=== PATIENT | female | born 1975 | race Two or more races ===

== ENCOUNTER 2023-09-21 06:35 | Day surgery (SDC) | payer MEDICARE, MEDICAID, SELFPAY ==
[2023-09-20 13:27] LABS: Alanine Aminotransferase 21 U/L (10-49); Albumin, Serum 4.1 gm/dL (3.5-5.0); Albumin/Globulin Ratio 1.1 (1.2-2.2); Alkaline Phosphatase 130 U/L (46-116); Anion Gap 5 (7-16); Aspartate Amino Transferase 14 U/L (0-34); BUN/Creatinine Ratio 19 Ratio (12-20); Bilirubin,Total 0.2 mg/dL (0.3-1.2); Blood Urea Nitrogen 15 mg/dL (9-23); Calcium 9.9 mg/dL (8.3-10.6); Calcium (Corrected) 9.9 mg/dL (8.5-10.1); Carbon Dioxide 28.6 mMol/L (20.0-31.0); Chloride 104 mMol/L (98-107); Creatinine (Component) 0.8 mg/dL (0.6-1.3); Globulin 3.9 gm/dL (2.3-3.5); Glucose 92 mg/dL (74-106); Osmolality,Calculated 276 (275-295); Potassium 4.2 mMol/L (3.4-5.1); Sodium 138 mMol/L (136-145); eGFR > 60 See Note
[2023-09-20 13:37] LABS: COVID-19 Antigen (In-House) Negative (Negative)
--- NOTE | 2023-09-20 14:42 | SUR.PREOP ---
Caregiver Elena notified to bring pt at 0630 tomorrow for preop.
[2023-09-21] VITALS (9 sets, daily range): BP systolic 137–170; BP diastolic 82–98; PULSE 75–95; RESP 12–20; TEMP 36.2–37; O2SAT 92–99; BMI 55.3
[2023-09-21] MEDS: ALBUTEROL RT 2.5 MG/3 ML NEBU INH (07:31)
[2023-09-21] MEDS: RINGERS LACTATED 1000 ML 1,000 ML 20 ML IV (07:32)
--- NOTE | 2023-09-21 08:30 | XR_ITS ---
Examination: Bilateral retrograde pyelograms with without KUB Fluoroscopy 11 spot fluoroscopic abdomen films Exam date and time: September 21, 2023 0933 hours INDICATIONS: History bilateral staghorn calculi ureteral stent placement, retrograde study July 21, 2023 replacement ureteral stents TECHNIQUE AND FINDINGS: 11 spot fluoroscopic films of the abdomen obtained Partial opacification of mildly dilated left renal collecting system and minimal opacification right renal collecting system Ureteral stents satisfactory position Fluoroscopy 119 seconds radiation dose 58.48 milligray IMPRESSION: Bilateral retrograde pyelograms as above
--- NOTE | 2023-09-21 12:10 | SUR.PHASEI ---
1210: Pt. AAOx4, vitals stable, breathing unlabored, no complaint of pain or nausea, urostoma in place draining hematuria, no dressing in place, report received from David DICKSON and MD Almodovar.
--- NOTE | 2023-09-21 13:10 | SUR.PHASEII ---
1310: Pt. AAOx4, vitals stable, breathing unlabored, no complaint of pain or nausea, urotomy bag drained, pt. tolerated sips of water well, pt. transferred into wheelchair, no complications. Gave discharge instructions to the pt. and her ride, both verbalized understanding and had no further questions. Pt. left with all personal belongings.
--- NOTE | 2023-09-21 14:24 | ESOP_ITS ---
RE: KANWAL HAGAN : 1975 DATE OF OPERATION: 09/21/2023 PREPROCEDURE DIAGNOSIS: Residual from bilateral renal staghorn stones, ileal conduit urinary diversion. POSTPROCEDURE DIAGNOSIS: Status post retrograde intrarenal surgery, stage II bilateral. PROCEDURE PERFORMED: Fluoroscopic imaging of upper urinary tract; cystoscopy; placement of safety wires bilateral; retrograde intrarenal surgery, left with laser stone fragmentation; placement of indwelling ureteral stent, left; retrograde endoscopic evaluation of right upper urinary tract with placement of indwelling ureteral stent, right. SURGEON: Kameron Crum MD FIRE PILOT SURGEON: Lesly Miner MD ANESTHESIA: General. INDICATIONS: This patient is a 48-year-old lady who comes for continuation of treatment of complex bilateral renal staghorn stone disease. The patient has an ileal conduit and recurrent urinary tract infections. At this point, she comes for second stage procedure with retrograde intrarenal surgery to treat residual from bilateral complete staghorn stones. Treatment indication as long as risks, benefits, and alternatives were discussed with the patient in detail and appropriate consent was again obtained. DESCRIPTION OF FINDINGS: Fluoroscopically faint stone shadows overlying the caliceal system of both kidneys is noted. The indwelling stents bilaterally have dropped down into the ileal conduit. After establishment of bilateral safety wires, endoscopic evaluation of the left upper urinary tract was performed. This showed some stone gravel in the ureter, which is fragmented and then removed with basketing in the kidney upper, mid, and lower calices are still harboring stone material and the upper and mid renal area can be treated with laser fragmentation and coagulation. The lower azam cannot be fully reached and safely treated with laser; therefore treatment on this azam is abundant in the interest of safety. Contrast was again injected, confirming the integrity of the left upper urinary tract. An indwelling stent is placed over the safety wire and under fluoroscopic and endoscopic control positioned correctly in the kidney and ileal conduit. Next endoscopic evaluation of the right upper tract was performed. Much smaller stone burden, which is obviously now located in the renal pelvis. This is encountered. Attempts to treat this with laser is technically not feasible as the laser fiber cannot be advanced through the scope's work channel. Therefore, treatment is terminated. New indwelling stent is placed on the right side with the proximal coil correctly in kidney and distal coil in the ileal conduit. The patient was awakened and returned to recovery where she arrived in satisfactory condition. ESTIMATED BLOOD LOSS: Minimal. COMPLICATIONS: None. SPECIMENS: Stone for culture and sensitivity testing. DISPOSITION: The patient will be discharged home from the outpatient surgical area. Plans will be made to bring the patient back for an additional treatment session with shockwave lithotripsy will be employed for fragmentation of those stone parts that cannot be safely reached with endoscopy and at the same time, stone material will be actively removed to clear out the residual stone material. DT: 11:50:43 TT: 13:55:00 Ref: [id number] - TID: [id number] MTDD
== END 2023-09-21 13:10 | disposition home or self-care (01) ==
PROVIDERS: Anesthesiology; PCP Family Medicine; Referring Provider Urology; Visit Provider Specialist
PROC: 0TJB8ZZ Inspection of Bladder, Via Natural or Artificial Opening Endoscopic (ICD-10-PCS; CPT 52000; principal; 2023-09-21 08:30)
DX: N20.0 Calculus of kidney (principal); Z87.440 Personal history of urinary (tract) infections; Z11.52 Encounter for screening for COVID-19; Z01.812 Encounter for preprocedural laboratory examination; E66.01 Morbid (severe) obesity due to excess calories; J44.9 Chronic obstructive pulmonary disease, unspecified; Z68.43 Body mass index [BMI] 50.0-59.9, adult
CPT/HCPCS: 52332; 36415; 74420; 80053; 87070; 87075; 87205; 87811; A4217; A4649; C1769; C1889; C1894; C2617; J1580; J1940; J2250; J2371; J2405; J2704; J2765; J3010; J3490; J7120; A9270; C1893

== ENCOUNTER → 2024-05-21 | Outpatient (CLI) | payer MEDICARE, MEDICAID, SELFPAY | END | disposition home or self-care (01) | LOC: SWHD 10:36 | PROVIDERS: PCP Nurse Practitioner Family; Referring Provider Nurse Practitioner Family; Visit Provider Student in an Organized Health Care Education/Training Program | DX: L89.312 Pressure ulcer of right buttock, stage 2 (principal); L89.892 Pressure ulcer of other site, stage 2; E66.01 Morbid (severe) obesity due to excess calories; Q05.9 Spina bifida, unspecified; M86.8X7 Other osteomyelitis, ankle and foot; Z89.421 Acquired absence of other right toe(s); G82.20 Paraplegia, unspecified | CPT/HCPCS: 97597; A9270 ==

== ENCOUNTER → 2024-05-28 | Outpatient (CLI) | payer MEDICARE, MEDICAID, SELFPAY | END | disposition home or self-care (01) | LOC: SWHD 12:53 | PROVIDERS: PCP Nurse Practitioner Family; Referring Provider Nurse Practitioner Family; Visit Provider Student in an Organized Health Care Education/Training Program | DX: L89.312 Pressure ulcer of right buttock, stage 2 (principal); L89.892 Pressure ulcer of other site, stage 2; E66.01 Morbid (severe) obesity due to excess calories; Q05.9 Spina bifida, unspecified; M86.8X7 Other osteomyelitis, ankle and foot; G82.20 Paraplegia, unspecified; Z89.421 Acquired absence of other right toe(s) | CPT/HCPCS: 99213; G0463 ==

== ENCOUNTER → 2024-06-11 | Outpatient (CLI) | payer MEDICARE, MEDICAID, SELFPAY | END | disposition home or self-care (01) | LOC: SWHD 12:40 | PROVIDERS: PCP Nurse Practitioner Family; Referring Provider Nurse Practitioner Family; Visit Provider Student in an Organized Health Care Education/Training Program | DX: L89.312 Pressure ulcer of right buttock, stage 2 (principal); L89.892 Pressure ulcer of other site, stage 2; E66.01 Morbid (severe) obesity due to excess calories; Q05.9 Spina bifida, unspecified; M86.8X7 Other osteomyelitis, ankle and foot; G82.20 Paraplegia, unspecified; Z89.421 Acquired absence of other right toe(s) | CPT/HCPCS: 97597 ==

== ENCOUNTER → 2024-06-25 | Outpatient (CLI) | payer MEDICARE, MEDICAID, SELFPAY | END | disposition home or self-care (01) | LOC: SWHD 12:32 | PROVIDERS: PCP Nurse Practitioner Family; Referring Provider Nurse Practitioner Family; Visit Provider Student in an Organized Health Care Education/Training Program | DX: L89.312 Pressure ulcer of right buttock, stage 2 (principal); L89.892 Pressure ulcer of other site, stage 2; E66.01 Morbid (severe) obesity due to excess calories; Q05.9 Spina bifida, unspecified; M86.8X7 Other osteomyelitis, ankle and foot; Z89.421 Acquired absence of other right toe(s); G82.20 Paraplegia, unspecified | CPT/HCPCS: 99213; A9270; G0463 ==

== ENCOUNTER → 2024-07-09 | Outpatient (CLI) | payer MEDICARE, MEDICAID, SELFPAY | END | disposition home or self-care (01) | LOC: SWHD 12:31 | PROVIDERS: PCP Nurse Practitioner Family; Referring Provider Nurse Practitioner Family; Visit Provider Surgery | DX: L89.312 Pressure ulcer of right buttock, stage 2 (principal); L98.491 Non-pressure chronic ulcer of skin of other sites limited to breakdown of skin; S71.101A Unspecified open wound, right thigh, initial encounter; X58.XXXA Exposure to other specified factors, initial encounter; E66.01 Morbid (severe) obesity due to excess calories; Q05.9 Spina bifida, unspecified; M86.8X7 Other osteomyelitis, ankle and foot; Z89.421 Acquired absence of other right toe(s); G82.20 Paraplegia, unspecified | CPT/HCPCS: 99213; G0463 ==

== ENCOUNTER → 2024-07-19 | Outpatient (BNVA) | payer MEDICARE, MEDICAID, SELFPAY | END | disposition home or self-care (01) | PROVIDERS: PCP Nurse Practitioner Family; Referring Provider Nurse Practitioner Family; Visit Provider Urology | DX: N31.9 Neuromuscular dysfunction of bladder, unspecified (principal); N39.0 Urinary tract infection, site not specified; Q05.9 Spina bifida, unspecified; Z99.3 Dependence on wheelchair; E66.9 Obesity, unspecified; Z68.43 Body mass index [BMI] 50.0-59.9, adult; K21.9 Gastro-esophageal reflux disease without esophagitis | CPT/HCPCS: 99212; G0463 ==

== ENCOUNTER → 2024-08-06 | Outpatient (CLI) | payer MEDICARE, MEDICAID, SELFPAY | END | disposition home or self-care (01) | LOC: SWHD 10:32 | PROVIDERS: PCP Nurse Practitioner Family; Referring Provider Nurse Practitioner Family; Visit Provider Student in an Organized Health Care Education/Training Program | DX: L89.312 Pressure ulcer of right buttock, stage 2 (principal); L98.491 Non-pressure chronic ulcer of skin of other sites limited to breakdown of skin; S71.101A Unspecified open wound, right thigh, initial encounter; X58.XXXA Exposure to other specified factors, initial encounter; E66.01 Morbid (severe) obesity due to excess calories; Q05.9 Spina bifida, unspecified; M86.8X7 Other osteomyelitis, ankle and foot; Z89.421 Acquired absence of other right toe(s); G82.20 Paraplegia, unspecified | CPT/HCPCS: 99214; A9270; G0463 ==

== ENCOUNTER → 2024-09-03 | Outpatient (CLI) | payer MEDICARE, MEDICAID, SELFPAY | END | disposition home or self-care (01) | LOC: SWHD 10:30 | PROVIDERS: PCP Nurse Practitioner Family; Referring Provider Nurse Practitioner Family; Visit Provider Surgery | DX: L89.312 Pressure ulcer of right buttock, stage 2 (principal); L98.491 Non-pressure chronic ulcer of skin of other sites limited to breakdown of skin; S71.101A Unspecified open wound, right thigh, initial encounter; X58.XXXA Exposure to other specified factors, initial encounter; E66.01 Morbid (severe) obesity due to excess calories; Q05.9 Spina bifida, unspecified; M86.8X7 Other osteomyelitis, ankle and foot; Z89.421 Acquired absence of other right toe(s); G82.20 Paraplegia, unspecified; R60.0 Localized edema | CPT/HCPCS: 99213; A9270; G0463 ==

== ENCOUNTER → 2024-09-10 | Outpatient (CLI) | payer MEDICARE, MEDICAID, SELFPAY | END | disposition home or self-care (01) | LOC: SWHD 14:21 | PROVIDERS: PCP Nurse Practitioner Family; Referring Provider Nurse Practitioner Family; Visit Provider Student in an Organized Health Care Education/Training Program | DX: L98.491 Non-pressure chronic ulcer of skin of other sites limited to breakdown of skin (principal); S71.101A Unspecified open wound, right thigh, initial encounter; X58.XXXA Exposure to other specified factors, initial encounter; E66.01 Morbid (severe) obesity due to excess calories; Q05.9 Spina bifida, unspecified; M86.8X7 Other osteomyelitis, ankle and foot; Z89.421 Acquired absence of other right toe(s); G82.20 Paraplegia, unspecified; R60.0 Localized edema | CPT/HCPCS: 99213; A9270; G0463 ==

== ENCOUNTER → 2024-09-24 | Outpatient (CLI) | payer MEDICARE, MEDICAID, SELFPAY | END | disposition home or self-care (01) | LOC: SWHD 12:45 | PROVIDERS: PCP Nurse Practitioner Family; Referring Provider Nurse Practitioner Family; Visit Provider Student in an Organized Health Care Education/Training Program | DX: L89.312 Pressure ulcer of right buttock, stage 2 (principal); E66.01 Morbid (severe) obesity due to excess calories; Q05.9 Spina bifida, unspecified; M86.8X7 Other osteomyelitis, ankle and foot; Z89.421 Acquired absence of other right toe(s); G82.20 Paraplegia, unspecified; R60.0 Localized edema | CPT/HCPCS: 99213; G0463 ==

== ENCOUNTER → 2024-10-14 | Outpatient (CLI) | payer MEDICARE, MEDICAID, SELFPAY ==
[2024-10-14 13:09] LABS: Basophils % (Auto) 1 % (0-2.5); Eosinophils # (Auto) 0.2 Thou/mm3 (0.0-0.5); Eosinophils % (Auto) 3 % (0-10); Hematocrit 37.1 % (36.0-46.0); Hemoglobin 11.4 g/dL (12.0-16.0); Immature Granulocytes % (Auto) 0 % (0-0); Immature Granulocytes Auto 0.01 Thou/mm3 (0.00-0.00); Immature Reticulocyte Fraction 14.8 % (3.0-15.9); Lymphocytes # (Auto) 1.1 Thou/mm3 (1.0-4.8); Lymphocytes % (Auto) 19 % (10-50); Mean Corpuscular HGB Conc 30.7 g/dl (31.0-37.0); Mean Corpuscular Hemoglobin 30.2 pg (25.0-35.0); Mean Corpuscular Volume 98 fL (80-100); Monocytes # (Auto) 0.4 Thou/mm3 (0.0-0.8); Monocytes % (Auto) 8 % (0-12); Neutrophils # (Auto) 3.9 Thou/mm3 (1.8-7.7); Neutrophils % (Auto) 70 % (37-80); Nucleated Red Blood Cell % 0 /100 WBC (0); Platelet Count 296 Thou/mm3 (140-440); RDW Standard Deviation 50.4 fL (36.4-46.3); Red Blood Count 3.78 Miln/mm3 (4.00-5.20); Reticulocyte % (Auto) 2.3 % (0.5-1.5); Reticulocyte Hgb Content 32.2 pg (28.0-35.0); White Blood Count 5.6 Thou/mm3 (3.6-11.0)
[2024-10-14 13:32] LABS: Ferritin 264 ng/mL (7.3-270.7); Iron 57 mcg/dL (50-170); Percent Iron Saturation 22 % (20-55); Total Iron Binding Capacity 258 mcg/dL (250-425); Unsaturated Iron Binding 201 (225-295)
[2024-10-14 13:37] LABS: Folate > 24.00 ng/mL (>5.38); Vitamin B12 543 pg/mL (211-911)
[2024-10-14 13:44] LABS: Alanine Aminotransferase < 7 U/L (10-49); Albumin, Serum 4.2 gm/dL (3.5-5.0); Alkaline Phosphatase 127 U/L (46-116); Anion Gap 7 (7-16); Aspartate Amino Transferase < 8 U/L (0-34); BUN/Creatinine Ratio 25 Ratio (12-20); Bilirubin,Total 0.2 mg/dL (0.3-1.2); Blood Urea Nitrogen 38 mg/dL (9-23); Calcium 9.5 mg/dL (8.3-10.6); Calcium (Corrected) 9.5 mg/dL (8.5-10.1); Carbon Dioxide 21.7 mMol/L (20.0-31.0); Chloride 109 mMol/L (98-107); Creatinine (Component) 1.5 mg/dL (0.6-1.3); Globulin 4.3 gm/dL (2.3-3.5); Glucose 98 mg/dL (74-106); Osmolality,Calculated 284 (275-295); Potassium 4.3 mMol/L (3.4-5.1); Sodium 138 mMol/L (136-145); Total Protein 8.5 gm/dL (5.7-8.2); eGFR 42 See Note
== END | disposition home or self-care (01) ==
PROVIDERS: PCP Nurse Practitioner Family; Referring Provider Nurse Practitioner Family; Visit Provider Nurse Practitioner Family
DX: D50.0 Iron deficiency anemia secondary to blood loss (chronic) (principal)
CPT/HCPCS: 36415; 80053; 82607; 82728; 82746; 83540; 83550; 85025; 85046

== ENCOUNTER → 2024-10-29 | Outpatient (CLI) | payer MEDICARE, MEDICAID, SELFPAY | END | disposition home or self-care (01) | LOC: SWHD 12:35 | PROVIDERS: PCP Nurse Practitioner Family; Referring Provider Nurse Practitioner Family; Visit Provider Student in an Organized Health Care Education/Training Program | DX: L89.312 Pressure ulcer of right buttock, stage 2 (principal); E66.01 Morbid (severe) obesity due to excess calories; Q05.9 Spina bifida, unspecified; M86.8X7 Other osteomyelitis, ankle and foot; Z89.421 Acquired absence of other right toe(s); G82.20 Paraplegia, unspecified; R60.0 Localized edema | CPT/HCPCS: 99212; G0463 ==

== ENCOUNTER → 2024-11-21 | Outpatient (CLI) | payer MEDICARE, MEDICAID, SELFPAY ==
[2024-11-21 13:10] LABS: Basophils % (Auto) 0 % (0-2.5); Eosinophils # (Auto) 0.1 Thou/mm3 (0.0-0.5); Eosinophils % (Auto) 2 % (0-10); Hematocrit 34.3 % (36.0-46.0); Immature Granulocytes % (Auto) 0 % (0-0); Immature Granulocytes Auto 0.03 Thou/mm3 (0.00-0.00); Immature Reticulocyte Fraction 15.8 % (3.0-15.9); Lymphocytes # (Auto) 1.2 Thou/mm3 (1.0-4.8); Lymphocytes % (Auto) 17 % (10-50); Mean Corpuscular HGB Conc 32.1 g/dl (31.0-37.0); Mean Corpuscular Hemoglobin 30.2 pg (25.0-35.0); Mean Corpuscular Volume 94 fL (80-100); Monocytes # (Auto) 0.5 Thou/mm3 (0.0-0.8); Monocytes % (Auto) 8 % (0-12); Neutrophils # (Auto) 4.9 Thou/mm3 (1.8-7.7); Neutrophils % (Auto) 72 % (37-80); Nucleated Red Blood Cell % 0 /100 WBC (0); Platelet Count 429 Thou/mm3 (140-440); RDW Standard Deviation 47.4 fL (36.4-46.3); Red Blood Count 3.64 Miln/mm3 (4.00-5.20); Reticulocyte % (Auto) 2.1 % (0.5-1.5); Reticulocyte Absolute Auto 75.3 Biln/L (25.0-75.0); Reticulocyte Hgb Content 33.5 pg (28.0-35.0); White Blood Count 6.8 Thou/mm3 (3.6-11.0)
[2024-11-21 13:33] LABS: Ferritin 405 ng/mL (7.3-270.7); Iron 30 mcg/dL (50-170); Percent Iron Saturation 12 % (20-55); Total Iron Binding Capacity 234 mcg/dL (250-425); Unsaturated Iron Binding 204 (225-295)
[2024-11-21 13:37] LABS: Folate > 24.00 ng/mL (>5.38); Vitamin B12 1029 pg/mL (211-911)
[2024-11-21 13:46] LABS: Alanine Aminotransferase 7 U/L (10-49); Albumin, Serum 4.1 gm/dL (3.5-5.0); Alkaline Phosphatase 121 U/L (46-116); Anion Gap 11 (7-16); Aspartate Amino Transferase < 8 U/L (0-34); BUN/Creatinine Ratio 24 Ratio (12-20); Bilirubin,Total < 0.2 mg/dL (0.3-1.2); Blood Urea Nitrogen 53 mg/dL (9-23); Calcium 9.2 mg/dL (8.3-10.6); Calcium (Corrected) 9.2 mg/dL (8.5-10.1); Chloride 107 mMol/L (98-107); Creatinine (Component) 2.2 mg/dL (0.6-1.3); Globulin 4.1 gm/dL (2.3-3.5); Glucose 86 mg/dL (74-106); Osmolality,Calculated 281 (275-295); Potassium 5.6 mMol/L (3.4-5.1); Sodium 134 mMol/L (136-145); Total Protein 8.2 gm/dL (5.7-8.2); eGFR 27 See Note
== END | disposition home or self-care (01) ==
LOC: SLAB 12:09
PROVIDERS: PCP Nurse Practitioner Family; Referring Provider Nurse Practitioner Family; Visit Provider Nurse Practitioner Family
DX: D50.0 Iron deficiency anemia secondary to blood loss (chronic) (principal); E55.9 Vitamin D deficiency, unspecified; E78.5 Hyperlipidemia, unspecified
CPT/HCPCS: 36415; 80053; 82607; 82728; 82746; 83540; 83550; 85025; 85046

== ENCOUNTER → 2024-11-25 | Outpatient (CLI) | payer MEDICARE, MEDICAID, SELFPAY ==
[2024-11-25 11:27] LABS: Cardiac Risk Estimate 3.3 RATIO (3.7-5.6); Cholesterol 156 mg/dL (132-200); HDL Cholesterol 48 mg/dL (40-60); LDL Cholesterol,Calculated 78 mg/dL (0-130); Triglycerides 151 mg/dL (30-150)
[2024-11-25 11:30] LABS: Vitamin D 25 Hydroxy Total 117.3 ng/mL (7.3-40.2)
== END | disposition home or self-care (01) ==
PROVIDERS: PCP Nurse Practitioner Family; Referring Provider Nurse Practitioner Family; Visit Provider Nurse Practitioner Family
DX: E55.9 Vitamin D deficiency, unspecified (principal); E78.5 Hyperlipidemia, unspecified
CPT/HCPCS: 36415; 80061; 82306

== ENCOUNTER 2024-12-10 10:54 | Outpatient (RCR) | payer MEDICARE, MEDICAID, SELFPAY | END 2024-12-23 23:59 | disposition home or self-care (01) | LOC: SCTC 10:54 | PROVIDERS: PCP Nurse Practitioner Family; Referring Provider Nurse Practitioner Family; Visit Provider Nurse Practitioner Family | DX: D50.9 Iron deficiency anemia, unspecified (principal); K59.00 Constipation, unspecified; N39.0 Urinary tract infection, site not specified; Z87.442 Personal history of urinary calculi | CPT/HCPCS: 87077; 87086; 87186; 99212; G0463 ==

== ENCOUNTER → 2024-12-10 | Outpatient (CLI) | payer MEDICARE, MEDICAID, SELFPAY | END | disposition home or self-care (01) | PROVIDERS: PCP Nurse Practitioner Family; Referring Provider Nurse Practitioner; Visit Provider Nurse Practitioner | DX: N39.0 Urinary tract infection, site not specified (principal) | CPT/HCPCS: 87077; 87086; 87186 ==

== ENCOUNTER → 2024-12-12 | Outpatient (CLI) | payer MEDICARE, MEDICAID, SELFPAY | END | disposition home or self-care (01) | PROVIDERS: PCP Nurse Practitioner Family; Referring Provider Nurse Practitioner Family; Visit Provider Student in an Organized Health Care Education/Training Program | DX: L89.312 Pressure ulcer of right buttock, stage 2 (principal); E66.01 Morbid (severe) obesity due to excess calories; Q05.9 Spina bifida, unspecified; M86.8X7 Other osteomyelitis, ankle and foot; Z89.421 Acquired absence of other right toe(s); G82.20 Paraplegia, unspecified; R60.0 Localized edema | CPT/HCPCS: 17250; 99213; A9270; G0463 ==

== ENCOUNTER 2024-12-17 15:07 | Inpatient (IN) | payer MEDICARE, MEDICAID, SELFPAY ==
[2024-12-17 15:08] VITALS: BMI 52.7
[2024-12-17 15:23] VITALS: BP 109/74; PULSE 104; RESP 18; TEMP 37.1; O2SAT 96
--- NOTE | 2024-12-17 15:30 | PD.EDRME ---
Rapid Medical Screening Exam RME Arrival date/time: 12/17/24 15:07 49-year-old female with history of spina bifida and neurogenic bladder with urostomy presents with concerns for abnormal lab work patient is here with caregiver who reports that the patient had an abnormal urine culture and was sent here for IV antibiotics and further treatment Chief Complaint: General Adult/Misc Complain Time Seen by Provider: 12/17/24 15:14 Vital signs: Vital Signs Temperature 98.8 F 12/17/24 15:23 Pulse Rate 104 H 12/17/24 15:23 Respiratory Rate 18 12/17/24 15:23 Blood Pressure 109/74 12/17/24 15:23 Pulse Oximetry (%) 96 12/17/24 15:23 Oxygen Delivery Method Room Air 12/17/24 15:23
[2024-12-17 16:13] LABS: Lactate (Lactic Acid) 0.9 mMol/L (0.4-2.0)
[2024-12-17 16:18] LABS: Basophils % (Auto) 0 % (0-2.5); Eosinophils # (Auto) 0.1 Thou/mm3 (0.0-0.5); Eosinophils % (Auto) 2 % (0-10); Hematocrit 34.3 % (36.0-46.0); Immature Granulocytes % (Auto) 1 % (0-0); Immature Granulocytes Auto 0.03 Thou/mm3 (0.00-0.00); Lymphocytes # (Auto) 1.3 Thou/mm3 (1.0-4.8); Lymphocytes % (Auto) 20 % (10-50); Mean Corpuscular HGB Conc 32.1 g/dl (31.0-37.0); Mean Corpuscular Hemoglobin 30.5 pg (25.0-35.0); Mean Corpuscular Volume 95 fL (80-100); Monocytes # (Auto) 0.8 Thou/mm3 (0.0-0.8); Monocytes % (Auto) 12 % (0-12); Neutrophils # (Auto) 4.1 Thou/mm3 (1.8-7.7); Neutrophils % (Auto) 65 % (37-80); Nucleated Red Blood Cell % 0 /100 WBC (0); Platelet Count 428 Thou/mm3 (140-440); RDW Standard Deviation 54.3 fL (36.4-46.3); Red Blood Count 3.61 Miln/mm3 (4.00-5.20); White Blood Count 6.2 Thou/mm3 (3.6-11.0)
[2024-12-17 16:55] LABS: Alanine Aminotransferase 7 U/L (10-49); Albumin, Serum 3.8 gm/dL (3.5-5.0); Alkaline Phosphatase 117 U/L (46-116); Anion Gap 13 (7-16); Aspartate Amino Transferase < 8 U/L (0-34); BUN/Creatinine Ratio 28 Ratio (12-20); Bilirubin,Total < 0.2 mg/dL (0.3-1.2); Calcium 9.3 mg/dL (8.3-10.6); Calcium (Corrected) 9.5 mg/dL (8.5-10.1); Chloride 112 mMol/L (98-107); Creatinine (Component) 3.9 mg/dL (0.6-1.3); Globulin 3.8 gm/dL (2.3-3.5); Glucose 93 mg/dL (74-106); Osmolality,Calculated 304 (275-295); Potassium 5.5 mMol/L (3.4-5.1); Procalcitonin 0.27 ng/ml (0.0-0.49); Sodium 135 mMol/L (136-145); Total Protein 7.6 gm/dL (5.7-8.2); eGFR 13 See Note
[2024-12-17 16:57] LABS: Blood Urea Nitrogen 108 mg/dL (9-23); Carbon Dioxide < 10.0 mMol/L (20.0-31.0)
[2024-12-17 19:18] LABS: Collection Type, Urine Clean Catch; Squamous Epithelial Cell,Urine 0 /hpf (0-5)
[2024-12-17 19:30] LABS: HCG Qualitative,Urine Negative
[2024-12-17 19:46] LABS: Amorphous Crystals,Urine Present (Absent); Bacteria,Urine 2+; Bilirubin,Urine Negative (Negative); Blood,Urine 2+ (Negative); Color,Urine Orange (Lt Yel-Yel); Glucose, Urine Negative (Negative); Ketones,Urine Negative (Negative); Leukocyte Esterase,Urine Positive (Negative); Nitrite,Urine Negative (Negative); Protein,Urine 3+ (Neg - Trace); RBC,Urine 14 /hpf (0-3); Specific Gravity,Urine 1.016 (1.001-1.035); Urobilinogen,Urine Negative mg/dL (0.0-1.0); WBC,Urine 951 /hpf (0-5)
--- NOTE | 2024-12-17 19:47 | PD.EDADULT ---
ED General RME/HPI General Chief complaint: General Adult[facility] Complain Stated complaint: sent by PCP for abnormal labs Time Seen by Provider: 12/17/24 15:14 Arrival date/time: Patient is a 49-year-old female with a history of spina bifida and chronic decubitus ulcers. She is here for 2 separate reasons. 1. She states her PCP sent her here for concerns for abnormal labs and kidney function. She has no abdominal pain, nausea, vomiting. She has no fevers or chills. She denies any changes in urination, she does have a urostomy. 2. She has chronic decubitus ulcers and is followed by wound care. She states she has her wounds cared for at least once weekly and would like these evaluated. Patient uses electronic wheelchair, she lives at home with her mother. Past surgical history is vague. Patient states she had surgical reconstruction due to decubitus wounds that includes her rectum in 2004 at [facility] in [facility]. She states her urostomy was last worked on 20+ years ago, however she does not recall where that was done. Mode of arrival: wheelchair Limitations: no limitations RME / HPI RME / HPI narrative: 12/17/24 15:07 49-year-old female with history of spina bifida and neurogenic bladder with urostomy presents with concerns for abnormal lab work patient is here with caregiver who reports that the patient had an abnormal urine culture and was sent here for IV antibiotics and further treatment Related Data Home Medications ?Medication ?Instructions ?Recorded ?Confirmed albuterol sulfate 90 mcg/actuation 2 puff inhalation Q4HR PRN 05/25/23 07/19/24 aerosol inhaler Shortness Of Breath cholecalciferol (vitamin D3) 125 125 mcg PO QDAY 05/25/23 07/19/24 mcg (5,000 unit) tablet (Vitamin D3) escitalopram oxalate 20 mg tablet 20 mg PO QDAY 05/25/23 07/19/24 (Lexapro) fluticasone propionate 50 1 spray intranasal BID 05/25/23 07/19/24 mcg/actuation nasal spray,suspension loratadine 10 mg capsule 10 mg PO QDAY 05/25/23 07/19/24 potassium chloride 15 mEq 15 meq PO BID 05/25/23 07/19/24 tablet,extended release(part/cryst) zolpidem 5 mg tablet (Ambien) 5 mg PO HS 05/25/23 07/19/24 docusate sodium 100 mg capsule 100 mg PO 1XD PRN Constipation 09/25/23 07/19/24 lactulose 10 gram/15 mL oral 15 - 30 ml PO PRN PRN Constipation 09/25/23 07/19/24 solution linaclotide 145 mcg capsule 145 mcg PO QAM 02/23/24 07/19/24 (Linzess) levofloxacin 500 mg tablet 500 mg PO QDAY 04/18/24 07/19/24 mupirocin 2 % topical ointment 1 applic topical DAILY 04/18/24 07/19/24 nystatin 100,000 unit/gram topical 1 applic topical DAILY 04/18/24 07/19/24 ointment polyethylene glycol 3350 17 4 g PO QDAY 07/19/24 07/19/24 gram/dose oral powder (Miralax) Previous Rx's ?Medication ?Instructions ?Recorded ferrous sulfate 325 mg (65 mg 325 mg PO Q OTHER DAY 1 month #15 02/24/24 iron) tablet tabs Allergies Allergy/AdvReac Type Severity Reaction Status Date / Time vancomycin Allergy Severe RASH/ITCHIN Verified 07/19/24 12:19 G Review of Systems Review of Systems Systems Reviewed: All systems reviewed, normal except as documented ED Exam General Limitations: Present no limitations General appearance: Present alert and in no apparent distress Head Head exam: Present atraumatic Eye Eye exam: Present normal appearance, PERRL and EOMI ENT ENT exam: Present normal exam, normal oropharynx and mucous membranes moist Neck Neck exam: Present normal inspection, full ROM and trachea midline Chest Chest inspection: Present normal inspection and symmetric chest wall rise Respiratory Respiratory exam: Present normal lung sounds bilaterally Cardiovascular Cardiovascular exam: Present regular rate, normal rhythm and normal heart sounds Abdominal Exam Abdominal exam: Present soft and normal bowel sounds Neurological Exam Neurological exam: Present alert and oriented X3 Psychiatric Psychiatric exam: Present normal affect and normal mood Skin Skin exam: Present other (There is extensive scarring and mild erythema at the posterior back superficial to the sacrum. There are few areas of erythema and purulent drainage that is cultured.) Course Quality Measures none Orders Category Date Time Status Blood Culture (Lab) Stat Lab 12/17/24 15:53 Received CBC Stat Lab 12/17/24 15:53 Completed Comprehensive Metabolic Panel Stat Lab 12/17/24 15:53 Completed HCG Qualitative,Urine Stat Lab 12/17/24 19:15 Completed Lactic Acid [Lactate (Lactic Acid)] Stat Lab 12/17/24 15:53 Completed Procalcitonin Stat Lab 12/17/24 15:53 Completed UA, C/S IF [Urinalysis, C/S if Indicated] Stat Lab 12/17/24 19:15 Completed Urine Culture Stat Lab 12/17/24 19:15 Received Vital Signs Vital signs: Vital Signs Temperature 98.8 F 12/17/24 15:23 Pulse Rate 104 H 12/17/24 15:23 Respiratory Rate 18 12/17/24 15:23 Blood Pressure 109/74 12/17/24 15:23 Pulse Oximetry (%) 96 12/17/24 15:23 Oxygen Delivery Method Room Air 12/17/24 15:23 Discharge Plan Plan Patient Disposition: Admit Acute Care w/in Hospital Patient condition on transfer: Stable Prescriptions/Referrals Prescriptions/Med Rec: No Action polyethylene glycol 3350 [Miralax] 17 gram/dose powder 4 g PO QDAY zolpidem [Ambien] 5 mg Tablet 5 mg PO HS albuterol sulfate 90 mcg/actuation Hfa Aerosol Inhaler 2 puff INHALATION Q4HR PRN (Reason: Shortness Of Breath) fluticasone propionate 50 mcg/actuation [place],Suspension 1 spray INTRANASAL BID Rx Instructions: administer into each nostril escitalopram oxalate [Lexapro] 20 mg Tablet 20 mg PO QDAY potassium chloride 15 mEq Tablet,Er Particles/Crystals 15 meq PO BID cholecalciferol (vitamin D3) [Vitamin D3] 125 mcg (5,000 unit) Tablet 125 mcg PO QDAY loratadine 10 mg Capsule 10 mg PO QDAY lactulose 10 gram/15 mL solution 15 - 30 ml PO PRN PRN (Reason: Constipation) Patient Comments: TAKE 15 ML TO 30 ML BY MOUTH DAILY NEEDED FOR CONSTIPATION docusate sodium 100 mg capsule 100 mg PO 1XD PRN (Reason: Constipation) Patient Comments: TAKE ONE CAPSULE BY MOUTH EVERY DAY NEEDED Linzess 145 mcg capsule 145 mcg PO QAM ferrous sulfate 325 mg (65 mg iron) Tablet 325 mg PO Q OTHER DAY 30 Days Qty: 15 0RF nystatin 100,000 unit/gram ointment 1 applic TOPICAL DAILY Patient Comments: APPLY TO THE AFFECTED AREA(S) NEEDED Rx Instructions: groin area, perineum mupirocin 2 % ointment 1 applic TOPICAL DAILY Patient Comments: APPLY TO THE AFFECTED AREA(S) EVERY DAY FOR INFECTION Rx Instructions: calcium alginate, adaptic and ABD pad levofloxacin [Levaquin] 500 mg Tablet 500 mg PO QDAY Referrals: Yaima Toro FNP [Primary Care Provider] - In 1 week Problem List Clinical Impression: JOSEPH (acute kidney injury) Patient/Caregiver Discharge Instructions Education Materials: Acute Kidney Failure Dc Print Language: Honduran Stand Alone Forms: Teresa Award Info., Patient Portal Info Letter MDM Narrative MDM hospital course: Case was discussed with our corporate law specialist, Dr. Rivera. No immediate recommendations at this time. She would like the patient to be admitted and she will follow-up. Will admit to the hospitalist. Case discussed with her hospitalist who agrees to accept the patient.
[2024-12-17 19:52] LABS: Clarity,Urine Turbid (Clear/Hazy); Culture Indicated,Urine Yes
[2024-12-17 20:15] VITALS: BP 144/85; PULSE 97; RESP 20; TEMP 36.6; O2SAT 98
--- NOTE | 2024-12-17 22:31 | XR_ITS ---
Examination: CT abdomen and pelvis without contrast. Coronal 3-D reconstructions. Sagittal 2-D reconstructions. Date and time of exam:December 17, 2024, 11:23 PM 2023 INDICATIONS: Flank pain today CTDI: vol (mGy): 26.6 DLP: (mGycm): 1414 Technique: Axial images of the abdomen have been obtained, 3 mm slice thickness Intravenous contrast material has not been administered. Low dose protocols were performed. One or more of the following dose reduction techniques were used; automated exposure control, adjustment of the mA and/or KV according to patient size, use of iterative reconstruction technique. Findings: No liver or splenic lesion Absent gallbladder No pancreatic mass 25 mm fat-containing left adrenal nodule Severe bilateral renal parenchymal scar formation with bilateral renal calculi, the largest in the right kidney posteriorly 20 mm 15 mm left renal pelvic stone 10 mm left ureteral calculus image 174 7 mm right ureteral calculus image 141 Ureteral ileal diversion No bowel obstruction No pericecal inflammatory change Abundant stool in the rectum Absent urinary bladder Extensive soft tissue infection posterior pelvis extending to the anus with marked thickening of the rectal and anal wall Severe osteopenia Fluid collection posterior to L5 Bilateral congenital hip dysplasias IMPRESSION: Bilateral renal calculi. Moderate bilateral hydronephrosis secondary to ureteral calculi as above Abundant stool in the rectum
--- NOTE | 2024-12-17 22:31 | XR_ITS ---
Examination: AP chest single view TECHNIQUE: AP portable semiupright chest single view Date and time: December 17, 2024 at 11:08 PM Comparison September 22, 2023 INDICATIONS: Abnormal renal function and have examination today FINDINGS: Mild prominence of ventricle No pneumonia or pulmonary edema Possible small bilateral pleural effusions IMPRESSION: Possible small bilateral pleural effusions
--- NOTE | 2024-12-17 22:31 | EKG_ITS ---
[facility] Test Date: 2024-12-17 Pat Name: KANWAL HAGAN Department: Room: - Gender: Female Line Operator: : 1975 Requested By: Erasmo Lamas Order Number: [id number] Reading MD: Erasmo Lamas Measurements Intervals [place] Rate: 90 P: 68 MO: 166 QRS: -23 QRSD: 92 T: 39 QT: 350 QTc: 429 Interpretive Statements SINUS RHYTHM LOW QRS VOLTAGE IN PRECORDIAL LEADS [QRS DEFLECTION < 1.0 mV IN CHEST LEADS] INCOMPLETE RIGHT BUNDLE BRANCH BLOCK [90+ ms QRS DURATION, TERMINAL R IN V1/V2, 40+ ms S IN I/aVL/V4/V5/V6] POSSIBLE ANTERIOR MYOCARDIAL INFARCTION , OF INDETERMINATE AGE [30 ms Q WAVE IN V3/V4, OR R < 0.2 mV IN V4] Compared to ECG 09/22/2023 19:13:56 Incomplete right bundle-branch block now present Sinus tachycardia no longer present Myocardial infarct finding still present /store/S0/[id number].pdf
--- NOTE | 2024-12-17 22:43 | ESHP_ITS ---
<Statement entered by Cesar Mcmullen MD - 12/18/24 07:00> I Cesar Mcmullen MD reviewed the note and agree with the resident's assessment & plan with exceptions as below. I have personally reviewed labs, imaging, home meds/prior records, examined the patient, formulated and discussed management plan with the IM team. A 49-year-old female with history of spina bifid with surgical repair, urostomy in place for years presented to ED with abdominal pain and nausea vomiting. Initial workup did reveal hyperkalemia and elevated creatinine 3.[address] abdomen/pelvis revealing bilateral hydronephrosis and evidence of pyelonephritis l leading to acute renal failure. Obtain EKG, CXR, empirically treat with imipenem and vancomycin, started on bicarbonate infusion, consult nephrology, consult IR/urology for evaluation of hydronephrosis. Will continue IV fluid resuscitation and close hyperkalemia monitoring with telemetry and repeat renal panel in 6 hours Documentation for date of: 12/17/24 HPI History of Present Illness Chief complaint: Abdominal pain History of present illness: 49-year-old female with past medical history of spina bifida (wheelchair-bound), neurogenic bladder status post urostomy, chronic decubitus ulcers, recurrent UTIs who was sent to the ED from her PCPs office due to abnormal labs and kidney function. Patient states that she is having abdominal pain in the bilateral lower quadrants for approximately 3 to 4 days, she also states some diarrhea approximately 2 episodes of nonbloody diarrhea. She also endorses some nausea but no vomiting at this time. ED spoke to nephrology who recommended admission for bicarb treatment and possible emergent dialysis. 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 Exam Vital Signs Temp Pulse Resp BP Pulse Ox O2 Del Method 97.8 F 97 20 144/85 H 98 Room Air 12/17/24 20:15 12/17/24 20:15 12/17/24 20:15 12/17/24 20:15 12/17/24 20:15 12/17/24 15:23 Narrative Exam Physical Exam GENERAL: NAD, AAOx3 HEENT: Moist mucosa. Eyes open, symmetrical, & clear CARDIO: Heart RRR, no obvious murmurs PULM: No noted coughing/dyspnea CTA B/L, no R/W/R GI: Abdomen soft, nondistended, no pain on palpation. BSx4, surgical scars noted, urostomy bag noted SKIN/MSK/EXT: Bilateral lower extremity edema, no pain on palpation. Pedal pulses present B/L Results: Labs 12/17/24 15:53 12/17/24 15:53 Labs: Short CBC 12/17/24 Range/Units 15:53 WBC 6.2 (3.6-11.0) Thou/mm3 Hgb 11.0 L (12.0-16.0) g/dL Hct 34.3 L (36.0-46.0) % Plt Count 428 (140-440) Thou/mm3 BMP 12/17/24 15:53 Sodium 135 L Potassium 5.5 H Chloride 112 H Carbon Dioxide < 10.0 L* BUN 108 H* Creatinine 3.9 H Glucose 93 Calcium 9.3 Liver Function 12/17/24 Range/Units 15:53 Total Bilirubin < 0.2 L (0.3-1.2) mg/dL AST < 8 (0-34) U/L ALT 7 L (10-49) U/L Alkaline Phosphatase 117 H (46-116) U/L Albumin 3.8 (3.5-5.0) gm/dL Urine 12/17/24 Range/Units 19:15 Urine Color [place] A (Lt Yel-Yel) Urine Clarity Turbid A (Clear/Hazy) Urine pH 7.0 (5.0-7.0) Ur Specific [place] 1.016 (1.001-1.035) Urine Protein 3+ A (Neg - Trace) Urine Glucose (UA) Negative (Negative) Quality Measures Quality Measures none Medications Home Medications and Allergies Home Medications ?Medication ?Instructions ?Recorded ?Confirmed ?Type albuterol sulfate 90 mcg/actuation 2 puff inhalation Q 4HR PRN 05/25/23 07/19/24 History aerosol inhaler Shortness Of Breath cholecalciferol (vitamin D3) 125 125 mcg PO QDAY 05/2507/19/24 History mcg (5,000 unit) tablet (Vitamin D3) escitalopram oxalate 20 mg tablet 20 mg PO QDAY 07/19/24 History (Lexapro) fluticasone propionate 50 1 spray intranasal BID 05/2507/19/24 History mcg/actuation nasal spray,suspension loratadine 10 mg capsule 10 mg PO QDAY 05/25/2307/19 History potassium chloride 15 mEq 15 meq PO BID 05/25/2307/19 History tablet,extended release(part/cryst) zolpidem 5 mg tablet (Ambien) 5 mg PO HS 05/25/2306/27 History docusate sodium 100 mg capsule 100 mg PO 1XD PRN Const ipation 09/25/23 07/19/24 History lactulose 10 gram/15 mL oral 15 - 30 ml PO PRN PRN Con stipation 09/25/23 07/19/24 History solution linaclotide 145 mcg capsule 145 mcg PO QAM 02/23/24 History (Linzess) levofloxacin 500 mg tablet 500 mg PO QDAY 04/18/24 History mupirocin 2 % topical ointment 1 applic topical DAILY 04/18/24 07/19/24 History nystatin 100,000 unit/gram topical 1 applic topical DA PRATIMA 04/18/24 07/19/24 History ointment polyethylene glycol 3350 17 4 g PO QDAY 07/19/2407/19 History gram/dose oral powder (Miralax) Allergies Allergy/AdvReac Type Severity Reaction Status Date / Time vancomycin Allergy Severe RASH/ITCHIN Verified 07/19/24 12:19 G Visit Medications Acetaminophen (Acetaminophen 325 Mg Tablet) 1,000 mg PO Q6H PRN PRN Reason: PAIN SCALE 1-3 (mild Stop: 01/16/25 22:35 Acetaminophen (Acetaminophen 325 Mg Tablet) 650 mg PO Q6H PRN PRN Reason: Fever >99.5 Stop: 01/16/25 22:35 Heparin Sodium (Porcine) (Heparin Sod Inj 5000 Unit/Ml Vial) 5,000 unit SC Q8HR CARLOS Stop: 01/01/25 05:59 Sodium Bicarbonate 88.23 meq/ (Dextrose) 588.23 mls @ 100 mls/hr IV .Q5H53M CARLOS Stop: 01/17/25 10:30 Meropenem 1,000 mg/ Sodium (Chloride) 50 mls @ 100 mls/hr IV Q12HR CARLOS Stop: 12/25/24 08:59 Sodium Bicarbonate 88.23 meq/ (Dextrose) 588.23 mls @ 100 mls/hr IV .Q5H53M CARLOS Stop: 12/18/24 10:30 Meropenem 1,000 mg/ Sodium (Chloride) 50 mls @ 100 mls/hr IV X1 ONE Stop: 12/17/24 23:14 Sodium Chloride (Ns) 1,000 mls @ 75 mls/hr IV .[id number] CARLOS Stop: 01/16/25 22:44 Ondansetron HCl (Ondansetron Inj 2 Mg/Ml Inj 2 Ml) 4 mg IVP Q6H PRN; Protocol PRN Reason: NAUSEA OR VOMITING Stop: 01/16/25 22:35 Pharmacy Consult (Vancomycin Pharmacy To Dose 1 Each Each) 1 each IV QDAY CARLOS Stop: 01/17/25 08:59 Sennosides (Senna Tablet) 1 tab PO QDAY CARLOS; Protocol Stop: 01/17/25 08:59 Assessment & Plan Plan 49-year-old female with past medical history as stated above who presented to the ED from her PCPs office due to abnormal labs. #JOSEPH on CKD #Metabolic acidosis likely in the setting of #Uremia #UTI #Hx of urostomy Patient went to PCP office found with abnormal labs including elevated creatinine and uremia UA shows UTI and previous cultures from chart review shows hx of ESBL Patient not encephalopathic is AAOx3 ED spoke to Nephrology for possible evaluation to initiate HD baseline Creatinine ~0.9-1.2 ? On vancomycin and meropenem ? Follow-up ABGs ? Possible initiation of hemodialysis ? Nephrology consulted, appreciate recs ? Bicarb drip ? IV fluids ? CT abdomen pelvis without contrast ? PTH ordered ? Phos ordered #spina bifida #History of pressure ulcers ? Wound care Health Maintenance: Disposition: Med telemetry Fluids: NS Feeding: Renal Thrombo prophylaxis: scds, in view of possible initiation of HD, will need catheter placement Gastric Ulcer prophylaxis: None CODE STATUS: Full code Case discussed with my attending Dr. Benedict Lamas MD PGY-1 Disclaimer: Despite multiple revisions, due to the dictation software being used, the document bellow may not be free of grammatical errors including phonetic/typographic errors. However, this does not deter from our commitment to providing health care in the patient's best interest in mind.
[2024-12-17 22:47] VITALS: BP 139/74; PULSE 91; RESP 18; TEMP 36.5; O2SAT 100
[2024-12-17 22:49] VITALS: PULSE 86; RESP 100; RESP 22
[2024-12-17] MEDS: Sodium Bicarb 8.4% 50ml Vial* 88.23 MEQ in DEXTROSE 5%-WATER 500 ML 100 MEQ IV (23:03)
[2024-12-17 23:09] LABS: Base Excess -20 (-3-3); HCO3 7 mEq/L (20-26); Inspired Oxygen, FIO2 21 %; O2 Saturation 99 % (91-98); PCO2 22 mmHg (32.0-48.0); PO2 109 mmHg (83-108)
[2024-12-17 23:12] LABS: pH, Arterial 7.13 (7.35-7.45)
[2024-12-17 23:13] LABS: Allen Test Performed/OK; Puncture Site Right Radial
[2024-12-17 23:17] LABS: Parathyroid Hormone Intact 95.3 pg/ml (18.5-88.0)
[2024-12-17 23:23] LABS: Phosphorous 6.7 mg/dL (2.4-5.1)
[2024-12-18] VITALS (10 sets, daily range): BP systolic 98–109; BP diastolic 59–79; PULSE 58–105; RESP 17–96; TEMP 36.3–36.7; O2SAT 95–99; BMI 50.1
[2024-12-18] MEDS: MEROPENEM INJ 1,000 MG in SODIUM CHLORIDE 0.9% (Popper) 50 ML 100 MG IV ×3 (00:14→21:08)
--- NOTE | 2024-12-18 00:31 | PC.NURSE ---
REPORT GIVEN TO ESPINOZA DICKSON AT [facility].
[2024-12-18] MEDS: SODIUM CHLORIDE 0.9% 1000 ML 1,000 ML 75 ML IV (00:54)
--- NOTE | 2024-12-18 01:02 | PRELIM_ITS ---
CT scan of the abdomen and pelvis without intravenous contrast (axial sections with sagittal and coronal reformats) December 17, 2024 at 2320 hours Clinical History: Rule out stones. Comparison: None available at the time of this report. Findings: The lung bases are clear. The pancreas, spleen, and adrenals are unremarkable on this noncontrast study. Mild irregular liver margins. Status postcholecystectomy. Nonobstructing bilateral kidney stones. Bilateral renal cystic lesions, limited evaluation of this noncontrast study. Right renal pelvis stone measuring 0.5 cm. Left renal pelvis stone measuring 1.5 cm. Moderate bilateral hydroureteronephrosis. Right ureteral stone measuring 0.8 cm. Left ureteral stone measuring 1.1 cm. Bilateral ureter wall thickening associated with peripheral fat stranding. No evidence of bowel obstruction. No evidence of appendicitis. There is no mesenteric or retroperitoneal adenopathy. S/p cystectomy with ileal conduit reconstruction. Impacted fecaloma in the rectum. There is no free fluid or free air. 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 Chronic subluxation of the right femoral head. Collection posterior to the vertebral body of L5 communicating with the spinal canal measuring 4.2 x 4.5 cm. Impression: 1. Bilateral ureter stones associated with hydroureteronephrosis. 2. Nonobstructing bilateral nephrolithiasis. 3. Bilateral renal pelvises stones. 4. 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 5. Possible bilateral ureteritis. 6. 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 7. Possible cirrhosis. 8. Impacted fecaloma in the rectum, consider disimpaction. Report Electronically Signed By: Evan Del Castillo 12/18/2024 1:02:07 AM [EST]
[2024-12-18] MEDS: Sodium Bicarb 8.4% 50ml Vial* 88.23 MEQ in DEXTROSE 5%-WATER 500 ML 100 MEQ IV ×2 (04:55→13:28)
[2024-12-18] MEDS: INSULIN HUM REGULAR 1 UNIT/0.01 ML (PER UNIT) 5 UNIT IV (05:25)
[2024-12-18] MEDS: SOD POLYSTYRENE SULFON SUSP 15 GM/60 ML BTL 60 GM PO (05:25)
[2024-12-18] MEDS: DEXTROSE 50%-WATER INJ 50 ML SYRINGE IVP (05:26)
[2024-12-18 05:55] LABS: Base Excess -17 (-3-3); HCO3 10 mEq/L (20-26); Inspired Oxygen, FIO2 21 %; O2 Saturation 98 % (91-98); PCO2 26 mmHg (32.0-48.0); PO2 99 mmHg (83-108)
[2024-12-18 05:59] LABS: Allen Test Performed/OK; Puncture Site Right Radial
[2024-12-18 06:01] LABS: pH, Arterial 7.18 (7.35-7.45)
[2024-12-18 06:05] LABS: Basophils % (Auto) 0 % (0-2.5); Eosinophils # (Auto) 0.1 Thou/mm3 (0.0-0.5); Eosinophils % (Auto) 3 % (0-10); Hemoglobin 10.2 g/dL (12.0-16.0); Immature Granulocytes % (Auto) 0 % (0-0); Immature Granulocytes Auto 0.02 Thou/mm3 (0.00-0.00); Lymphocytes # (Auto) 0.8 Thou/mm3 (1.0-4.8); Lymphocytes % (Auto) 17 % (10-50); Mean Corpuscular HGB Conc 31.9 g/dl (31.0-37.0); Mean Corpuscular Hemoglobin 31.5 pg (25.0-35.0); Mean Corpuscular Volume 99 fL (80-100); Monocytes # (Auto) 0.1 Thou/mm3 (0.0-0.8); Monocytes % (Auto) 3 % (0-12); Neutrophils # (Auto) 3.6 Thou/mm3 (1.8-7.7); Neutrophils % (Auto) 77 % (37-80); Nucleated Red Blood Cell % 0 /100 WBC (0); Platelet Count 359 Thou/mm3 (140-440); RDW Standard Deviation 56.1 fL (36.4-46.3); Red Blood Count 3.24 Miln/mm3 (4.00-5.20); White Blood Count 4.7 Thou/mm3 (3.6-11.0)
[2024-12-18 07:32] LABS: Alanine Aminotransferase < 7 U/L (10-49); Albumin, Serum 3.6 gm/dL (3.5-5.0); Alkaline Phosphatase 110 U/L (46-116); Anion Gap 14 (7-16); Aspartate Amino Transferase < 8 U/L (0-34); BUN/Creatinine Ratio 27 Ratio (12-20); Bilirubin,Total 0.2 mg/dL (0.3-1.2); Calcium (Corrected) 9.3 mg/dL (8.5-10.1); Chloride 112 mMol/L (98-107); Estimated Creatinine Clearance 19.8 mL/min (>60); Globulin 3.5 gm/dL (2.3-3.5); Glucose 169 mg/dL (74-106); Osmolality,Calculated 313 (275-295); Phosphorous 6.5 mg/dL (2.4-5.1); Potassium 3.7 mMol/L (3.4-5.1); Sodium 138 mMol/L (136-145); Thyroid Stimulating Hormone 3.21 uIU/mL (0.55-4.78); Total Protein 7.1 gm/dL (5.7-8.2); eGFR 13 See Note
[2024-12-18 07:35] LABS: Blood Urea Nitrogen 108 mg/dL (9-23)
[2024-12-18 07:56] LABS: INR 1.1 (0.9-1.3); Partial Thromboplastin Time 30.6 Seconds (22.0-36.0); Prothrombin Time 12.2 Seconds (9.0-12.2)
[2024-12-18 08:38] LABS: Hepatitis A Antibody IgM Non Reactive (Non React); Hepatitis B Core Antibody IgM Non Reactive (Non React); Hepatitis B Surface Antigen Non Reactive (Non React); Hepatitis C Antibody Non Reactive (Non React)
[2024-12-18 08:48] LABS: Base Excess -14 (-3-3); HCO3 12 mEq/L (20-26); Inspired Oxygen, FIO2 21 %; O2 Saturation 98 % (91-98); PCO2 27 mmHg (32.0-48.0); PO2 89 mmHg (83-108); pH, Arterial 7.24 (7.35-7.45)
[2024-12-18 08:55] LABS: Allen Test Performed/OK; Puncture Site Left Radial
--- NOTE | 2024-12-18 09:24 | ESCONSULT_ITS ---
HPI Data of Consult Consult date: 12/18/24 Requesting Physician: Shelbie Sellers DO Admitting Provider: Cesar Mcmullen MD Attending Provider: Shelbie Sellers DO Primary Care Provider: STACIA Merrill Consult Narrative Reason for consult: Acute renal failure, metabolic acidosis History of present illness: Mr. 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 Patient has a urostomy in place(under Dr. Sam), the patient was sent to the emergency room from her primary care physician office due to abnormal labs and kidney function. Patient reported having abdominal pain with bilateral lower abdominal quadrants for 3 to 4 days, also reported 2 episodes of nonbloody diarrhea. Initially considered hemodialysis due to acute renal failure, but patient's urine output started to improve, recommended bicarb and repeating blood gas and renal ultrasound to evaluate for hydronephrosis. Nephrology was consulted for management of severe metabolic acidosis and acute kidney injury. In the ER initial vitals showed blood pressure 109/74, pulse 104/min, respiratory rate 18/min, Tmax 90 8.8F, saturating 96% on room air. Initial labs in the ER showed CBC shows mild anemia, CMP shows severe high anion gap metabolic acidosis and acute kidney injury, sodium 135, potassium 5.5 chloride 112, carbon oxide less than 10, anion gap 13, BUN 108, creatinine 3.9, EGFR 13, glucose 93, osmolarity 304, lactic acid 0.9, phosphorus 6.7, PTH 35.3. Urinalysis shows 3+ protein, 2+ blood, urine WBC 951 2+ bacteria initial ABG showed pH 7.13, pCO2 22 [id number], bicarb 7, SaO2 99% on room air. Initial CT abdomen pelvis showed bilateral renal calculi with moderate bilateral hydronephrosis secondary to ureteral calculi, noted 10 mm left ureteral calculus 7 mm right ureteral calculus, 15 mm left renal pelvic stone and 20 mm right kidney stone. Absent urinary bladder. Extensive soft tissue infection posterior pelvis extending to the anus with marked thickening rectal involvement. cc:: cc: Shelbie Sellers DO Review of Systems Review of Systems Systems Reviewed: All systems reviewed, normal except as documented Past Medical History Past Medical History NEUROLOGIC: Positive Neurological Disorders and Spina Bifida; Negative Seizures CARDIAC: Positive Cardiac Disorders (irregular heart rate), Cardiac Arrhythmia (yrs ago), Angina, Peripheral Vascular Disease and Cellulitis (past); Negative Congestive Heart Failure RESPIRATORY: Negative Chronic Obstructive Pulmonary Disease (COPD) or Asthma GASTROINTESTINAL: Positive Gastrointestinal Disorders, Obstructive Bowel, Gastroesophageal Reflux Disease and Obesity; Negative Hepatitis or Gall Bladder Disease GENITOURINARY: Positive Genitourinary Disorders and Kidney Stones; Negative Renal Disease REPRODUCTIVE: Negative Previous Pregnancies MUSCULOSKELETAL: Positive Musculoskeletal Disorders (open wound on buttocks) and Osteomyelitis (Right toes in the past) ENDOCRINE: Negative Endocrine Disorders, Diabetes Mellitus Type 1 or Diabetes Mellitus Type 2 HEMATOLOGIC: Positive Blood Disorders and Anemia; Negative Sickle Cell Disease PSYCHO/SOCIAL: Positive Anxiety OTHER HISTORY: Positive Hospitalization (surgery), Autoimmune Disease, MRSA (RIGHT HEEL 2008), Chicken Pox and Measles; Negative Shingles, Falls, Blood Transfusions, Blood Transfusion Reaction, Anesthesia Reactions, Chemotherapy, Radiation Therapy, Human Immunodeficiency Virus (HIV), Mumps, Rubella ([place]ian Measles), Pertussis, Clostridium Difficile or Cancer Family History FAMILY HISTORY: Positive Family Surgery; Negative Family Psychiatric Problems, Family Respiratory Disorders, Family Cardiac Disorders, Family Gastrointestinal Problems, Family Cancer or Family Anesthesia Reaction Surgical History SURGICAL: Positive Abdominal Surgery, Nephrectomy (urostomy at 15 yrs old, relocated), Amputation (right toes), Brain Shunt, Lumpectomy (right breast) and Hysterectomy; Negative Oral Surgery Social History SMOKING STATUS: Never smoker SUBSTANCE USE: does not use Exam Vital Signs Temp Pulse Resp BP Pulse Ox O2 Del Method 97.6 F 97 20 98/69 96 Room Air 12/18/24 08:00 12/18/24 08:24 12/18/24 08:00 12/18/24 08:00 12/18/24 08:00 12/18/24 08:00 Narrative Exam Physical Exam GENERAL: NAD, AAOx3 HEENT: Moist mucosa. Eyes open, symmetrical, & clear CARDIO: Heart RRR, no obvious murmurs PULM: No noted coughing/dyspnea CTA B/L, no R/W/R GI: Abdomen soft, nondistended, no pain on palpation. BSx4, surgical scars noted, urostomy bag noted SKIN/MSK/EXT: Bilateral lower extremity edema, no pain on palpation. Pedal pulses present B/L Results Labs 12/18/24 05:43 12/18/24 15:51 Labs: Short CBC 12/17/24 12/18/24 Range/Units 15:53 05:43 WBC 6.2 4.7 (3.6-11.0) Thou/mm3 Hgb 11.0 L 10.2 L (12.0-16.0) g/dL Hct 34.3 L 32.0 L (36.0-46.0) % Plt Count 428 359 D (140-440) Thou/mm3 BMP 12/17/24 12/18/24 15:53 06:55 Sodium 135 L 138 Potassium 5.5 H 3.7 D Chloride 112 H 112 H Carbon Dioxide < 10.0 L* 12.0 L* BUN 108 H* 108 H* Creatinine 3.9 H 4.0 H Glucose 93 169 H D Calcium 9.3 9.0 Liver Function 12/17/24 12/18/24 Range/Units 15:53 06:55 Total Bilirubin < 0.2 L 0.2 L (0.3-1.2) mg/dL AST < 8 < 8 (0-34) U/L ALT 7 L < 7 L (10-49) U/L Alkaline Phosphatase 117 H 110 (46-116) U/L Albumin 3.8 3.6 (3.5-5.0) gm/dL Urine 12/17/24 Range/Units 19:15 Urine Color [place] A (Lt Yel-Yel) Urine Clarity Turbid A (Clear/Hazy) Urine pH 7.0 (5.0-7.0) Ur Specific [place] 1.016 (1.001-1.035) Urine Protein 3+ A (Neg - Trace) Urine Glucose (UA) Negative (Negative) ABG Interpretation ABG results: 12/17/24 12/18/24 12/18/24 23:04 05:49 08:35 ABG pH 7.13 L* 7.18 L* 7.24 L ABG pCO2 22 L 26 L 27 L ABG pO2 109 H 99 89 ABG HCO3 7 L* 10 L 12 L ABG O2 Saturation 99 H 98 98 ABG Base Excess -20 L -17 L -14 L Quality Measures Quality Measures none Medications Home Medications and Allergies Home Medications ?Medication ?Instructions ?Recorded ?Confirmed ?Type albuterol sulfate 90 mcg/actuation 2 puff inhalation Q 4HR PRN 05/25/23 12/18/24 History aerosol inhaler Shortness Of Breath cholecalciferol (vitamin D3) 125 125 mcg PO QDAY 05/2512/18/24 History mcg (5,000 unit) tablet (Vitamin D3) escitalopram oxalate 20 mg tablet 20 mg PO QDAY 12/18/24 History (Lexapro) fluticasone propionate 50 1 spray intranasal BID 05/2512/18/24 History mcg/actuation nasal spray,suspension loratadine 10 mg capsule 10 mg PO QDAY 05/25/2312/18 History potassium chloride 15 mEq 15 meq PO BID 05/25/2312/18 History tablet,extended release(part/cryst) docusate sodium 100 mg capsule 100 mg PO 1XD PRN Const ipation 09/25/23 12/18/24 History lactulose 10 gram/15 mL oral 15 - 30 ml PO PRN PRN Con stipation 09/25/23 12/18/24 History solution linaclotide 145 mcg capsule 145 mcg PO QAM 02/23/24 History (Linzess) mupirocin 2 % topical ointment 1 applic topical DAILY 04/18/24 12/18/24 History polyethylene glycol 3350 17 4 g PO QDAY 07/19/2412/18 History gram/dose oral powder (Miralax) zolpidem 10 mg tablet 10 mg PO QDAY 12/18/2412/18 History Allergies Allergy/AdvReac Type Severity Reaction Status Date / Time vancomycin Allergy Severe RASH/ITCHIN Verified 07/19/24 12:19 G Visit Medications Acetaminophen (Acetaminophen 500 Mg Tablet) 1,000 mg PO Q6H PRN PRN Reason: PAIN SCALE 1-3 (mild Stop: 01/16/25 22:43 Acetaminophen (Acetaminophen 325 Mg Tablet) 650 mg PO Q6H PRN PRN Reason: Fever >99.5 Stop: 01/16/25 22:35 Citric Acid/Sodium Citrate (Citric Acid/Sodium Citr 15 Ml Udc (Bicitra)) 30 ml PO BID CARLOS Stop: 01/17/25 08:59 Glucagon (Glucagon Inj 1 Mg Vial) 1 mg IM Q15MIN PRN PRN Reason: BG <70, and no IV access Sodium Bicarbonate 88.23 meq/ (Dextrose) 588.23 mls @ 100 mls/hr IV .Q5H53M [facility] Stop: 01/17/25 10:30 Meropenem 1,000 mg/ Sodium (Chloride) 50 mls @ 100 mls/hr IV Q12HR [facility] Stop: 12/25/24 08:59 Sodium Bicarbonate 88.23 meq/ (Dextrose) 588.23 mls @ 100 mls/hr IV .Q5H53M [facility] Last Admin: 12/18/24 04:55 Dose: 100 mls/hr Sodium Chloride (Ns) 1,000 mls @ 125 mls/hr IV .Q8H [facility] Stop: 01/16/25 22:44 Ondansetron HCl (Ondansetron Inj 2 Mg/Ml Inj 2 Ml) 4 mg IVP Q6H PRN; Protocol PRN Reason: NAUSEA OR VOMITING Stop: 01/16/25 22:35 Pharmacy Consult (Vancomycin Pharmacy To Dose 1 Each Each) 1 each IV QDAY PRN PRN Reason: PROTOCOL Stop: 01/17/25 06:52 Sennosides (Senna Tablet) 1 tab PO QDAY [facility]; Protocol Stop: 01/17/25 08:59 Last Admin: 12/18/24 09:18 Dose: Not Given Discontinued Medications Dextrose (Dextrose 50%-Water Inj 50 Ml Syringe) 25 ml IV Q15MIN PRN PRN Reason: BG 50-70 responsive npo pt Stop: 01/17/25 04:42 Dextrose (Dextrose 50%-Water Inj 50 Ml Syringe) 50 ml IV Q15MIN PRN PRN Reason: BG <50 OR BG <70 & pt unresponsive Stop: 01/17/25 04:42 Dextrose (Dextrose 50%-Water Inj 50 Ml Syringe) 50 ml IVP X1 ONE Stop: 12/18/24 05:09 Last Admin: 12/18/24 05:26 Dose: 50 ml Heparin Sodium (Porcine) (Heparin Sod Inj 5000 Unit/Ml Vial) 5,000 unit SC Q8HR [facility] Stop: 01/01/25 05:59 Meropenem 1,000 mg/ Sodium (Chloride) 50 mls @ 100 mls/hr IV X1 ONE Stop: 12/17/24 23:14 Last Admin: 12/18/24 00:14 Dose: 100 mls/hr Sodium Chloride (Ns) 1,000 mls @ 75 mls/hr IV .[id number] CARLOS Stop: 01/16/25 22:44 Last Infusion: 12/18/24 05:09 Dose: 125 mls/hr Dextrose (D10w 1000 Ml) 1,000 mls @ 100 mls/hr IV .Q10H [facility] Stop: 12/18/24 14:44 Last Admin: 12/18/24 09:08 Dose: Not Given Insulin Human Regular (Insulin Hum Regular 1 Unit/0.01 Ml (Per Unit)) 5 unit IV X1 ONE Stop: 12/18/24 04:44 Last Admin: 12/18/24 05:25 Dose: 5 unit Pharmacy Consult (Vancomycin Pharmacy To Dose 1 Each Each) 1 each IV QDAY PRN PRN Reason: PROTOCOL Stop: 01/17/25 08:59 Sodium Bicarbonate (Sodium Bicarb Inj 8.4% Syr 50 Ml Syringe) 50 ml IV X1 ONE Stop: 12/18/24 08:19 Sodium Bicarbonate (Sodium Bicarb Inj 8.4% Syr 50 Ml Syringe) 50 ml IV X1 ONE Stop: 12/18/24 08:20 Sodium Polystyrene Sulfonate (Sod Polystyrene Sulfon Susp 15 Gm/60 Ml Btl) 60 gm PO X1 ONE Stop: 12/18/24 04:44 Last Admin: 12/18/24 05:25 Dose: 60 gm Tuberculin PPD (Tuberculin Ppd Inj 5 Unit/0.1 Ml Dose) 5 unit ID X1 ONE Stop: 12/18/24 07:18 Assessment & Plan Problem List (1) JOSEPH (acute kidney injury): Status: Acute Assessment and plan: Noted to have acute kidney injury, possible etiology prerenal versus postrenal. Patient does have imaging findings consistent with obstructive nephropathy given bilateral ureteric stones and bilateral moderate hydronephrosis. Also has fairly large stone burden in bilateral renal pelvises. Patient has an ileal pouch with urostomy in place. Absent urinary bladder. Plan due to severe metabolic acidosis and acute kidney injury, pH less than 7.2, considered hemodialysis, but urine output gradually improved. Currently urine output 800 mL over last 24 hours. ? Will monitor closely for worsening renal function, will consider hemodialysis if no improvement with bicarb. ? IV bicarb pushes x 2, now on bicarb drip. ? Repeat ABG in the afternoon ? Repeat ultrasound renal, to evaluate for any improvement in hydronephrosis given ureteric stones. ? Consider urology consult to Dr. Miner due to bilateral ureteric stones, if any intervention is needed. (2) Obstructive nephropathy: Status: Acute Assessment and plan: Initial CT abdomen pelvis showed bilateral renal calculi with moderate bilateral hydronephrosis secondary to ureteral calculi, noted 10 mm left ureteral calculus 7 mm right ureteral calculus, 15 mm left renal pelvic stone and 20 mm right kidney stone. Absent urinary bladder. ? Consider urology consult to Dr. Miner due to bilateral ureteric stones, if any intervention is needed. (3) High anion gap metabolic acidosis: Status: Acute Assessment and plan: High anion gap metabolic acidosis with normal anion gap metabolic acidosis and appropriate respiratory compensation, lactic acid normal, likely uremia due to high anion gap metabolic acidosis, though patient could also have a component of renal tubular acidosis given extensive history of kidney stones//bicarbonate losses through urostomy.. ? Will order urine sodium, urine potassium, urine creatinine, Urine chloride. ? Repeat ABG in the afternoon. ? Continue bicarb drip. (4) Urinary tract infection: Status: Acute Assessment and plan: Urinalysis positive for UTI. Initially started on meropenem, ? 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 Doubt functioning tumor with normal blood pressure Plan Plan of care discussed with Dr. Miguel Weiner PGY2 Attending Provider Attestation/Addendum Patient seen and examined with resident physician Dr. Weiner. Note reviewed, agree with findings and recommendations. Renal consultation requested for acute renal failure, metabolic acidosis. Initial thought was to initiate dialysis-this morning after giving fluids patient started to improve clinically and with good urine output that I had to hold dialysis. Spoke to Dr. Sellers at bedside- continue with bicarbonate drip and bicarb pushes to improve metabolic acidosis. Added Bicitra. Will repeat a renal ultrasound this afternoon to look for recurrent hydronephrosis and the need for urology consultation due to his acute renal calculi. Thank you Dr. Sellers for allowing me to participate in the care of Ms. Dietz
[2024-12-18] MEDS: Sodium Bicarb Inj 8.4% SYR 50 ML SYRINGE IV ×2 (09:28)
[2024-12-18] MEDS: CITRIC ACID/SODIUM CITR 15 ML UDC (BICITRA) 30 ML PO ×2 (09:28→21:08)
[2024-12-18] MEDS: TUBERCULIN PPD INJ 5 UNIT/0.1 ML DOSE ID (10:02)
--- NOTE | 2024-12-18 12:22 | PC.NURSE ---
Dr. Son aware that sodium bicarb drip order was discontinued, states i will resume this order.
--- NOTE | 2024-12-18 15:24 | ESPR_ITS ---
<Statement entered by Freedom Donovan MD - 12/19/24 07:12> I discussed with and supervised the senior internet sales consultant physician involved in the care of this patient. Patient assessment and plan was discussed with entire medicine team, including my attending. I agree with the assessment and plan as documented by senior internet sales consultant doctor. Patient care was discussed with my attending physician Dr. Verito Donovan, PGY-2 Documentation for date of: 12/18/24 Subjective Subjective Interval history: Patient is seen and examined at bedside Admitted overnight because of acute on chronic kidney disease with severe metabolic acidosis Repeat ABG done this morning showed significant improvement in pH, 7.24 with bicarb 12 Patient was given 2 pushes of IV bicarb and continued bicarb drip Mailing Manager, Dr. Rivera is consulted and she recommended to continue bicarb drip Repeat renal panel and ABG ordered at 4 PM. Renal ultrasound is ordered, will follow-up with the results Exam Vital Signs Temp Pulse Resp BP Pulse Ox O2 Del Method 97.8 F 100 19 109/64 97 Room Air 12/18/24 12:00 12/18/24 12:00 12/18/24 12:00 12/18/24 12:00 12/18/24 12:12/18/24 12:00 Narrative Exam General: Awake. HEENT: Normocephalic, atraumatic, mucous membranes moist. Heart: Regular rate and rhythm, no murmurs. Lungs: Clear to auscultation with no wheezing or crackles. Abdomen: Soft, nondistended, nontender, positive bowel sounds. ?No guarding or rebound tenderness. Neurologic: Alert and oriented x3, no gross neurological deficit, and patient able to move all 4 extremities. Extremities: No edema. Noted deformities in lower extremities. Skin: No rash or ecchymoses. Decubitus ulcer noted Objective Labs 12/19/24 05:19 12/19/24 05:19 Labs: Laboratory Results - last 24 hr 12/17/24 12/17/24 12/17/24 15:53 19:15 23:04 WBC 6.2 RBC 3.61 L Hgb 11.0 L Hct 34.3 L MCV 95 MCH 30.5 MCHC 32.1 RDW Std Deviation 54.3 H Plt Count 428 Neut % (Auto) 65 Lymph % (Auto) 20 [place] % (Auto) 12 Eos % (Auto) 2 Baso % (Auto) 0 Neut # (Auto) 4.1 Lymph # (Auto) 1.3 [place] # (Auto) 0.8 Eos # (Auto) 0.1 Baso # (Auto) 0.0 Immature Gran # (Auto) 0.03 H Absolute Nucleated RBC 0.00 Immature Gran % 1 H Nucleated RBC % 0 PT INR APTT Puncture Site Right Radial ABG pH 7.13 L* ABG pCO2 22 L ABG pO2 109 H ABG HCO3 7 L* ABG O2 Saturation 99 H ABG Base Excess -20 L FiO2 21 Sodium 135 L Potassium 5.5 H Chloride 112 H Carbon Dioxide < 10.0 L* Anion Gap 13 BUN 108 H* Creatinine 3.9 H Estim Creat Clear Calc 21.0 L eGFR 13 L* BUN/Creatinine Ratio 28 H Glucose 93 Calculated Osmolality 304 H Lactic Acid 0.9 Calcium 9.3 Corrected Calcium 9.5 Phosphorus 6.7 H Magnesium Total Bilirubin < 0.2 L AST < 8 ALT 7 L Alkaline Phosphatase 117 H Total Protein 7.6 Albumin 3.8 Globulin 3.8 H Albumin/Globulin Ratio 1.0 L Procalcitonin 0.27 TSH PTH Intact 95.3 H Ur Collection Type Clean Catch Urine Color Bradley A Urine Clarity Turbid A Urine pH 7.0 Ur Specific [place] 1.016 Urine Protein 3+ A Urine Glucose (UA) Negative Urine Ketones Negative Urine Blood 2+ A Urine Nitrite Negative Urine Bilirubin Negative Urine Urobilinogen (Auto) Negative Ur Leukocyte Esterase Positive Urine RBC 14 H Urine WBC 951 H Ur Squamous Epith Cells 0 Amorphous Crystals Present A Urine Bacteria 2+ A Ur Culture Indicated? Yes Urine HCG, Qual Negative Hepatitis A IgM Ab Hep Bs Antigen Hep B Core IgM Ab Hepatitis C Antibody 12/18/24 12/18/24 12/18/24 05:43 05:49 06:55 WBC 4.7 RBC 3.24 L Hgb 10.2 L Hct 32.0 L MCV 99 MCH 31.5 MCHC 31.9 RDW Std Deviation 56.1 H Plt Count 359 D Neut % (Auto) 77 Lymph % (Auto) 17 [place] % (Auto) 3 Eos % (Auto) 3 Baso % (Auto) 0 Neut # (Auto) 3.6 Lymph # (Auto) 0.8 L [place] # (Auto) 0.1 Eos # (Auto) 0.1 Baso # (Auto) 0.0 Immature Gran # (Auto) 0.02 H Absolute Nucleated RBC 0.00 Immature Gran % 0 Nucleated RBC % 0 PT 12.2 INR 1.1 APTT 30.6 Puncture Site Right Radial ABG pH 7.18 L* ABG pCO2 26 L ABG pO2 99 ABG HCO3 10 L ABG O2 Saturation 98 ABG Base Excess -17 L FiO2 21 Sodium 138 Potassium 3.7 D Chloride 112 H Carbon Dioxide 12.0 L* Anion Gap 14 BUN 108 H* Creatinine 4.0 H Estim Creat Clear Calc 19.8 L eGFR 13 L* BUN/Creatinine Ratio 27 H Glucose 169 H D Calculated Osmolality 313 H Lactic Acid Calcium 9.0 Corrected Calcium 9.3 Phosphorus 6.5 H Magnesium 2.0 Total Bilirubin 0.2 L AST < 8 ALT < 7 L Alkaline Phosphatase 110 Total Protein 7.1 Albumin 3.6 Globulin 3.5 Albumin/Globulin Ratio 1.0 L Procalcitonin TSH 3.21 PTH Intact Ur Collection Type Urine Color Urine Clarity Urine pH Ur Specific [place] Urine Protein Urine Glucose (UA) Urine Ketones Urine Blood Urine Nitrite Urine Bilirubin Urine Urobilinogen (Auto) Ur Leukocyte Esterase Urine RBC Urine WBC Ur Squamous Epith Cells Amorphous Crystals Urine Bacteria Ur Culture Indicated? Urine HCG, Qual Hepatitis A IgM Ab Non Reactive Hep Bs Antigen Non Reactive Hep B Core IgM Ab Non Reactive Hepatitis C Antibody Non Reactive 12/18/24 08:35 WBC RBC Hgb Hct MCV MCH MCHC RDW Std Deviation Plt Count Neut % (Auto) Lymph % (Auto) [place] % (Auto) Eos % (Auto) Baso % (Auto) Neut # (Auto) Lymph # (Auto) [place] # (Auto) Eos # (Auto) Baso # (Auto) Immature Gran # (Auto) Absolute Nucleated RBC Immature Gran % Nucleated RBC % PT INR APTT Puncture Site Left Radial ABG pH 7.24 L ABG pCO2 27 L ABG pO2 89 ABG HCO3 12 L ABG O2 Saturation 98 ABG Base Excess -14 L FiO2 21 Sodium Potassium Chloride Carbon Dioxide Anion Gap BUN Creatinine Estim Creat Clear Calc eGFR BUN/Creatinine Ratio Glucose Calculated Osmolality Lactic Acid Calcium Corrected Calcium Phosphorus Magnesium Total Bilirubin AST ALT Alkaline Phosphatase Total Protein Albumin Globulin Albumin/Globulin Ratio Procalcitonin TSH PTH Intact Ur Collection Type Urine Color Urine Clarity Urine pH Ur Specific [place] Urine Protein Urine Glucose (UA) Urine Ketones Urine Blood Urine Nitrite Urine Bilirubin Urine Urobilinogen (Auto) Ur Leukocyte Esterase Urine RBC Urine WBC Ur Squamous Epith Cells Amorphous Crystals Urine Bacteria Ur Culture Indicated? Urine HCG, Qual Hepatitis A IgM Ab Hep Bs Antigen Hep B Core IgM Ab Hepatitis C Antibody ABG Interpretation ABG results: 12/17/24 12/18/24 12/18/24 23:04 05:49 08:35 ABG pH 7.13 L* 7.18 L* 7.24 L ABG pCO2 22 L 26 L 27 L ABG pO2 109 H 99 89 ABG HCO3 7 L* 10 L 12 L ABG O2 Saturation 99 H 98 98 ABG Base Excess -20 L -17 L -14 L Quality Measures Quality Measures none Assessment & Plan Assessment Current Active Medications: Generic Name Dose Route Start Last Admin Trade Name Freq PRN Reason Stop Dose Admin Acetaminophen 1,000 mg 12/17/24 22:44 Acetaminophen 500 Mg Tablet PO 01/16/25 22:43 Q6H PRN PAIN SCALE 1-3 (mild Acetaminophen 650 mg 12/17/24 22:36 Acetaminophen 325 Mg Tablet PO 01/16/25 22:35 Q6H PRN Fever >99.5 Balsam Philippe/Dewitt Oil 0 gm 12/18/24 21:00 Balsam [place] Oil (Venelex) 60 Gm Tube TOP 01/17/25 20:59 BID CARLOS Citric Acid/Sodium Citrate 30 ml 12/18/24 09:00 12/18/24 09:28 Citric Acid/Sodium Citr 15 Ml Udc (Bicitra) PO 01/17/25 08:59 30 ml BID CARLOS Administration Glucagon 1 mg 12/18/24 04:43 Glucagon Inj 1 Mg Vial IM Q15MIN PRN BG <70, and no IV access Meropenem 1,000 mg/ Sodium 50 mls @ 100 mls/hr 12/18/24 09:00 12/18/24 09:27 Chloride IV 12/25/24 08:59 100 mls/hr Q12HR CARLOS Administration Sodium Bicarbonate 88.23 meq/ 588.23 mls @ 100 mls/hr 12/18/24 12:49 12/18/24 13:28 Dextrose IV 01/17/25 12:48 100 mls/hr .Q5H53M CARLOS Administration Ondansetron HCl 4 mg 12/17/24 22:36 Ondansetron Inj 2 Mg/Ml Inj 2 Ml IVP 01/16/25 22:35 Q6H PRN NAUSEA OR VOMITING Protocol Sennosides 1 tab 12/18/24 09:00 12/18/24 09:18 Senna Tablet PO 01/17/25 08:59 Not Given QDAY CARLOS Protocol Plan 49-year-old female with past medical history as stated above who presented to the ED from her PCPs office due to abnormal labs and admitted for JOSEPH, likely prerenal in the setting of vomitings and diarrhea. # Uremia and metabolic acidosis likely in the setting of # Acute renal failure #CKD # UTI # Hx of urostomy Patient went to PCP office found with abnormal labs including elevated creatinine and uremia UA shows UTI and previous cultures from chart review shows hx of ESBL Patient not encephalopathic is AAOx3 Baseline Creatinine ~0.9-1.2 PTH is mildly elevated, 95.3 Plan ? On Meropenem (12/18 - ? Will follow-up with ABG at 4 pm ? Nephrology consulted, recommended to give 2 bicarb pushes and continue bicarb drip - Ordered renal usd, will follow up - Repeat renal panel at 4 pm - Will avoid nephrotoxic medications and renally dose medications - Consulted urologist, Dr. Sam and will appreciate his recommendations #spina bifida # Paraparesis and chronically bed ridden #History of pressure ulcers ? Wound care Health Maintenance: Disposition: Telemetry Fluids: NS Feeding: Renal Thrombo prophylaxis: scd Gastric Ulcer prophylaxis: None CODE STATUS: Full code Patient plan of care was discussed with the attending physician, Dr. Sellers and senior resident Dr. Venus Son, PGY1 Attending Provider Attestation/Addendum Karen, Shelbie Sellers, DO, attest that I was physically present for the nicole portions of the service and evaluated the patient with the resident and I reviewed and discussed the case with the resident and agree with the resident's findings and plans of care as documented above Patient seen and evaluated this a.m. Caregiver at bedside. Per caregiver, patient was producing less urine and appeared much more lethargic than past few days. Patient was found to be in acute renal failure on presentation with bicarb less than 10 and a pH of 7.13 on presentation. Patient was placed on bicarb drip with some improvement of her metabolic acidosis. Case was discussed with nephrology at bedside and recommend starting patient on Bicitra with an additional 2 A of bicarb IV push with bicarb drip. Will continue to follow-up with ABG and renal panel in the afternoon. No need for dialysis at this time as patient is noted to have a significant amount of urine production from her ileostomy. Patient does have some nephrolithiasis and is well-known to urology. Case discussed with urology who will see patient tomorrow. Urine appears dark in color. Will start on meropenem due to history of ESBL and recurrent UTI. Patient does have a wound on her posterior pelvis is noted on abdomen and pelvis CT. Will cover patient with doxycycline and addition to the meropenem. Will consult wound care. Picture was reviewed in chart does not appear to have any breaks in skin, but appears to be erythematous. Patient was referred to the wound care center for her wound. Patient is otherwise alert and oriented x 3. She is much less lethargic at this time. She denies any shortness of breath, fevers, chills, chest pain, abdominal pain, nausea or vomiting. Caregiver at bedside states that the patient is closer to her baseline at this time.
--- NOTE | 2024-12-18 15:25 | XR_ITS ---
Examination: Retroperitoneal ultrasound, complete Technique: Multiple high resolution grayscale images of the retroperitoneum obtained, including kidneys and bladder. Exam date and time:December 18, 2024 1539 hours INDICATIONS: Acute renal insufficiency on laboratory examination this week FINDINGS: Right kidney 11.5 cm cortex 1.7 cm 21 mm upper pole calculus, 10 mm upper pole calculus Mild to moderate right hydronephrosis Left kidney obscured by bowel gas Bladder obscured by bowel gas IMPRESSION: Limited study Right renal calculi Mild to moderate right hydronephrosis
--- NOTE | 2024-12-18 15:47 | PC.SS ---
Patient is alert/oriented. Patient was able to verify demographics. Patient states she resides with her mother. She has carerproviders that come in to work with her through [employer] [facility] providing agencies. Patient's careproviders work from 8-4pm. [facility]. Patient makes all her own healthcare decisions and handles her own finances. Patient has a hospital bed, electric wheelchair, angel lift. Patient takes [facility]. Patient follows with wound care center o/p once a week for sacral wound. Patient states her mother is her alt medical decision maker. D/c plan: return home. PCP: [facility] with Dr. Toro. Last appt. was a week ago. d/c plan: home alt medical decision maker: mother, jose r Dietz,
[2024-12-18 16:22] LABS: Base Excess -5 (-3-3); HCO3 19 mEq/L (20-26); Inspired Oxygen, FIO2 21 %; O2 Saturation 98 % (91-98); PCO2 31 mmHg (32.0-48.0); PO2 93 mmHg (83-108); pH, Arterial 7.39 (7.35-7.45)
[2024-12-18 16:24] LABS: Allen Test Performed/OK; Puncture Site Left Radial
[2024-12-18 16:59] LABS: Albumin, Serum 2.9 gm/dL (3.5-5.0); Anion Gap 15 (7-16); BUN/Creatinine Ratio 30 Ratio (12-20); Calcium 7.7 mg/dL (8.3-10.6); Calcium (Corrected) 8.6 mg/dL (8.5-10.1); Carbon Dioxide 20.2 mMol/L (20.0-31.0); Chloride 110 mMol/L (98-107); Creatinine (Component) 3.6 mg/dL (0.6-1.3); Glucose 172 mg/dL (74-106); Osmolality,Calculated 326 (275-295); Sodium 145 mMol/L (136-145); eGFR 15 See Note
[2024-12-18 17:02] LABS: Blood Urea Nitrogen 108 mg/dL (9-23); Potassium 2.5 mMol/L (3.4-5.1)
--- NOTE | 2024-12-18 17:52 | PC.NURSE ---
Talked to Dr. Benson about orders for pt. regarding potassium 2.5. Denies additional potassium draw to confirm amount. orders to continue with orders from Dr. Son
[2024-12-18] MEDS: POTASSIUM CHLORIDE 20 mEq TABCR 40 MEQ PO (17:53)
[2024-12-18] MEDS: POT CHL ADDITIVE 40 MEQ in RINGERS LACTATED 1000 ML 1,000 ML 125 MEQ IV (18:12)
[2024-12-18 18:51] LABS: Calcium, Random Urine 6 mg/dL (2-18); Chloride,Urine Random 50.7 mMol/L (55.0-125.0); Potassium,Urine Random 25 mMol/L (12-62); Sodium,Urine Random 84.8 mMol/L (20.0-110.0)
[2024-12-18] MEDS: BALSAM PERU/CASTOR OIL (Venelex) 60 GM TUBE TOP (21:08)
[2024-12-18] MEDS: DOXYCYCLINE 100 MG TABLET PO (21:08)
[2024-12-19] VITALS (12 sets, daily range): BP systolic 93–114; BP diastolic 52–66; PULSE 68–102; RESP 17–96; TEMP 36.1–36.3; O2SAT 94–97
[2024-12-19] MEDS: POT CHL ADDITIVE 40 MEQ in RINGERS LACTATED 1000 ML 1,000 ML 125 MEQ IV (02:15)
[2024-12-19 06:00] LABS: Basophils % (Auto) 0 % (0-2.5); Eosinophils # (Auto) 0.2 Thou/mm3 (0.0-0.5); Eosinophils % (Auto) 4 % (0-10); Hematocrit 23.3 % (36.0-46.0); Immature Granulocytes % (Auto) 1 % (0-0); Immature Granulocytes Auto 0.03 Thou/mm3 (0.00-0.00); Lymphocytes # (Auto) 1.3 Thou/mm3 (1.0-4.8); Lymphocytes % (Auto) 29 % (10-50); Mean Corpuscular HGB Conc 32.6 g/dl (31.0-37.0); Mean Corpuscular Hemoglobin 31.4 pg (25.0-35.0); Mean Corpuscular Volume 96 fL (80-100); Monocytes # (Auto) 0.6 Thou/mm3 (0.0-0.8); Monocytes % (Auto) 14 % (0-12); Neutrophils # (Auto) 2.3 Thou/mm3 (1.8-7.7); Neutrophils % (Auto) 52 % (37-80); Nucleated Red Blood Cell % 0 /100 WBC (0); Platelet Count 349 Thou/mm3 (140-440); RDW Standard Deviation 54.9 fL (36.4-46.3); Red Blood Count 2.42 Miln/mm3 (4.00-5.20); White Blood Count 4.4 Thou/mm3 (3.6-11.0)
[2024-12-19 06:01] LABS: Hemoglobin 7.6 g/dL (12.0-16.0)
[2024-12-19 07:04] LABS: Alanine Aminotransferase < 7 U/L (10-49); Albumin, Serum 2.8 gm/dL (3.5-5.0); Alkaline Phosphatase 85 U/L (46-116); Anion Gap 12 (7-16); Aspartate Amino Transferase < 8 U/L (0-34); BUN/Creatinine Ratio 27 Ratio (12-20); Bilirubin,Total < 0.2 mg/dL (0.3-1.2); Blood Urea Nitrogen 96 mg/dL (9-23); Calcium 7.5 mg/dL (8.3-10.6); Calcium (Corrected) 8.5 mg/dL (8.5-10.1); Carbon Dioxide 20.9 mMol/L (20.0-31.0); Chloride 111 mMol/L (98-107); Creatinine (Component) 3.5 mg/dL (0.6-1.3); Estimated Creatinine Clearance 22.7 mL/min (>60); Globulin 2.9 gm/dL (2.3-3.5); Glucose 82 mg/dL (74-106); Magnesium 1.5 mg/dL (1.6-2.6); Osmolality,Calculated 315 (275-295); Phosphorous 5.7 mg/dL (2.4-5.1); Potassium 3.6 mMol/L (3.4-5.1); Sodium 144 mMol/L (136-145); Total Protein 5.7 gm/dL (5.7-8.2); eGFR 15 See Note
[2024-12-19] MEDS: CITRIC ACID/SODIUM CITR 15 ML UDC (BICITRA) 30 ML PO (08:49)
[2024-12-19] MEDS: MEROPENEM INJ 1,000 MG in SODIUM CHLORIDE 0.9% (Popper) 50 ML 100 MG IV (08:50)
[2024-12-19] MEDS: ESCITALOPRAM OXALATE 10 MG TABLET 20 MG PO (08:50)
[2024-12-19] MEDS: SENNA TABLET 1 TAB PO (08:51)
[2024-12-19] MEDS: DOXYCYCLINE 100 MG TABLET PO ×2 (08:51→20:33)
[2024-12-19] MEDS: BALSAM PERU/CASTOR OIL (Venelex) 60 GM TUBE TOP ×2 (08:51→20:34)
--- NOTE | 2024-12-19 08:56 | PD.RESPRO ---
Documentation for date of: 12/19/24 Subjective Subjective Interval history: Mr. 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 Patient has a urostomy in place(under Dr. Sam), the patient was sent to the emergency room from her primary care physician office due to abnormal labs and kidney function. Patient reported having abdominal pain with bilateral lower abdominal quadrants for 3 to 4 days, also reported 2 episodes of nonbloody diarrhea. Initially considered hemodialysis due to acute renal failure, but patient's urine output started to improve, recommended bicarb and repeating blood gas and renal ultrasound to evaluate for hydronephrosis. Nephrology was consulted for management of severe metabolic acidosis and acute kidney injury. In the ER initial vitals showed blood pressure 109/74, pulse 104/min, respiratory rate 18/min, Tmax 90 8.8F, saturating 96% on room air. Initial labs in the ER showed CBC shows mild anemia, CMP shows severe high anion gap metabolic acidosis and acute kidney injury, sodium 135, potassium 5.5 chloride 112, carbon oxide less than 10, anion gap 13, BUN 108, creatinine 3.9, EGFR 13, glucose 93, osmolarity 304, lactic acid 0.9, phosphorus 6.7, PTH 35.3. Urinalysis shows 3+ protein, 2+ blood, urine WBC 951 2+ bacteria initial ABG showed pH 7.13, pCO2 22 [id number], bicarb 7, SaO2 99% on room air. Initial CT abdomen pelvis showed bilateral renal calculi with moderate bilateral hydronephrosis secondary to ureteral calculi, noted 10 mm left ureteral calculus 7 mm right ureteral calculus, 15 mm left renal pelvic stone and 20 mm right kidney stone. Absent urinary bladder. Extensive soft tissue infection posterior pelvis extending to the anus with marked thickening rectal involvement. 12/19/2024, patient evaluated bedside, reports feeling better, urine output documented at 1700 mL overnight. Urostomy bag filled with urine, can consider attaching drainage bag. Dr. Rivera spoke to Dr. Miner urologist, agreed to have a look. Patient has right ureteral calculus and right mild to moderate hydronephrosis. Noted improvement in BUN, urine output improving, will hold off on hemodialysis at this point. Pending urology recommendations. Concern for lower extremity edema, will decrease IV fluid rate to 75 cc/h. Continue with Bicitra. NA 144 K3.6 CL 111 CO2 20.9 BUN 96 creatinine 3.5 Exam Vital Signs Temp Pulse Resp BP Pulse Ox O2 Del Method 97.2 F 82 18 97/59 L 96 Room Air 12/19/24 08:00 12/19/24 08:00 12/19/24 08:00 12/19/24 08:00 12/19/24 08:00 12/19/24 08:00 Narrative Exam Physical Exam GENERAL: NAD, AAOx3 HEENT: Moist mucosa. Eyes open, symmetrical, & clear CARDIO: Heart RRR, no obvious murmurs PULM: No noted coughing/dyspnea CTA B/L, no R/W/R GI: Abdomen soft, nondistended, no pain on palpation. BSx4, surgical scars noted, urostomy bag noted SKIN/MSK/EXT: Bilateral lower extremity edema, noted joint deformity, and 3 toes on the right foot Objective Labs 12/19/24 09:17 12/19/24 05:19 Labs: Laboratory Results - last 24 hr 12/18/24 12/18/24 12/18/24 13:40 15:51 16:15 WBC RBC Hgb Hct MCV MCH MCHC RDW Std Deviation Plt Count Neut % (Auto) Lymph % (Auto) [place] % (Auto) Eos % (Auto) Baso % (Auto) Neut # (Auto) Lymph # (Auto) [place] # (Auto) Eos # (Auto) Baso # (Auto) Immature Gran # (Auto) Absolute Nucleated RBC Immature Gran % Nucleated RBC % Puncture Site Left Radial ABG pH 7.39 D ABG pCO2 31 L ABG pO2 93 ABG HCO3 19 L ABG O2 Saturation 98 ABG Base Excess -5 L FiO2 21 Sodium 145 Potassium 2.5 L* D Chloride 110 H Carbon Dioxide 20.2 Anion Gap 15 BUN 108 H* Creatinine 3.6 H Estim Creat Clear Calc 22.0 L eGFR 15 L BUN/Creatinine Ratio 30 H Glucose 172 H Calculated Osmolality 326 H Calcium 7.7 L Corrected Calcium 8.6 Phosphorus 6.0 H Magnesium Total Bilirubin AST ALT Alkaline Phosphatase Total Protein Albumin 2.9 L D Globulin Albumin/Globulin Ratio Ur Random Sodium 84.8 Ur Random Potassium 25 Ur Random Chloride 50.7 L Ur Random Urea Nitrogn 289.0 L Ur Random Calcium 6 12/19/24 05:19 WBC 4.4 RBC 2.42 L Hgb 7.6 L D Hct 23.3 L MCV 96 MCH 31.4 MCHC 32.6 RDW Std Deviation 54.9 H Plt Count 349 Neut % (Auto) 52 Lymph % (Auto) 29 [place] % (Auto) 14 H Eos % (Auto) 4 Baso % (Auto) 0 Neut # (Auto) 2.3 Lymph # (Auto) 1.3 [place] # (Auto) 0.6 Eos # (Auto) 0.2 Baso # (Auto) 0.0 Immature Gran # (Auto) 0.03 H Absolute Nucleated RBC 0.00 Immature Gran % 1 H Nucleated RBC % 0 Puncture Site ABG pH ABG pCO2 ABG pO2 ABG HCO3 ABG O2 Saturation ABG Base Excess FiO2 Sodium 144 Potassium 3.6 D Chloride 111 H Carbon Dioxide 20.9 Anion Gap 12 BUN 96 H Creatinine 3.5 H Estim Creat Clear Calc 22.7 L eGFR 15 L BUN/Creatinine Ratio 27 H Glucose 82 D Calculated Osmolality 315 H Calcium 7.5 L Corrected Calcium 8.5 Phosphorus 5.7 H Magnesium 1.5 L Total Bilirubin < 0.2 L AST < 8 ALT < 7 L Alkaline Phosphatase 85 D Total Protein 5.7 Albumin 2.8 L Globulin 2.9 Albumin/Globulin Ratio 1.0 L Ur Random Sodium Ur Random Potassium Ur Random Chloride Ur Random Urea Nitrogn Ur Random Calcium ABG Interpretation ABG results: 12/17/24 12/18/24 12/18/24 23:04 05:49 08:35 ABG pH 7.13 L* 7.18 L* 7.24 L ABG pCO2 22 L 26 L 27 L ABG pO2 109 H 99 89 ABG HCO3 7 L* 10 L 12 L ABG O2 Saturation 99 H 98 98 ABG Base Excess -20 L -17 L -14 L 12/18/24 16:15 ABG pH 7.39 D ABG pCO2 31 L ABG pO2 93 ABG HCO3 19 L ABG O2 Saturation 98 ABG Base Excess -5 L Quality Measures Quality Measures none Assessment & Plan Assessment Current Active Medications: Generic Name Dose Route Start Last Admin Trade Name Freq PRN Reason Stop Dose Admin Acetaminophen 1,000 mg 12/17/24 22:44 Acetaminophen 500 Mg Tablet PO 01/16/25 22:43 Q6H PRN PAIN SCALE 1-3 (mild Acetaminophen 650 mg 12/17/24 22:36 Acetaminophen 325 Mg Tablet PO 01/16/25 22:35 Q6H PRN Fever >99.5 Balsam Philippe/Joppa Oil 0 gm 12/18/24 21:00 12/19/24 08:51 Balsam Philippe/[place] Oil (Venelex) 60 Gm Tube TOP 01/17/25 20:59 1 applicatio BID CARLOS Administration Citric Acid/Sodium Citrate 30 ml 12/18/24 09:00 12/19/24 08:49 Citric Acid/Sodium Citr 15 Ml Udc (Bicitra) PO 01/17/25 08:59 30 ml BID CARLOS Administration Doxycycline Hyclate 100 mg 12/18/24 21:00 12/19/24 08:51 Doxycycline 100 Mg Tablet PO 12/25/24 20:59 100 mg BID CARLOS Administration Escitalopram Oxalate 20 mg 12/19/24 09:00 12/19/24 08:50 Escitalopram Oxalate 10 Mg Tablet PO 01/18/25 08:59 20 mg QDAY CARLOS Administration Glucagon 1 mg 12/18/24 04:43 Glucagon Inj 1 Mg Vial IM Q15MIN PRN BG <70, and no IV access Meropenem 1,000 mg/ Sodium 50 mls @ 100 mls/hr 12/18/24 09:00 12/19/24 08:50 Chloride IV 12/25/24 08:59 100 mls/hr Q12HR CARLOS Administration Potassium Chloride 40 meq/ 1,020 mls @ 125 mls/hr 12/18/24 17:13 12/19/24 02:15 Lactated Ringer's IV 01/17/25 17:12 125 mls/hr .Q8H10M CARLOS Administration Ondansetron HCl 4 mg 12/17/24 22:36 Ondansetron Inj 2 Mg/Ml Inj 2 Ml IVP 01/16/25 22:35 Q6H PRN NAUSEA OR VOMITING Protocol Sennosides 1 tab 12/18/24 09:00 12/19/24 08:51 Senna Tablet PO 01/17/25 08:59 1 tab QDAY CARLOS Administration Protocol Plan (1) JOSEPH (acute kidney injury): Status: Acute Assessment and plan: Noted to have acute kidney injury, possible etiology prerenal versus postrenal. Patient does have imaging findings consistent with obstructive nephropathy given bilateral ureteric stones and bilateral moderate hydronephrosis. Also has fairly large stone burden in bilateral renal pelvises. Patient has an ileal pouch with urostomy in place. Absent urinary bladder. Plan due to severe metabolic acidosis and acute kidney injury, pH less than 7.2, considered hemodialysis, but urine output gradually improved. Currently urine output 800 mL over last 24 hours. ? Will monitor closely for worsening renal function, will consider hemodialysis if no improvement with bicarb. ? IV bicarb pushes x 2, now on bicarb drip. ? Repeat ABG in the afternoon ? Repeat ultrasound renal, to evaluate for any improvement in hydronephrosis given ureteric stones. ? Consider urology consult to Dr. Miner due to bilateral ureteric stones, if any intervention is needed. (2) Obstructive nephropathy: Status: Acute Assessment and plan: Initial CT abdomen pelvis showed bilateral renal calculi with moderate bilateral hydronephrosis secondary to ureteral calculi, noted 10 mm left ureteral calculus 7 mm right ureteral calculus, 15 mm left renal pelvic stone and 20 mm right kidney stone. Absent urinary bladder. ? Consider urology consult to Dr. Miner due to bilateral ureteric stones right ureteric stone and hydronephrosis, if any intervention is needed. (3) High anion gap metabolic acidosis: Status: resolving Assessment and plan: High anion gap metabolic acidosis with normal anion gap metabolic acidosis and appropriate respiratory compensation, lactic acid normal, likely uremia due to high anion gap metabolic acidosis, though patient could also have a component of renal tubular acidosis given extensive history of kidney stones//bicarbonate losses through urostomy.. ? Will order urine sodium, urine potassium, urine creatinine, Urine chloride. ? Repeat ABG in the afternoon. ? Continue Bicitra (4) Urinary tract infection: Status: Acute Assessment and plan: Urinalysis positive for UTI. Initially started on meropenem, ? Management per primary team (5) Adrenal nodule: Status: Acute Assessment and plan: Patient has a 25 mm adrenal nodule, patient was unaware of adrenal nodule, recommended following up outpatient with primary care physician, for supervisor laboratory animal facility referral and evaluation. Doubt functioning tumor with normal blood pressure Plan Plan of care discussed with Dr. Miguel Weiner PGY2 Attending Provider Attestation/Addendum Patient seen and examined with resident physician Dr. Quresh. Note reviewed, agree with findings and recommendations. Renal consultation requested for acute renal failure, metabolic acidosis. Patient clinically seems to be much better. Spoke to Dr. Sellers - continue with Evaristo. Repeat renal ultrasound showed right hydronephrosis. Spoke to Dr. Sam-will come and see the patient today. If lithotripsy cannot be done might need percutaneous nephrostomy tube placement. Urine output more than 1 L. Hold off on dialysis. Metabolic acidosis, BUN improved.
[2024-12-19 09:27] LABS: Hematocrit 26.9 % (36.0-46.0); Hemoglobin 8.9 g/dL (12.0-16.0)
[2024-12-19] MEDS: Magnesium Sulfate 4 GM Ivpb 4 GM/50 ML BAG IV (10:30)
[2024-12-19] MEDS: cefTRIAXone/D5w 1gm IV premix 1 GM/50 ML BAG IV (10:30)
--- NOTE | 2024-12-19 14:40 | PC.SS ---
Rounding note: patient continues receiving fluids and is pending urology recommendations. D/c plan is to return home.
--- NOTE | 2024-12-19 17:13 | ESPR_ITS ---
<Statement entered by Freedom Donovan MD - 12/20/24 07:16> I discussed with and supervised the supply chain intern physician involved in the care of this patient. Patient assessment and plan was discussed with entire medicine team, including my attending. I agree with the assessment and plan as documented by supply chain intern doctor. Patient care was discussed with my attending physician Dr. Verito Donovan, PGY-2 Documentation for date of: 12/19/24 Subjective Subjective Interval history: Patient is seen and examined at the bedside No acute overnight events. Denies any other complaints Labs showed hemoglobin 7.6, later repeat H&H showed hemoglobin 8.9 Renal functions are improving and bicarb level is within normal limits Patient urinary culture came back positive for E. coli which is pansensitive and patient was started on ceftriaxone, meropenem is stopped Will continue to monitor renal functions. Exam Vital Signs Temp Pulse Resp BP Pulse Ox O2 Del Method 97.2 F 68 19 95/53 L 94 L Room Air 12/19/24 16:00 12/19/24 16:00 12/19/24 16:00 12/19/24 16:00 12/19/24 16:12/19/24 16:00 Narrative Exam General: Awake. HEENT: Normocephalic, atraumatic, mucous membranes moist. Heart: Regular rate and rhythm, no murmurs. Lungs: Clear to auscultation with no wheezing or crackles. Abdomen: Soft, nondistended, nontender, positive bowel sounds. ?No guarding or rebound tenderness. Neurologic: Alert and oriented x3, not able to move lower extremities. Extremities: No edema. Skin: No rash or ecchymoses. noted Decubitus ulcer Objective Labs 12/20/24 05:04 12/20/24 05:04 Labs: Laboratory Results - last 24 hr 12/18/24 12/19/24 12/19/24 13:40 05:19 09:17 WBC 4.4 RBC 2.42 L Hgb 7.6 L D 8.9 L Hct 23.3 L 26.9 L MCV 96 MCH 31.4 MCHC 32.6 RDW Std Deviation 54.9 H Plt Count 349 Neut % (Auto) 52 Lymph % (Auto) 29 [place] % (Auto) 14 H Eos % (Auto) 4 Baso % (Auto) 0 Neut # (Auto) 2.3 Lymph # (Auto) 1.3 [place] # (Auto) 0.6 Eos # (Auto) 0.2 Baso # (Auto) 0.0 Immature Gran # (Auto) 0.03 H Absolute Nucleated RBC 0.00 Immature Gran % 1 H Nucleated RBC % 0 Sodium 144 Potassium 3.6 D Chloride 111 H Carbon Dioxide 20.9 Anion Gap 12 BUN 96 H Creatinine 3.5 H Estim Creat Clear Calc 22.7 L eGFR 15 L BUN/Creatinine Ratio 27 H Glucose 82 D Calculated Osmolality 315 H Calcium 7.5 L Corrected Calcium 8.5 Phosphorus 5.7 H Magnesium 1.5 L Total Bilirubin < 0.2 L AST < 8 ALT < 7 L Alkaline Phosphatase 85 D Total Protein 5.7 Albumin 2.8 L Globulin 2.9 Albumin/Globulin Ratio 1.0 L Ur Random Sodium 84.8 Ur Random Potassium 25 Ur Random Chloride 50.7 L Ur Random Urea Nitrogn 289.0 L Ur Random Calcium 6 ABG Interpretation ABG results: 12/17/24 12/18/24 12/18/24 23:04 05:49 08:35 ABG pH 7.13 L* 7.18 L* 7.24 L ABG pCO2 22 L 26 L 27 L ABG pO2 109 H 99 89 ABG HCO3 7 L* 10 L 12 L ABG O2 Saturation 99 H 98 98 ABG Base Excess -20 L -17 L -14 L 12/18/24 16:15 ABG pH 7.39 D ABG pCO2 31 L ABG pO2 93 ABG HCO3 19 L ABG O2 Saturation 98 ABG Base Excess -5 L Quality Measures Quality Measures none Assessment & Plan Assessment Current Active Medications: Generic Name Dose Route Start Last Admin Trade Name Freq PRN Reason Stop Dose Admin Acetaminophen 1,000 mg 12/17/24 22:44 Acetaminophen 500 Mg Tablet PO 01/16/25 22:43 Q6H PRN PAIN SCALE 1-3 (mild Acetaminophen 650 mg 12/17/24 22:36 Acetaminophen 325 Mg Tablet PO 01/16/25 22:35 Q6H PRN Fever >99.5 Balsam [employer] Oil 0 gm 12/18/24 21:00 12/19/24 08:51 Balsam [employer] Oil (Venelex) 60 Gm Tube TOP 01/17/25 20:59 1 applicatio BID CARLOS Administration Citric Acid/Sodium Citrate 30 ml 12/20/24 09:00 Citric Acid/Sodium Citr 15 Ml Udc (Bicitra) PO 01/19/25 08:59 QDAY CARLOS Doxycycline Hyclate 100 mg 12/18/24 21:00 12/19/24 08:51 Doxycycline 100 Mg Tablet PO 12/25/24 20:59 100 mg BID CARLOS Administration Escitalopram Oxalate 20 mg 12/19/24 09:00 12/19/24 08:50 Escitalopram Oxalate 10 Mg Tablet PO 01/18/25 08:59 20 mg QDAY CARLOS Administration Glucagon 1 mg 12/18/24 04:43 Glucagon Inj 1 Mg Vial IM Q15MIN PRN BG <70, and no IV access Ceftriaxone Sodium/Dextrose 1 gm in 50 mls @ 100 mls/hr 12/19/24 10:18 12/19/24 15:24 Rocephin/D5w 1gm Iv Premix IV 12/26/24 10:17 Infused QDAY CARLOS Infusion Ondansetron HCl 4 mg 12/17/24 22:36 Ondansetron Inj 2 Mg/Ml Inj 2 Ml IVP 01/16/25 22:35 Q6H PRN NAUSEA OR VOMITING Protocol Sennosides 1 tab 12/18/24 09:00 12/19/24 08:51 Senna Tablet PO 01/17/25 08:59 1 tab QDAY CARLOS Administration Protocol Plan 49-year-old female with past medical history as stated above who presented to the ED from her PCPs office due to abnormal labs and admitted for JOSEPH, likely prerenal in the setting of vomitings and diarrhea. # Uremia and metabolic acidosis, resolved likely in the setting of # Acute renal failure, likely prerenal on CKD, resolving # Likely 2/2 E. coli UTI # Hx of urostomy Patient went to PCP office found with abnormal labs including elevated creatinine and uremia UA shows UTI and previous cultures from chart review shows hx of ESBL Patient not encephalopathic is AAOx3 Baseline Creatinine ~0.9-1.2 PTH is mildly elevated, 95.3 - Ordered renal usd, will follow up - showed renal calculi and ureteral calculi - Urine Cx showed E. coli - pansensitive Plan ? On Meropenem (12/18 -12/19), changed to ceftriaxone based on urine culture results (12/19 - - Will avoid nephrotoxic medications and renally dose medications - Consulted urologist, Dr. Sam and recommended no interventions as of now - Will monitor renal functions - Will continue Bicitra # Hypomagnesemia, likely due to GI losses - Magnesium on 12/19/2024 is 1.5 Plan - Repleted with 4 g of IV magnesium # Hyperphosphatemia, resolving - Likely due to underlying JOSEPH on CKD - Phosphorus levels tends to be downtrending since admission Plan - Will monitor phosphorus and will treat accordingly #spina bifida #Paraparesis and chronically bed ridden #History of pressure ulcers ? Wound care - Will continue Meropenem and Doxycycline Health Maintenance: Disposition: Telemetry Feeding: Renal Thrombo prophylaxis: scd Gastric Ulcer prophylaxis: None CODE STATUS: Full code Patient plan of care was discussed with the attending physician, Dr. Sellers and senior resident Dr. Vensu Son, PGY1 Attending Provider Attestation/Addendum Karen, Shelbie Sellers, DO, attest that I was physically present for the nicole portions of the service and evaluated the patient with the resident and I reviewed and discussed the case with the resident and agree with the resident's findings and plans of care as documented above Patient seen and evaluated this a.m. Patient much more alert and oriented x 3 today. She denies any shortness of breath or chest pain. Continue to monitor urinary output. Will discontinue bicarb at this time due to improvement of metabolic acidosis. Renal function also much improved. Urine cultures positive for E. coli that appears to be pansensitive. Will de-escalate antibiotics. Will give gentle IV fluids. Patient was eval by urology today. Case was discussed with urology and recommends outpatient follow-up. Patient appears stable at this time and does not appear to be having any flank pain due to nephrolithiasis. Will continue with current management and anticipate discharge within the next 24 hours if renal function improves.
--- NOTE | 2024-12-19 17:17 | ESCONSULT_ITS ---
RE: KANWAL HAGAN : 1975 DATE OF CONSULTATION: 12/18/2024 CHIEF COMPLAINT: Abdominal pain. HISTORY OF PRESENT ILLNESS: This is a 49-year-old female. She has past medical history of spina bifida. The patient is wheelchair bound. She has neurogenic bladder as a result of spina bifid she is status post iliac loop diversion. The patient has history of chronic decubitus ulcers and recurrent UTI. She has bilateral staghorn calculi. The patient had cysto, laser stone fragmentation, stone basketing. This was done about a year ago. The patient came to emergency room with a history of abdominal pain also has some nausea but no vomiting. Today patient is feeling a lot better no abdominal pain no fever ED COURSE: Vital signs are blood pressure 109/74, heart rate 104, saturation 96% on room air. ED lab normocytic anemia, hyperkalemia, chloride is 112, bicarb is less than 10, BUN is 108, creatinine is 3.9. 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 SOCIAL HISTORY: Denies alcohol use. Denies cigarettes. REVIEW OF SYSTEMS: All system reviewed, normal except as documented. PHYSICAL EXAMINATION: General: Condition is satisfactory. Orientation x3. HEENT: Normocephalic and atraumatic. The patient is not in acute distress. She is lying comfortably in the bed. The patient is feeling better. No abdominal pain. VARIOUS LABS: WBC is 6.2, hemoglobin 11.0, serum sodium 135, potassium 5.5, chloride 112, BUN is 108, creatinine 3.8. CAT scan was reviewed. She has bilateral staghorn calculi and stone in the ureter. She has hydronephrosis as a result of refluxing ureters and also partial obstruction from Ureteral stone but contrast is draining into the conduit there is no complete obstruction. IMPRESSION: 1. Acute kidney injury on chronic kidney disease. 2. Metabolic acidosis. 3. Uremia. 4. Urinary tract infection. RECOMMENDATIONS: 1. Continue with intravenous antibiotics per urine culture sensitivity. Repeat BUN and creatinine 2. At this time patient does not need placement of percutaneous nephrostomies if the patient does not improve then she she may need a placement of percutaneous nephrostomy. Patient already has a follow-up appointment with me in my office All above issues were discussed with the patient in detail. Questions answered to her satisfaction. She verbalized understanding. DT: 13:36:11 TT: 17:15:00 Ref: - TID: [id number] MTDD
[2024-12-19] MEDS: RINGERS LACTATED 1000 ML 1,000 ML 100 ML IV (18:36)
[2024-12-19] MEDS: MELATONIN 3 MG TABLET PO (22:52)
[2024-12-19] MEDS: ALBUMIN HUMAN 25% IVPB 25 GM/100 ML BTL IV (22:52)
[2024-12-20] VITALS (7 sets, daily range): BP systolic 98–104; BP diastolic 54–78; PULSE 75–98; RESP 17–95; TEMP 36.1–36.6; O2SAT 93–97
[2024-12-20 05:23] LABS: Basophils % (Auto) 0 % (0-2.5); Eosinophils # (Auto) 0.2 Thou/mm3 (0.0-0.5); Eosinophils % (Auto) 7 % (0-10); Hematocrit 23.8 % (36.0-46.0); Immature Granulocytes % (Auto) 1 % (0-0); Immature Granulocytes Auto 0.02 Thou/mm3 (0.00-0.00); Lymphocytes # (Auto) 0.9 Thou/mm3 (1.0-4.8); Lymphocytes % (Auto) 28 % (10-50); Mean Corpuscular HGB Conc 31.9 g/dl (31.0-37.0); Mean Corpuscular Hemoglobin 31.5 pg (25.0-35.0); Mean Corpuscular Volume 99 fL (80-100); Monocytes # (Auto) 0.4 Thou/mm3 (0.0-0.8); Monocytes % (Auto) 13 % (0-12); Neutrophils # (Auto) 1.7 Thou/mm3 (1.8-7.7); Neutrophils % (Auto) 51 % (37-80); Nucleated Red Blood Cell % 0 /100 WBC (0); Platelet Count 286 Thou/mm3 (140-440); RDW Standard Deviation 56.5 fL (36.4-46.3); Red Blood Count 2.41 Miln/mm3 (4.00-5.20); White Blood Count 3.2 Thou/mm3 (3.6-11.0)
[2024-12-20 05:33] LABS: Hemoglobin 7.6 g/dL (12.0-16.0)
[2024-12-20 05:57] LABS: Alanine Aminotransferase < 7 U/L (10-49); Albumin/Globulin Ratio 1.3 (1.2-2.2); Alkaline Phosphatase 71 U/L (46-116); Anion Gap 12 (7-16); Aspartate Amino Transferase < 8 U/L (0-34); BUN/Creatinine Ratio 29 Ratio (12-20); Bilirubin,Total < 0.2 mg/dL (0.3-1.2); Blood Urea Nitrogen 87 mg/dL (9-23); Calcium 8.4 mg/dL (8.3-10.6); Calcium (Corrected) 9.2 mg/dL (8.5-10.1); Carbon Dioxide 20.6 mMol/L (20.0-31.0); Chloride 107 mMol/L (98-107); Estimated Creatinine Clearance 26.4 mL/min (>60); Globulin 2.4 gm/dL (2.3-3.5); Glucose 81 mg/dL (74-106); Magnesium 1.8 mg/dL (1.6-2.6); Osmolality,Calculated 304 (275-295); Sodium 140 mMol/L (136-145); Total Protein 5.4 gm/dL (5.7-8.2); eGFR 18 See Note
[2024-12-20] MEDS: cefTRIAXone/D5w 1gm IV premix 1 GM/50 ML BAG IV (08:05)
[2024-12-20] MEDS: CITRIC ACID/SODIUM CITR 15 ML UDC (BICITRA) 30 ML PO (08:06)
[2024-12-20] MEDS: POTASSIUM CHLORIDE 20 mEq TABCR 40 MEQ PO (08:07)
[2024-12-20] MEDS: DOXYCYCLINE 100 MG TABLET PO (08:08)
[2024-12-20] MEDS: ESCITALOPRAM OXALATE 10 MG TABLET 20 MG PO (08:08)
[2024-12-20] MEDS: POTASSIUM CHL 10 mEq IVPB 10 MEQ/100 ML BAG 100 MEQ IV ×2 (08:11→09:10)
[2024-12-20] MEDS: BALSAM PERU/CASTOR OIL (Venelex) 60 GM TUBE TOP (08:12)
[2024-12-20] MEDS: Magnesium Sulfate 2 GM Ivpb 2 GM/50 ML BAG IV (08:26)
--- NOTE | 2024-12-20 10:04 | PD.RESPRO ---
Documentation for date of: 12/20/24 Subjective Subjective Interval history: Mr. 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 Patient has a urostomy in place(under Dr. Sam), the patient was sent to the emergency room from her primary care physician office due to abnormal labs and kidney function. Patient reported having abdominal pain with bilateral lower abdominal quadrants for 3 to 4 days, also reported 2 episodes of nonbloody diarrhea. Initially considered hemodialysis due to acute renal failure, but patient's urine output started to improve, recommended bicarb and repeating blood gas and renal ultrasound to evaluate for hydronephrosis. Nephrology was consulted for management of severe metabolic acidosis and acute kidney injury. In the ER initial vitals showed blood pressure 109/74, pulse 104/min, respiratory rate 18/min, Tmax 90 8.8F, saturating 96% on room air. Initial labs in the ER showed CBC shows mild anemia, CMP shows severe high anion gap metabolic acidosis and acute kidney injury, sodium 135, potassium 5.5 chloride 112, carbon oxide less than 10, anion gap 13, BUN 108, creatinine 3.9, EGFR 13, glucose 93, osmolarity 304, lactic acid 0.9, phosphorus 6.7, PTH 35.3. Urinalysis shows 3+ protein, 2+ blood, urine WBC 951 2+ bacteria initial ABG showed pH 7.13, pCO2 22 [id number], bicarb 7, SaO2 99% on room air. Initial CT abdomen pelvis showed bilateral renal calculi with moderate bilateral hydronephrosis secondary to ureteral calculi, noted 10 mm left ureteral calculus 7 mm right ureteral calculus, 15 mm left renal pelvic stone and 20 mm right kidney stone. Absent urinary bladder. Extensive soft tissue infection posterior pelvis extending to the anus with marked thickening rectal involvement. 12/19/2024, patient evaluated bedside, reports feeling better, urine output documented at 1700 mL overnight. Urostomy bag filled with urine, can consider attaching drainage bag. Dr. Rivera spoke to Dr. Miner urologist, agreed to have a look. Patient has right ureteral calculus and right mild to moderate hydronephrosis. Noted improvement in BUN, urine output improving, will hold off on hemodialysis at this point. Pending urology recommendations. Concern for lower extremity edema, will decrease IV fluid rate to 75 cc/h. Continue with Bicitra. NA 144 K3.6 CL 111 CO2 20.9 BUN 96 creatinine 3.5 12/20/2024, patient evaluated at the bedside, urine output 700 mL, improvement in BUN and creatinine, continuing to downtrend. Urology will follow the patient, recommended no acute intervention at this point, recommend to follow-up outpatient with urology for renal calculi. From nephrology standpoint, we will sign off on the patient, recommend continuing with bicarb tabs, antibiotics, and follow-up with Dr. Rivera in her office next week after discharge. Labs this a.m. sodium 140, potassium 3.0, chloride 107, bicarb 20.6, BUN 87, creatinine 3.0 Exam Vital Signs Temp Pulse Resp BP Pulse Ox O2 Del Method 96.9 F 87 18 101/57 L 94 L Room Air 12/20/24 08:00 12/20/24 08:26 12/20/24 08:26 12/20/24 08:00 12/20/24 08:00 12/20/24 08:00 Narrative Exam Physical Exam GENERAL: NAD, AAOx3 HEENT: Moist mucosa. Eyes open, symmetrical, & clear CARDIO: Heart RRR, no obvious murmurs PULM: No noted coughing/dyspnea CTA B/L, no R/W/R GI: Abdomen soft, nondistended, no pain on palpation. BSx4, surgical scars noted, urostomy bag noted SKIN/MSK/EXT: Bilateral lower extremity edema, noted joint deformity, and 3 toes on the right foot Objective Labs 12/20/24 05:04 12/20/24 05:04 Labs: Laboratory Results - last 24 hr 12/20/24 05:04 WBC 3.2 L RBC 2.41 L Hgb 7.6 L Hct 23.8 L MCV 99 MCH 31.5 MCHC 31.9 RDW Std Deviation 56.5 H Plt Count 286 D Neut % (Auto) 51 Lymph % (Auto) 28 Saline % (Auto) 13 H Eos % (Auto) 7 Baso % (Auto) 0 Neut # (Auto) 1.7 L Lymph # (Auto) 0.9 L Saline # (Auto) 0.4 Eos # (Auto) 0.2 Baso # (Auto) 0.0 Immature Gran # (Auto) 0.02 H Absolute Nucleated RBC 0.00 Immature Gran % 1 H Nucleated RBC % 0 Sodium 140 Potassium 3.0 L D Chloride 107 Carbon Dioxide 20.6 Anion Gap 12 BUN 87 H Creatinine 3.0 H D Estim Creat Clear Calc 26.4 L eGFR 18 L BUN/Creatinine Ratio 29 H Glucose 81 Calculated Osmolality 304 H Calcium 8.4 Corrected Calcium 9.2 Phosphorus 5.0 Magnesium 1.8 Total Bilirubin < 0.2 L AST < 8 ALT < 7 L Alkaline Phosphatase 71 Total Protein 5.4 L Albumin 3.0 L Globulin 2.4 Albumin/Globulin Ratio 1.3 ABG Interpretation ABG results: 12/17/24 12/18/24 12/18/24 23:04 05:49 08:35 ABG pH 7.13 L* 7.18 L* 7.24 L ABG pCO2 22 L 26 L 27 L ABG pO2 109 H 99 89 ABG HCO3 7 L* 10 L 12 L ABG O2 Saturation 99 H 98 98 ABG Base Excess -20 L -17 L -14 L 12/18/24 16:15 ABG pH 7.39 D ABG pCO2 31 L ABG pO2 93 ABG HCO3 19 L ABG O2 Saturation 98 ABG Base Excess -5 L Quality Measures Quality Measures none Assessment & Plan Assessment Current Active Medications: Generic Name Dose Route Start Last Admin Trade Name Freq PRN Reason Stop Dose Admin Acetaminophen 1,000 mg 12/17/24 22:44 Acetaminophen 500 Mg Tablet PO 01/16/25 22:43 Q6H PRN PAIN SCALE 1-3 (mild Acetaminophen 650 mg 12/17/24 22:36 Acetaminophen 325 Mg Tablet PO 01/16/25 22:35 Q6H PRN Fever >99.5 Balsam [place] Oil 0 gm 12/18/24 21:00 12/20/24 08:12 Balsam [place] Oil (Venelex) 60 Gm Tube TOP 01/17/25 20:59 1 applicatio BID CARLOS Administration Citric Acid/Sodium Citrate 30 ml 12/20/24 09:00 12/20/24 08:06 Citric Acid/Sodium Citr 15 Ml Udc (Bicitra) PO 01/19/25 08:59 30 ml QDAY CARLOS Administration Doxycycline Hyclate 100 mg 12/18/24 21:00 12/20/24 08:08 Doxycycline 100 Mg Tablet PO 12/25/24 20:59 100 mg BID CARLOS Administration Escitalopram Oxalate 20 mg 12/19/24 09:00 12/20/24 08:08 Escitalopram Oxalate 10 Mg Tablet PO 01/18/25 08:59 20 mg QDAY CARLOS Administration Glucagon 1 mg 12/18/24 04:43 Glucagon Inj 1 Mg Vial IM Q15MIN PRN BG <70, and no IV access Ceftriaxone Sodium/Dextrose 1 gm in 50 mls @ 100 mls/hr 12/19/24 10:18 12/20/24 08:05 Rocephin/D5w 1gm Iv Premix IV 12/26/24 10:17 100 mls/hr QDAY CARLOS Administration Albumin Human 25 gm in 100 mls @ 100 mls/hr 12/19/24 22:15 12/19/24 23:52 Albuminar-25 Ivpb IV 12/22/24 22:14 Infused BID CARLOS Infusion Ondansetron HCl 4 mg 12/17/24 22:36 Ondansetron Inj 2 Mg/Ml Inj 2 Ml IVP 01/16/25 22:35 Q6H PRN NAUSEA OR VOMITING Protocol Plan (1) JOSEPH (acute kidney injury): Status: Acute Assessment and plan: Noted to have acute kidney injury, possible etiology prerenal versus postrenal. Patient does have imaging findings consistent with obstructive nephropathy given bilateral ureteric stones and bilateral moderate hydronephrosis. Also has fairly large stone burden in bilateral renal pelvises. Patient has an ileal pouch with urostomy in place. Absent urinary bladder. Plan due to severe metabolic acidosis and acute kidney injury, pH less than 7.2, considered hemodialysis, but urine output gradually improved. Currently urine output 800 mL over last 24 hours. ? Will monitor closely for worsening renal function, will consider hemodialysis if no improvement with bicarb. ? IV bicarb pushes x 2, now on bicarb drip. ? Repeat ABG in the afternoon ? Renal ultrasound showed right hydronephrosis mild to moderate ? urine output 700 mL, improvement in BUN and creatinine, continuing to downtrend. Urology will follow the patient, recommended no acute intervention at this point, recommend to follow-up outpatient with urology for renal calculi. From nephrology standpoint, we will sign off on the patient, recommend continuing with bicarb tabs, antibiotics, and follow-up with Dr. Rivera in her office next week after discharge. (2) Obstructive nephropathy: Status: Acute Assessment and plan: Initial CT abdomen pelvis showed bilateral renal calculi with moderate bilateral hydronephrosis secondary to ureteral calculi, noted 10 mm left ureteral calculus 7 mm right ureteral calculus, 15 mm left renal pelvic stone and 20 mm right kidney stone. Absent urinary bladder. ? Consider urology consult to Dr. Miner due to bilateral ureteric stones right ureteric stone and hydronephrosis, if any intervention is needed. (3) High anion gap metabolic acidosis: Status: resolving Assessment and plan: High anion gap metabolic acidosis with normal anion gap metabolic acidosis and appropriate respiratory compensation, lactic acid normal, likely uremia due to high anion gap metabolic acidosis, though patient could also have a component of renal tubular acidosis given extensive history of kidney stones//bicarbonate losses through urostomy.. ? Will order urine sodium, urine potassium, urine creatinine, Urine chloride. ? Repeat ABG in the afternoon. ? Continue Bicitra (4) Urinary tract infection: Status: Acute Assessment and plan: Urinalysis positive for UTI. Initially started on meropenem, ? Management per primary team (5) Adrenal nodule: Status: Acute Assessment and plan: Patient has a 25 mm adrenal nodule, patient was unaware of adrenal nodule, recommended following up outpatient with primary care physician, for machine stitcher referral and evaluation. Doubt functioning tumor with normal blood pressure Plan Plan of care discussed with Dr. Miguel Weiner PGY2 Attending Provider Attestation/Addendum Patient seen and examined with resident physician Dr. eWiner. Note reviewed, agree with findings and recommendations. Renal consultation requested for acute renal failure, metabolic acidosis. Patient clinically seems to be much better. Spoke to Dr. Sellers - mitra with Randyitra. Repeat renal ultrasound showed right hydronephrosis. Spoke to Dr. Sam-urine output seems to be good. No need for percutaneous nephrostomy tube placement. Suggested to follow-up with me in 1 to 2 weeks. Renal albarran stable for discharge.
[2024-12-20] MEDS: ALBUMIN HUMAN 25% IVPB 25 GM/100 ML BTL IV (10:16)
--- NOTE | 2024-12-20 12:04 | ESDS_ITS ---
<Statement entered by Cesar Mcmullen MD - 12/27/24 20:30> I Cesar Mcmullen MD reviewed the note and agree with the resident's assessment & plan with exceptions as below. I have personally reviewed labs, imaging, home meds/prior records, examined the patient, formulated and discussed management plan with the IM team. Planned Discharge Date 12/23/24 DS: Providers Provider Date of admission: 12/17/24 22:36 Primary care physician: STACIA Merrill Admitting Provider: Cesar Mcmullen MD Attending Provider on Admission: Cesar Mcmullen MD Consults: 12/17/24 22:34 Referral OP Wound Healing Dept Stat Comment: Referral Wound Care Stat Comment: 12/17/24 23:04 Consult to Nephrology Stat Comment: Consulting Provider: Nabil Rivera 12/18/24 14:37 Consult to Urology Routine Comment: nephrolithiasis Consulting Provider: Lesly Miner Attending Provider on DC: Dorian Son MD Discharging Provider: Dorian Son MD DS: Diagnosis Problem List Completed Was Problem List Reviewed/Reconciled?: Yes Hospital Course Hospital Course Hospital course: 49-year-old female with significant past medical history of spina bifida [wheelchair-bound], neurogenic bladder s/p urostomy, chronic decubitus ulcers was referred to our ED from her PCP office in view of abnormal labs and kidney function and was diagnosed to have acute on chronic kidney injury. Hospital course: Labs at the time of admission is significant for hemoglobin 11, sodium 135, potassium 5.5, chloride 112, bicarb less than 10, BUN 108, creatinine 3.9, lactate 0.9, phosphorus 6.7. Urine analysis showed turbid urine with 3+ proteinuria, 2+ blood, 14 RBC, 951 WBC, urine bacteria 2+. Abdomen/pelvis CT showed bilateral renal calculi, moderate bilateral hydronephrosis secondary to ureteral calculi. Abundant stool in the rectum. Chest x-ray showed bilateral pleural effusions. Renal ultrasonography showed right renal calculi with mild to moderate right hydronephrosis. Patient was treated with IV antibiotics, IV fluids, bicarb pushes and drip. Commissioned Fire Officer, Dr. Rivera was consulted and appreciated her recommendations. Neurologist, Dr. Sam was consulted and he recommended no acute interventions as of now. Urine cultures came back positive for E. coli which is pansensitive. Patient renal functions and metabol ic acidosis improved during the hospital stay. Patient is discharged to home with the following medications and recommendations -Follow-up with PCP within 1 week of discharge. If you do not have appointment, please follow-up with the [facility] with Dr. Son. Call [phone] to make an appointment. -Follow up with Dr. Rivera within 1 week of discharge with renal panel -Follow up with Urologist Dr. Sam for renal calculi and hydronephrosis -Start Ciprofloxacin 500mg once daily for 8 days -Start bicitra 30ml once dialy -Continue rest of the home medications as recommended -Return to ED if symptoms persist or return # Uremia and metabolic acidosis, resolved likely in the setting of # Acute renal failure, likely prerenal on CKD, resolving # Likely 2/2 E. coli UTI # Hx of urostomy # Hypomagnesemia # Hyperphosphatemia, resolving #spina bifida #Paraparesis and chronically bed ridden #History of pressure ulcers Patient plan of care was discussed with the attending physician, Dr. Mcmullen and senior resident Dr. Venus Son, PGY1 Time Spent with Patient Time attestation: Total time spent providing and/or coordinating discharge services: Time spent: Greater than 30 minutes Exam Vital Signs Temp Pulse Resp BP Pulse Ox O2 Del Method 97.8 F 98 18 99/78 96 Room Air 12/20/24 16:00 12/20/24 16:00 12/20/24 16:00 12/20/24 16:00 12/20/24 16:00 12/20/24 16:00 Narrative Exam General: Awake. HEENT: Normocephalic, atraumatic, mucous membranes moist. Heart: Regular rate and rhythm, no murmurs. Lungs: Clear to auscultation with no wheezing or crackles. Abdomen: Soft, nondistended, nontender, positive bowel sounds. ?No guarding or rebound tenderness. Neurologic: Alert and oriented x3, not able to move lower extremities. noted deformities in lower extremities Extremities: No edema. Skin: No rash or ecchymoses. noted Decubitus ulcer Discharge Plan Plan Patient Disposition: HOME (Self Care) Patient condition on transfer: Stable Care Plan Goals: -Follow-up with PCP within 1 week of discharge. If you do not have appointment, please follow-up with the [facility] with Dr. Son. Call [phone] to make an appointment. -Follow up with Dr. Rivera within 1 week of discharge with renal panel -Follow up with Urologist Dr. Sam for renal calculi and hydronephrosis -Start Ciprofloxacin 500mg once daily for 8 days -Start bicitra 30ml once dialy -Continue rest of the home medications as recommended -Return to ED if symptoms persist or return Prescriptions/Referrals Prescriptions/Med Rec: New pot,sodium citrate-citric acid 550-500-334 mg/5 mL solution 30 ml PO QDAY Qty: 473 0RF Rx Instructions: Take 30ml once daily ciprofloxacin HCl 500 mg tablet 500 mg PO QDAY Qty: 8 0RF Rx Instructions: Take 1 tablet once daily for 8 days Continued polyethylene glycol 3350 [Miralax] 17 gram/dose powder 4 g PO QDAY albuterol sulfate 90 mcg/actuation Hfa Aerosol Inhaler 2 puff INHALATION Q4HR PRN (Reason: Shortness Of Breath) fluticasone propionate 50 mcg/actuation [place],Suspension 1 spray INTRANASAL BID Rx Instructions: administer into each nostril escitalopram oxalate [Lexapro] 20 mg Tablet 20 mg PO QDAY potassium chloride 15 mEq Tablet,Er Particles/Crystals 15 meq PO BID cholecalciferol (vitamin D3) [Vitamin D3] 125 mcg (5,000 unit) Tablet 125 mcg PO QDAY loratadine 10 mg Capsule 10 mg PO QDAY lactulose 10 gram/15 mL solution 15 - 30 ml PO PRN PRN (Reason: Constipation) Patient Comments: TAKE 15 ML TO 30 ML BY MOUTH DAILY NEEDED FOR CONSTIPATION docusate sodium 100 mg capsule 100 mg PO 1XD PRN (Reason: Constipation) Patient Comments: TAKE ONE CAPSULE BY MOUTH EVERY DAY NEEDED Linzess 145 mcg capsule 145 mcg PO QAM ferrous sulfate 325 mg (65 mg iron) Tablet 325 mg PO Q OTHER DAY 30 Days Qty: 15 0RF mupirocin 2 % ointment 1 applic TOPICAL DAILY Patient Comments: APPLY TO THE AFFECTED AREA(S) EVERY DAY FOR INFECTION Rx Instructions: calcium alginate, adaptic and ABD pad zolpidem 10 mg tablet 10 mg PO QDAY Patient Comments: TAKE ONE TABLET BY MOUTH AT BEDTIME FOR SLEEP Referrals: Yaima Toro FNP [Primary Care Provider] - Nabil Rivera MD [Physician] - Patient/Caregiver Discharge Instructions Education Materials: Kidney Failure Self Care, Self-Care for Vomiting and Diarrhea, Kidney Stones: Your Evaluation, Kidney Stones Your Evaluation, Kidney Stones Expectant Tx, Acute Kidney Failure Dc Print Language: French Stand Alone Forms: Teresa Award Info., Patient Portal Info Letter Discharge Order Discharge Orders: Discharge (Routine); Ordered 12/20/24 Ordered By: Dorian Son Quality Discharge Quality Measures VTE prophylaxis
--- NOTE | 2024-12-20 13:25 | PC.NURSE ---
Pt will need transportation for discharge, SS aware and will arrange.
--- NOTE | 2024-12-20 14:33 | PC.SS ---
Follow up note: Patient to d/c home today. Nursing suggested gurney transport. SS contacted gurney transport through [facility] with a reference #[id number] for 4p.m. Patient going home.
== END 2024-12-20 16:55 | disposition home or self-care (01) | DRG 694 ==
LOC: SERX 21:16 → SERHOLD 23:04 → S3NX 12-18 00:44
PROVIDERS: Internal Medicine; Nurse Practitioner Primary Care; Radiology Diagnostic Radiology; Student in an Organized Health Care Education/Training Program; Admitting Provider Student in an Organized Health Care Education/Training Program; Emergency Provider Family Medicine; PCP Nurse Practitioner Family; Visit Provider Student in an Organized Health Care Education/Training Program
DX: N13.2 Hydronephrosis with renal and ureteral calculous obstruction (principal); E87.20 Acidosis, unspecified; G82.20 Paraplegia, unspecified; J90 Pleural effusion, not elsewhere classified; E87.5 Hyperkalemia; N17.9 Acute kidney failure, unspecified; Q05.9 Spina bifida, unspecified; N31.9 Neuromuscular dysfunction of bladder, unspecified; Z87.440 Personal history of urinary (tract) infections; Z99.3 Dependence on wheelchair; B96.20 Unspecified Escherichia coli [E. coli] as the cause of diseases classified elsewhere; E27.8 Other specified disorders of adrenal gland; E83.39 Other disorders of phosphorus metabolism; E83.42 Hypomagnesemia; L08.9 Local infection of the skin and subcutaneous tissue, unspecified; D63.1 Anemia in chronic kidney disease; N18.9 Chronic kidney disease, unspecified; R19.7 Diarrhea, unspecified; Z74.01 Bed confinement status; Z87.442 Personal history of urinary calculi; Z93.6 Other artificial openings of urinary tract status; Z86.19 Personal history of other infectious and parasitic diseases
CPT/HCPCS: 36415; 36600; 71045; 74176; 76770; 80053; 80069; 80074; 81001; 81025; 82340; 82436; 82803; 83605; 83735; 83970; 84100; 84133; 84145; 84300; 84443; 84540; 85014; 85018; 85025; 85610; 85730; 86580; 87040; 87070; 87077; 87086; 87186; 87205; 93005; 93225; 99285; J0696; J1815; J2185; J3475; J3480; J7030; J7050; J7060; J7120; P9047; A9270

== ENCOUNTER → 2024-12-30 | Outpatient (CLI) | payer MEDICARE, MEDICAID, SELFPAY ==
[2024-12-30 12:21] LABS: Basophils # (Auto) 0.0 Thou/mm3 (0.0-0.2); Basophils % (Auto) 1 % (0-2.5); Eosinophils # (Auto) 0.2 Thou/mm3 (0.0-0.5); Eosinophils % (Auto) 4 % (0-10); Hematocrit 28.2 % (36.0-46.0); Immature Granulocytes Auto 0.02 Thou/mm3 (0.00-0.00); Lymphocytes # (Auto) 0.9 Thou/mm3 (1.0-4.8); Lymphocytes % (Auto) 20 % (10-50); Mean Corpuscular HGB Conc 30.5 g/dl (31.0-37.0); Mean Corpuscular Hemoglobin 31.5 pg (25.0-35.0); Mean Corpuscular Volume 103 fL (80-100); Monocytes # (Auto) 0.4 Thou/mm3 (0.0-0.8); Monocytes % (Auto) 9 % (0-12); Neutrophils # (Auto) 3.1 Thou/mm3 (1.8-7.7); Neutrophils % (Auto) 67 % (37-80); Nucleated Red Blood Cell # 0.00 Thou/mm3 (0.00-0.00); Nucleated Red Blood Cell % 0 /100 WBC (0); Platelet Count 296 Thou/mm3 (140-440); RDW Standard Deviation 56.0 fL (36.4-46.3); Red Blood Count 2.73 Miln/mm3 (4.00-5.20); White Blood Count 4.6 Thou/mm3 (3.6-11.0)
[2024-12-30 12:31] LABS: Hemoglobin 8.6 g/dL (12.0-16.0)
[2024-12-30 12:36] LABS: Albumin, Serum 3.7 gm/dL (3.5-5.0); Anion Gap 11 (7-16); BUN/Creatinine Ratio 29 Ratio (12-20); Blood Urea Nitrogen 52 mg/dL (9-23); Calcium 8.9 mg/dL (8.3-10.6); Calcium (Corrected) 9.1 mg/dL (8.5-10.1); Carbon Dioxide 17.9 mMol/L (20.0-31.0); Chloride 113 mMol/L (98-107); Creatinine (Component) 1.8 mg/dL (0.6-1.3); Glucose 91 mg/dL (74-106); Magnesium 2.1 mg/dL (1.6-2.6); Osmolality,Calculated 297 (275-295); Phosphorous 4.9 mg/dL (2.4-5.1); Potassium 5.0 mMol/L (3.4-5.1); Sodium 142 mMol/L (136-145); Uric Acid 7.7 mg/dL (3.1-7.8); eGFR 34 See Note
[2025-01-17 06:25] LABS: Cortisol,total,LC/MS/MS* 8.9 mcg/dL
== END | disposition home or self-care (01) ==
PROVIDERS: PCP Nurse Practitioner Family; Referring Provider Nurse Practitioner Family; Visit Provider Nurse Practitioner Family
DX: N17.9 Acute kidney failure, unspecified (principal); N18.9 Chronic kidney disease, unspecified; N13.30 Unspecified hydronephrosis; N20.0 Calculus of kidney; N20.1 Calculus of ureter; E27.9 Disorder of adrenal gland, unspecified; D63.1 Anemia in chronic kidney disease
CPT/HCPCS: 36415; 80069; 82533; 83735; 84550; 85025

== ENCOUNTER → 2025-01-01 | Outpatient (CLI) | payer MEDICARE, MEDICAID, SELFPAY | END | disposition home or self-care (01) | LOC: SWHD 13:07 | PROVIDERS: PCP Nurse Practitioner Family; Referring Provider Nurse Practitioner Family; Visit Provider Student in an Organized Health Care Education/Training Program | DX: L89.312 Pressure ulcer of right buttock, stage 2 (principal); E66.01 Morbid (severe) obesity due to excess calories; Q05.9 Spina bifida, unspecified; M86.8X7 Other osteomyelitis, ankle and foot; Z89.421 Acquired absence of other right toe(s); G82.20 Paraplegia, unspecified; R60.0 Localized edema | CPT/HCPCS: 97597; 97598; A9270 ==

== ENCOUNTER → 2025-01-09 | Outpatient (CLI) | payer MEDICARE, MEDICAID, SELFPAY ==
[2025-01-09 13:16] LABS: Hematocrit 29.9 % (36.0-46.0); Hemoglobin 9.1 g/dL (12.0-16.0)
[2025-01-09 13:21] LABS: Anion Gap 11 (7-16); BUN/Creatinine Ratio 17 Ratio (12-20); Blood Urea Nitrogen 26 mg/dL (9-23); Calcium 9.3 mg/dL (8.3-10.6); Carbon Dioxide 22.4 mMol/L (20.0-31.0); Chloride 112 mMol/L (98-107); Creatinine (Component) 1.5 mg/dL (0.6-1.3); Glucose 115 mg/dL (74-106); Osmolality,Calculated 294 (275-295); Potassium 4.6 mMol/L (3.4-5.1); Sodium 145 mMol/L (136-145); eGFR 42 See Note
== END | disposition home or self-care (01) ==
PROVIDERS: PCP Family Medicine
DX: E87.20 Acidosis, unspecified (principal); N18.9 Chronic kidney disease, unspecified; D63.1 Anemia in chronic kidney disease
CPT/HCPCS: 36415; 80048; 85014; 85018

== ENCOUNTER → 2025-01-09 | Outpatient (CLI) | payer MEDICARE, MEDICAID, SELFPAY | END | disposition home or self-care (01) | PROVIDERS: PCP Nurse Practitioner Family; Referring Provider Nurse Practitioner Family; Visit Provider Student in an Organized Health Care Education/Training Program | DX: L89.312 Pressure ulcer of right buttock, stage 2 (principal); E66.01 Morbid (severe) obesity due to excess calories; M86.8X7 Other osteomyelitis, ankle and foot; Z89.421 Acquired absence of other right toe(s); Q05.9 Spina bifida, unspecified; G82.20 Paraplegia, unspecified; R60.0 Localized edema | CPT/HCPCS: 17250; A9270 ==

== ENCOUNTER → 2025-01-16 | Outpatient (CLI) | payer MEDICARE, MEDICAID, SELFPAY | END | disposition home or self-care (01) | LOC: SWHD 14:06 | PROVIDERS: PCP Nurse Practitioner Family; Referring Provider Nurse Practitioner Family; Visit Provider Student in an Organized Health Care Education/Training Program | DX: L89.312 Pressure ulcer of right buttock, stage 2 (principal); E66.01 Morbid (severe) obesity due to excess calories; M86.8X7 Other osteomyelitis, ankle and foot; Z89.421 Acquired absence of other right toe(s); Q05.9 Spina bifida, unspecified; G82.20 Paraplegia, unspecified; R60.0 Localized edema | CPT/HCPCS: 11042; 11045; A9270 ==

== ENCOUNTER → 2025-01-17 | Outpatient (BNVA) | payer MEDICARE, MEDICAID, SELFPAY | END | disposition home or self-care (01) | PROVIDERS: PCP Nurse Practitioner Family; Referring Provider Nurse Practitioner Family; Visit Provider Urology | DX: N31.9 Neuromuscular dysfunction of bladder, unspecified (principal); Q05.9 Spina bifida, unspecified; Z87.440 Personal history of urinary (tract) infections; E66.9 Obesity, unspecified; K21.9 Gastro-esophageal reflux disease without esophagitis; Z99.3 Dependence on wheelchair | CPT/HCPCS: 99212; G0463 ==

== ENCOUNTER 2025-01-22 13:48 | Outpatient (RCR) | payer MEDICARE, MEDICAID, SELFPAY | END 2025-01-23 23:59 | disposition home or self-care (01) | LOC: SCTC 13:48 | PROVIDERS: PCP Nurse Practitioner Family; Referring Provider Nurse Practitioner Family; Visit Provider Internal Medicine Hematology & Oncology | DX: D50.9 Iron deficiency anemia, unspecified (principal); K59.00 Constipation, unspecified; Z87.440 Personal history of urinary (tract) infections; Z87.442 Personal history of urinary calculi | CPT/HCPCS: 96365; A4216; J1756; J7040; J7050 ==

== ENCOUNTER → 2025-01-23 | Outpatient (CLI) | payer MEDICARE, MEDICAID, SELFPAY | END | disposition home or self-care (01) | LOC: SWHD 12:30 | PROVIDERS: PCP Nurse Practitioner Family; Referring Provider Nurse Practitioner Family; Visit Provider Student in an Organized Health Care Education/Training Program | DX: L89.312 Pressure ulcer of right buttock, stage 2 (principal); Z89.421 Acquired absence of other right toe(s); Q05.9 Spina bifida, unspecified; G82.20 Paraplegia, unspecified; R60.0 Localized edema; E66.01 Morbid (severe) obesity due to excess calories | CPT/HCPCS: 99213; G0463 ==

== ENCOUNTER → 2025-01-30 | Outpatient (CLI) | payer MEDICARE, MEDICAID, SELFPAY | END | disposition home or self-care (01) | LOC: SWHD 13:36 | PROVIDERS: PCP Nurse Practitioner Family; Referring Provider Nurse Practitioner Family; Visit Provider Student in an Organized Health Care Education/Training Program | DX: L89.312 Pressure ulcer of right buttock, stage 2 (principal); G82.20 Paraplegia, unspecified; Z89.421 Acquired absence of other right toe(s); R60.0 Localized edema; E66.01 Morbid (severe) obesity due to excess calories | CPT/HCPCS: 17250 ==

== ENCOUNTER 2025-02-12 13:31 | Outpatient (RCR) | payer MEDICARE, MEDICAID, SELFPAY | END 2025-02-23 23:59 | disposition home or self-care (01) | LOC: SCTC 13:31 | PROVIDERS: PCP Nurse Practitioner Family; Referring Provider Nurse Practitioner Family; Visit Provider Internal Medicine Hematology & Oncology | DX: D50.9 Iron deficiency anemia, unspecified (principal); K59.00 Constipation, unspecified; Z87.440 Personal history of urinary (tract) infections; Z87.442 Personal history of urinary calculi | CPT/HCPCS: 96365; J1756; J7050 ==

== ENCOUNTER → 2025-02-13 | Outpatient (CLI) | payer MEDICARE, MEDICAID, SELFPAY | END | disposition home or self-care (01) | LOC: SWHD 13:17 | PROVIDERS: PCP Nurse Practitioner Family; Referring Provider Nurse Practitioner Family; Visit Provider Student in an Organized Health Care Education/Training Program | DX: L89.312 Pressure ulcer of right buttock, stage 2 (principal); G82.20 Paraplegia, unspecified; Z89.421 Acquired absence of other right toe(s); R60.0 Localized edema; E66.01 Morbid (severe) obesity due to excess calories | CPT/HCPCS: 97597 ==

== ENCOUNTER → 2025-02-26 | Outpatient (CLI) | payer MEDICARE, MEDICAID, SELFPAY ==
[2025-02-26 13:31] LABS: Basophils # (Auto) 0.0 Thou/mm3 (0.0-0.2); Basophils % (Auto) 0 % (0-2.5); Eosinophils # (Auto) 0.2 Thou/mm3 (0.0-0.5); Eosinophils % (Auto) 2 % (0-10); Hematocrit 40.4 % (36.0-46.0); Hemoglobin 12.3 g/dL (12.0-16.0); Immature Granulocytes Auto 0.02 Thou/mm3 (0.00-0.00); Immature Reticulocyte Fraction 21.1 % (3.0-15.9); Lymphocytes # (Auto) 0.7 Thou/mm3 (1.0-4.8); Lymphocytes % (Auto) 9 % (10-50); Mean Corpuscular HGB Conc 30.4 g/dl (31.0-37.0); Mean Corpuscular Hemoglobin 31.9 pg (25.0-35.0); Mean Corpuscular Volume 105 fL (80-100); Monocytes # (Auto) 0.5 Thou/mm3 (0.0-0.8); Monocytes % (Auto) 7 % (0-12); Neutrophils # (Auto) 5.6 Thou/mm3 (1.8-7.7); Neutrophils % (Auto) 81 % (37-80); Nucleated Red Blood Cell # 0.00 Thou/mm3 (0.00-0.00); Nucleated Red Blood Cell % 0 /100 WBC (0); Platelet Count 334 Thou/mm3 (140-440); RDW Standard Deviation 53.1 fL (36.4-46.3); Red Blood Count 3.86 Miln/mm3 (4.00-5.20); Reticulocyte % (Auto) 3.0 % (0.5-1.5); Reticulocyte Absolute Auto 114.3 Biln/L (25.0-75.0); Reticulocyte Hgb Content 35.0 pg (28.0-35.0); White Blood Count 7.0 Thou/mm3 (3.6-11.0)
[2025-02-26 13:57] LABS: Vitamin B12 644 pg/mL (211-911)
[2025-02-26 14:04] LABS: Alanine Aminotransferase 9 U/L (10-49); Albumin, Serum 4.4 gm/dL (3.5-5.0); Albumin/Globulin Ratio 1.1 (1.2-2.2); Alkaline Phosphatase 112 U/L (46-116); Anion Gap 12 (7-16); Aspartate Amino Transferase 11 U/L (0-34); BUN/Creatinine Ratio 25 Ratio (12-20); Bilirubin,Total 0.2 mg/dL (0.3-1.2); Blood Urea Nitrogen 40 mg/dL (9-23); Calcium 10.2 mg/dL (8.3-10.6); Calcium (Corrected) 10.2 mg/dL (8.5-10.1); Carbon Dioxide 18.3 mMol/L (20.0-31.0); Chloride 106 mMol/L (98-107); Creatinine (Component) 1.6 mg/dL (0.6-1.3); Globulin 4.0 gm/dL (2.3-3.5); Glucose 100 mg/dL (74-106); Osmolality,Calculated 281 (275-295); Potassium 4.5 mMol/L (3.4-5.1); Sodium 136 mMol/L (136-145); Total Protein 8.4 gm/dL (5.7-8.2); eGFR 39 See Note
[2025-02-26 14:05] LABS: Ferritin 444 ng/mL (7.3-270.7); Iron 38 mcg/dL (50-170); Percent Iron Saturation 15 % (20-55); Total Iron Binding Capacity 251 mcg/dL (250-425); Unsaturated Iron Binding 213 (225-295)
[2025-02-26 14:18] LABS: Folate > 24.00 ng/mL (>5.38)
== END | disposition home or self-care (01) ==
LOC: SLAB 12:00
PROVIDERS: PCP Nurse Practitioner Family; Referring Provider Nurse Practitioner Family; Visit Provider Internal Medicine
DX: N20.0 Calculus of kidney (principal); D50.0 Iron deficiency anemia secondary to blood loss (chronic)
CPT/HCPCS: 36415; 80053; 82607; 82728; 82746; 83540; 83550; 85025; 85046

== ENCOUNTER 2025-02-27 15:47 | Emergency (ER) | payer MEDICARE, MEDICAID, SELFPAY ==
[2025-02-27 15:48] VITALS: BMI 53.6
[2025-02-27 15:59] VITALS: BP 124/85; PULSE 108; RESP 17; TEMP 37.3; O2SAT 95
--- NOTE | 2025-02-27 16:14 | XR_ITS ---
Examination: CT abdomen and pelvis without contrast. Coronal 3-D reconstructions. Sagittal 2-D reconstructions. Date and time of exam:February 27, 2025, 1940 hrs., Comparison December 17, 2024 Indications: Abdominal pain constipation beginning one week ago, history kidney stones CTDI: vol (mGy): 20.2 DLP: (mGycm): 1158 Technique: Axial images of the abdomen have been obtained, 3 mm slice thickness Intravenous contrast material has not been administered. Low dose protocols were performed. One or more of the following dose reduction techniques were used; automated exposure control, adjustment of the mA and/or KV according to patient size, use of iterative reconstruction technique. Findings: No focal liver or splenic lesions. Absent gallbladder No pancreatic mass Stable 25 mm fat-containing adrenal nodule Multiple markedly fluid distended small bowel loops Multiple bilateral renal calcifications with severe renal scarring and severe left renal cortical thinning Moderate right hydronephrosis, 8mm proximal right ureteral calculus, Ileal urinary diversion with 6 mm millimeter calculus at the small bowel anastomosis Localized weakening of the anterior left pelvic wall Marked stool in the rectosigmoid with soft tissue ulceration extending from the anus posteriorly into the posterior pelvic wall Bilateral congenital hip dysplasia Impression: Small bowel obstruction, recommend Gastrografin small bowel series follow-up Multiple bilateral renal calcifications with severe renal scarring and severe left renal cortical thinning Moderate right hydronephrosis, 8mm proximal right ureteral calculus Small bowel urinary diversion with 6 mm 2 mm calculi at the small bowel anastomosis Large amounts of stool in the rectosigmoid Soft tissue ulceration extending from the anus posteriorly the skin surface
--- NOTE | 2025-02-27 16:15 | PD.EDRME ---
Rapid Medical Screening Exam RME Arrival date/time: 02/27/25 15:47 49-year-old female presents emergency department today for complaint of abdominal pain vomiting and constipation Chief Complaint: Nausea/Vomiting/Diarrhea Vital signs: Vital Signs Temperature 99.1 F 02/27/25 15:59 Pulse Rate 108 H 02/27/25 15:59 Respiratory Rate 17 02/27/25 15:59 Blood Pressure 124/85 H 02/27/25 15:59 Pulse Oximetry (%) 95 02/27/25 15:59 Oxygen Delivery Method Room Air 02/27/25 15:59
[2025-02-27 16:35] LABS: Basophils # (Auto) 0.0 Thou/mm3 (0.0-0.2); Basophils % (Auto) 0 % (0-2.5); Eosinophils # (Auto) 0.1 Thou/mm3 (0.0-0.5); Eosinophils % (Auto) 1 % (0-10); Hematocrit 40.1 % (36.0-46.0); Hemoglobin 12.5 g/dL (12.0-16.0); Immature Granulocytes Auto 0.02 Thou/mm3 (0.00-0.00); Lymphocytes # (Auto) 1.1 Thou/mm3 (1.0-4.8); Lymphocytes % (Auto) 13 % (10-50); Mean Corpuscular HGB Conc 31.2 g/dl (31.0-37.0); Mean Corpuscular Hemoglobin 31.8 pg (25.0-35.0); Mean Corpuscular Volume 102 fL (80-100); Monocytes # (Auto) 0.4 Thou/mm3 (0.0-0.8); Monocytes % (Auto) 5 % (0-12); Neutrophils # (Auto) 6.8 Thou/mm3 (1.8-7.7); Neutrophils % (Auto) 81 % (37-80); Nucleated Red Blood Cell # 0.00 Thou/mm3 (0.00-0.00); Nucleated Red Blood Cell % 0 /100 WBC (0); Platelet Count 345 Thou/mm3 (140-440); RDW Standard Deviation 51.9 fL (36.4-46.3); Red Blood Count 3.93 Miln/mm3 (4.00-5.20); White Blood Count 8.5 Thou/mm3 (3.6-11.0)
[2025-02-27 17:26] LABS: Alanine Aminotransferase 8 U/L (10-49); Albumin, Serum 4.2 gm/dL (3.5-5.0); Albumin/Globulin Ratio 1.1 (1.2-2.2); Alkaline Phosphatase 106 U/L (46-116); Anion Gap 12 (7-16); Aspartate Amino Transferase 11 U/L (0-34); BUN/Creatinine Ratio 22 Ratio (12-20); Bilirubin,Total < 0.2 mg/dL (0.3-1.2); Blood Urea Nitrogen 37 mg/dL (9-23); Calcium 10.0 mg/dL (8.3-10.6); Calcium (Corrected) 10.0 mg/dL (8.5-10.1); Carbon Dioxide 21.3 mMol/L (20.0-31.0); Chloride 105 mMol/L (98-107); Creatinine (Component) 1.7 mg/dL (0.6-1.3); Estimated Creatinine Clearance 48.8 mL/min (>60); Globulin 4.0 gm/dL (2.3-3.5); Glucose 104 mg/dL (74-106); Lipase 23 U/L (12-53); Osmolality,Calculated 284 (275-295); Potassium 4.9 mMol/L (3.4-5.1); Sodium 138 mMol/L (136-145); Total Protein 8.2 gm/dL (5.7-8.2); eGFR 37 See Note
--- NOTE | 2025-02-27 18:39 | EDNOTE_ITS ---
Nausea/Vomit./Diarrhea-RME/HPI General Chief complaint: Nausea/Vomiting/Diarrhea Stated complaint: VOMITING x 1 DAY, CONTIPATION x 7 DAYS Time Seen by Provider: 02/27/25 16:18 Arrival date/time: 02/27/25 15:47 RME / HPI RME / HPI Narrative: 02/27/25 15:47 49-year-old female presents emergency department today for complaint of abdominal pain vomiting and constipation -------- See [facility] for Dr. Crowe's HPI documentation. Related Data Home Medications ?Medication ?Instructions ?Recorded ?Confirmed albuterol sulfate 90 mcg/actuation 2 puff inhalation Q 4HR PRN 05/25/23 01/17/25 aerosol inhaler Shortness Of Breath cholecalciferol (vitamin D3) 125 125 mcg PO QDAY 05/2501/17/25 mcg (5,000 unit) tablet (Vitamin D3) escitalopram oxalate 20 mg tablet 20 mg PO QDAY 01/17/25 (Lexapro) fluticasone propionate 50 1 spray intranasal BID 05/2501/17/25 mcg/actuation nasal spray,suspension loratadine 10 mg capsule 10 mg PO QDAY 05/25/2301/17 potassium chloride 15 mEq 15 meq PO BID 05/25/2301/17 tablet,extended release(part/cryst) docusate sodium 100 mg capsule 100 mg PO 1XD PRN Const ipation 09/25/23 01/17/25 lactulose 10 gram/15 mL oral 15 - 30 ml PO PRN PRN Con stipation 09/25/23 01/17/25 solution linaclotide 145 mcg capsule 145 mcg PO QAM 02/23/24 (Linzess) mupirocin 2 % topical ointment 1 applic topical DAILY 04/18/24 01/17/25 polyethylene glycol 3350 17 4 g PO QDAY 07/19/2401/17 gram/dose oral powder (Miralax) zolpidem 10 mg tablet 10 mg PO QDAY 12/18/2401/17 multivitamin 1 tab PO QDAY 01/17/2501/17 Previous Rx's ?Medication ?Instructions ?Recorded ferrous sulfate 325 mg (65 mg 325 mg PO Q OTHER DAY 1 month #15 02/24/24 iron) tablet tabs ciprofloxacin HCl 500 mg tablet 500 mg PO QDAY #8 tabs 12/20/24 potas and sod citrate-citric acid 30 ml PO QDAY #473 m L 12/20/24 550 mg-500 mg-334 mg/5 mL oral soln Allergies Allergy/AdvReac Type Severity Reaction Status Date / Time vancomycin Allergy Severe RASH/ITCHIN Verified 02/27/25 15:50 G Review of Systems Review of Systems Systems Reviewed: All systems reviewed, normal except as documented ED Exam Narrative Physical exam: See [facility] for Dr. Crowe's physical exam documentation. Course Quality Measures none Orders Category Date Time Status Insert NG / OG tube NOW Care 02/28/25 02:04 Completed Saline [Insert IV] NOW Care 02/27/25 21:[address] abdomen pelvis wo con Stat Exams 02/27/25 16:14 Completed XR chest 1V post procedure Stat Exams 02/28/25 02:56 Completed Amylase Stat Lab 02/27/25 16:24 Completed CBC Stat Lab 02/27/25 16:24 Completed Comprehensive Metabolic Panel Stat Lab 02/27/25 16:24 Completed Lipase Stat Lab 02/27/25 16:24 Completed Magnesium Stat Lab 02/27/25 16:24 Completed UA, C/S IF [Urinalysis, C/S if Indicated] Stat Lab 02/27/25 19:33 Completed Urine Culture Stat Lab 02/27/25 19:33 Completed Ketorolac Inj [Toradol Inj] Med 02/27/25 21:42 Discontinued 30 mg IVP X1 ONE Morphine* Inj Med 02/27/25 21:42 Discontinued 4 mg IV X1 ONE Ondansetron Inj [Zofran Inj] Med 02/27/25 21:58 Discontinued 4 mg IVP X1 ONE Ondansetron Inj [Zofran Inj] Med 02/28/25 02:04 Discontinued 4 mg IVP X1 ONE Sodium Chloride 0.9% 1000 ml [Ns] 1,000 ml Med 02/27/25 23:09 Discontinued IV 500 mls/hr Sodium Chloride 0.9% 1000 ml [Ns] 1,000 ml Med 02/27/25 21:42 Discontinued IV 999 mls/hr cefTRIAXone/D5w 1gm IV premix [Rocephin/D5w 1gm IV Med 02/27/25 21:15 Discontinued premix] 1 gm in 50 ml IV X1 Vital Signs Vital signs: Vital Signs Temperature 99.1 F 02/27/25 15:59 Pulse Rate 108 H 02/27/25 15:59 Respiratory Rate 17 02/27/25 15:59 Blood Pressure 124/85 H 02/27/25 15:59 Pulse Oximetry (%) 95 02/27/25 15:59 Oxygen Delivery Method Room Air 02/27/25 15:59 Nausea/Vomiting/Diarrhea MDM Narrative MDM Narrative:: This section includes all my notes and documentations, including HPI, PE, and ED course. Maldonado Crowe MD HPI: 49yo female with a history of spina bifida (w/c bound) here with constipation for the last few days. With nausea and vomiting. PSH includes cholecystectomy and hysterectomy. No other complaints reported. ROS: All negative except as documented in HPI. Physical Exam: General: Alert and oriented. Appears uncomfortable. Eyes: Conjunctivae and lids clear. ENT: No nasal congestion. Neck: Supple. Heart: RRR. Lungs: No respiratory distress. Good air movement. No rhonchi, wheezing, rales. Abdomen: Soft with diffuse tenderness, difficult to localize. Decreased bowel sounds. No distension. No rebound or guarding. Skin: Warm and dry. Neuro: Alert and oriented X 3. I reviewed all diagnostic test results. My review of the CT abdomen pelvis report is small bowel obstruction and 8 mm proximal right ureteral calculus. Blood tests unremarkable. UA remarkable for positive leukocyte esterase, 5 RBCs, 36 WBCs, 2+ bacteria. At this point, diagnoses include: Small bowel obstruction Kidney stone UTI Treatment here included: Rocephin IV fluid Toradol Morphine Zofran I discussed the case with Dr. Barrera ([facility]). About the presentation and exam and diagnostics and treatments here. And need of further care in the hospital there. Will accept the patient. Maldonado Crowe MD Patient data External records reviewed:: [facility] previous records (Per chart review, patient was admitted here on 12/17/24 for JOSEPH.) Clinical information provided by:: patient Social determinants that could affect healthcare access:: none Patient has the following chronic illnesses:: spina bifida [wheelchair-bound], neurogenic bladder s/p urostomy, chronic decubitus ulcers How is presenting disease/condition affected by chronic disease/condition?: exacerbated by Evaluation data The following diagnostics were reviewed and interpreted by me:: lab results and radiology exam(s) Lab and/or radiology exams considered but not ordered:: none Interpretation Summary: I reviewed all diagnostic test results. My review of the CT abdomen pelvis report is small bowel obstruction and 8 mm proximal right ureteral calculus. Blood tests unremarkable. UA remarkable for positive leukocyte esterase, 5 RBCs, 36 WBCs, 2+ bacteria. Medications / Prescriptions Medications / Prescriptions considered but not ordered:: none Medication administrations:: Medication Administration History Discontinued Medications Ceftriaxone Sodium/Dextrose (Rocephin/D5w 1gm Iv Premix) 1 gm in 50 mls @ 100 mls/hr IV X1 ONE Stop: 02/27/25 21:44 Last Infusion: 02/27/25 22:18 Dose: Infused Documented By: Admin: 02/27/25 21:44 Dose: 100 mls/hr Documented By: ROSIE Sodium Chloride (Ns) 1,000 mls @ 999 mls/hr IV .Q1H1M ONE Stop: 02/27/25 22:42 Last Infusion: 02/28/25 00:21 Dose: Infused Documented By: Admin: 02/27/25 22:18 Dose: 999 mls/hr Documented By: MYKE Sodium Chloride (Ns) 1,000 mls @ 500 mls/hr IV .Q2H ONE Stop: 02/28/25 01:08 Last Infusion: 02/28/25 02:26 Dose: Infused Documented By: Admin: 02/27/25 23:46 Dose: 500 mls/hr Documented By: ROSIE Ketorolac Tromethamine (Ketorolac Inj 30 Mg/Ml Vial) 30 mg IVP X1 ONE Stop: 02/27/25 21:43 Last Admin: 02/27/25 22:17 Dose: 30 mg Documented By: ROSIE Morphine Sulfate (Morphine Sulf Inj 4 Mg/Ml Vial) 4 mg IV X1 ONE Stop: 02/27/25 21:43 Last Admin: 02/27/25 22:17 Dose: 4 mg Documented By: ROSIE Ondansetron HCl (Ondansetron Inj 2 Mg/Ml Inj 2 Ml) 4 mg IVP X1 ONE; Protocol Stop: 02/27/25 21:59 Last Admin: 02/27/25 22:17 Dose: 4 mg Documented By: MYKE Ondansetron HCl (Ondansetron Inj 2 Mg/Ml Inj 2 Ml) 4 mg IVP X1 ONE; Protocol Stop: 02/28/25 02:05 Last Admin: 02/28/25 02:26 Dose: 4 mg Documented By: MYKE Rocephin, IV fluid, Toradol, Morphine, Zofran Consultations Consultation(s) initiated? (list below): Yes Consultation #1 (Physician, Specialty, Details): I discussed the case with Dr. Barrera ([facility]). About the presentation and exam and diagnostics and treatments here. And need of further care in the hospital there. Will accept the patient. Diagnosis Nausea Differential Diagnosis: traveler's diarrhea, food poisoning, gastroenteritis, clostridium difficile infection, drug-induced nausea and vomiting and dehydration Most likely diagnosis given after review of the tests above:: Small bowel obstruction Kidney stone UTI Admission Indicated Admission indicated?: not indicated Explain why admission is indicated or not indicated:: No Urology here Admission Request Was there a request for admission?: No Disposition Plan Disposition Plan: Transfer ([facility]) Discharge Plan Plan Patient Disposition: [facility] Acute Care [facility] Facility Pt Being Transferred to: [facility] Service Needed for Transfer: Urology Prescriptions/Referrals Prescriptions/Med Rec: No Action polyethylene glycol 3350 [Miralax] 17 gram/dose powder 4 g PO QDAY multivitamin Tablet 1 tab PO QDAY albuterol sulfate 90 mcg/actuation Hfa Aerosol Inhaler 2 puff INHALATION Q4HR PRN (Reason: Shortness Of Breath) fluticasone propionate 50 mcg/actuation [place],Suspension 1 spray INTRANASAL BID Rx Instructions: administer into each nostril escitalopram oxalate [Lexapro] 20 mg Tablet 20 mg PO QDAY potassium chloride 15 mEq Tablet,Er Particles/Crystals 15 meq PO BID cholecalciferol (vitamin D3) [Vitamin D3] 125 mcg (5,000 unit) Tablet 125 mcg PO QDAY loratadine 10 mg Capsule 10 mg PO QDAY lactulose 10 gram/15 mL solution 15 - 30 ml PO PRN PRN (Reason: Constipation) Patient Comments: TAKE 15 ML TO 30 ML BY MOUTH DAILY NEEDED FOR CONSTIPATION docusate sodium 100 mg capsule 100 mg PO 1XD PRN (Reason: Constipation) Patient Comments: TAKE ONE CAPSULE BY MOUTH EVERY DAY NEEDED Linzess 145 mcg capsule 145 mcg PO QAM ferrous sulfate 325 mg (65 mg iron) Tablet 325 mg PO Q OTHER DAY 30 Days Qty: 15 0RF mupirocin 2 % ointment 1 applic TOPICAL DAILY Patient Comments: APPLY TO THE AFFECTED AREA(S) EVERY DAY FOR INFECTION Rx Instructions: calcium alginate, adaptic and ABD pad zolpidem 10 mg tablet 10 mg PO QDAY Patient Comments: TAKE ONE TABLET BY MOUTH AT BEDTIME FOR SLEEP pot,sodium citrate-citric acid 550-500-334 mg/5 mL solution 30 ml PO QDAY Qty: 473 0RF Rx Instructions: Take 30ml once daily ciprofloxacin HCl 500 mg tablet 500 mg PO QDAY Qty: 8 0RF Rx Instructions: Take 1 tablet once daily for 8 days Referrals: Ashley Cheek PA-C [Primary Care Provider, Family Practice] - In 1 week Problem List Clinical Impression: Small bowel obstruction, Kidney stone, UTI (urinary tract infection) Patient/Caregiver Discharge Instructions Print Language: Greek Stand Alone Forms: Teresa Award Info., Patient Portal Info Letter
[2025-02-27 19:22] LABS: Amylase 44 U/L (30-118); Magnesium 2.1 mg/dL (1.6-2.6)
[2025-02-27 19:29] VITALS: BP 130/79; PULSE 105; RESP 18; TEMP 37.3; O2SAT 95
[2025-02-27 19:47] LABS: Collection Type, Urine Clean Catch
[2025-02-27 20:04] LABS: Bacteria,Urine 2+; Bilirubin,Urine Negative (Negative); Blood,Urine 1+ (Negative); Budding Yeast,Urine Present; Clarity,Urine Turbid (Clear/Hazy); Glucose, Urine Negative (Negative); Ketones,Urine Negative (Negative); Leukocyte Esterase,Urine Positive (Negative); Nitrite,Urine Negative (Negative); PH,Urine 7.5 (5.0-7.0); Protein,Urine 2+ (Neg - Trace); RBC,Urine 5 /hpf (0-3); Specific Gravity,Urine 1.009 (1.001-1.035); Squamous Epithelial Cell,Urine 1 /hpf (0-5); Urobilinogen,Urine Negative mg/dL (0.0-1.0); WBC,Urine 36 /hpf (0-5)
[2025-02-27 20:05] LABS: Color,Urine Lt-Orange (Lt Yel-Yel); Culture Indicated,Urine Yes
[2025-02-27] MEDS: cefTRIAXone/D5w 1gm IV premix 1 GM/50 ML BAG IV (21:44)
[2025-02-27 22:08] VITALS: BP 161/96; PULSE 106; RESP 18; TEMP 37.2; O2SAT 95
[2025-02-27] MEDS: MORPHINE SULF INJ 4 MG/ML VIAL IV (22:17)
[2025-02-27] MEDS: KETOROLAC INJ 30 MG/ML VIAL IVP (22:17)
[2025-02-27] MEDS: ONDANSETRON INJ 2 MG/ML INJ 2 ML 4 MG IVP (22:17)
[2025-02-27] MEDS: SODIUM CHLORIDE 0.9% 1000 ML 1,000 ML 999 ML IV (22:18)
--- NOTE | 2025-02-27 22:35 | PC.NURSE ---
CALLED [facility], NO UROLOGY SERVICE.
--- NOTE | 2025-02-27 22:36 | PC.NURSE ---
CALLED [facility] TRANSFER MONTROSE, ERYN DICKSON TALKED TO DR. ESPINOZA.
[2025-02-27] MEDS: SODIUM CHLORIDE 0.9% 1000 ML 1,000 ML 500 ML IV (23:46)
[2025-02-28 00:26] VITALS: BP 151/81; PULSE 95; RESP 19; TEMP 37.2; O2SAT 95
--- NOTE | 2025-02-28 00:50 | PC.NURSE ---
[facility] DECLINED PT SAYINGH WE HAD IR CAPIBILITY.
--- NOTE | 2025-02-28 00:51 | PC.NURSE ---
CALLED [facility] AND FAXED INFORMATION ABOUT PT NEED OF TRANSFER.
--- NOTE | 2025-02-28 00:59 | PC.NURSE ---
CALLED [facility] AND FAXED INFORMATION FOT NEED OF TRANSPORT.
[2025-02-28] MEDS: ONDANSETRON INJ 2 MG/ML INJ 2 ML 4 MG IVP (02:26)
--- NOTE | 2025-02-28 02:56 | XR_ITS ---
Examination: AP chest single view Technique one AP portable semiupright chest single view Date and time: February 28, 2025, 0317 hrs., Comparison December 17, 2024 Indications: Post orogastric tube placement. Findings: Orogastric tube in the stomach, the tip is below the level of the film Mild enlargement cardiac contour Reduced inspiratory effort No pulmonary edema or lobar pneumonia Impression: The orogastric tube is in the stomach, the tip is below the level film
[2025-02-28 02:57] VITALS: BP 141/81; PULSE 99; RESP 18; TEMP 37.2; O2SAT 93
--- NOTE | 2025-02-28 03:34 | PC.NURSE ---
CALLED REPORT TO [facility] SPOKE TO MIN DICKSON.
== END 2025-02-28 03:36 | disposition short-term general hospital (02) ==
PROVIDERS: Nurse Practitioner Primary Care; Emergency Provider Emergency Medicine; PCP Physician Assistant
DX: K56.609 Unspecified intestinal obstruction, unspecified as to partial versus complete obstruction (principal); N39.0 Urinary tract infection, site not specified; N20.2 Calculus of kidney with calculus of ureter
CPT/HCPCS: 36415; 74176; 80053; 81001; 82150; 83690; 83735; 85025; 87077; 87086; 87186; 96361; 96365; 96375; 96376; 99284; J0696; J1885; J2270; J2405; J7030

== ENCOUNTER 2025-03-17 17:12 | Emergency (ER) | payer MEDICARE, MEDICAID, SELFPAY ==
--- NOTE | 2025-03-17 17:28 | XR_ITS ---
Examination: CT abdomen and pelvis without contrast. Coronal 3-D reconstructions. Sagittal 2-D reconstructions. Date and time of exam:March 17, 2025, 1903 hrs., Comparison February 27, 2025. Indications: Nephrostomy tube stopped draining, lower abdominal pain, history kidney stones CTDI: vol (mGy): 20.7 DLP: (mGycm): 1242 Technique: Axial images of the abdomen have been obtained, 3 mm slice thickness Intravenous contrast material has not been administered. Low dose protocols were performed. One or more of the following dose reduction techniques were used; automated exposure control, adjustment of the mA and/or KV according to patient size, use of iterative reconstruction technique. Findings: No focal liver or splenic lesions Absent gallbladder No pancreatic mass 25 mm fat-containing left adrenal adenoma Severely atrophic scarred left kidney nephrostomy tube satisfactory position Prominent right renal calcifications Nephrostomy tip is in the renal pelvis with mild to moderate right hydronephrosis, 5 mm 4 mm proximal right ureteral calculi 3 mm distal, 9 mm distal ureteral calculi with ileal diversion Abundant stool in the colon Soft tissue defect in the right buttock region with osteomyelitis right ischium No fluid-filled drainable abscess Impression: Severely scarred atrophic left kidney with satisfactory position nephrostomy tube Right nephrostomy tip is in the renal pelvis with mild to moderate right hydronephrosis, multiple calculi in the right ureter extending to the ileal diversion, recommend right nephrostogram
--- NOTE | 2025-03-17 17:30 | PD.EDADULT ---
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 By urologist at [facility] in [place]. Patient noticed this morning at approximately 8 AM that the right nephrostomy tube had stopped draining. Patient is complaining of very mild right pannus/abdomen pain has been ongoing for the past several days. Patient denies pain nausea vomiting headache shortness of breath or difficulty breathing. The patient has a history of spina bifida is nonambulatory, however is awake alert oriented. Vital signs reported by EMS are stable. Patient denies any pain. Related Data Home Medications ?Medication ?Instructions ?Recorded ?Confirmed albuterol sulfate 90 mcg/actuation 2 puff inhalation Q4HR PRN 05/25/23 01/17/25 aerosol inhaler Shortness Of Breath cholecalciferol (vitamin D3) 125 125 mcg PO QDAY 05/25/23 01/17/25 mcg (5,000 unit) tablet (Vitamin D3) escitalopram oxalate 20 mg tablet 20 mg PO QDAY 05/25/23 01/17/25 (Lexapro) fluticasone propionate 50 1 spray intranasal BID 05/25/23 01/17/25 mcg/actuation nasal spray,suspension loratadine 10 mg capsule 10 mg PO QDAY 05/25/23 01/17/25 potassium chloride 15 mEq 15 meq PO BID 05/25/23 01/17/25 tablet,extended release(part/cryst) docusate sodium 100 mg capsule 100 mg PO 1XD PRN Constipation 09/25/23 01/17/25 lactulose 10 gram/15 mL oral 15 - 30 ml PO PRN PRN Constipation 09/25/23 01/17/25 solution linaclotide 145 mcg capsule 145 mcg PO QAM 02/23/24 01/17/25 (Linzess) mupirocin 2 % topical ointment 1 applic topical DAILY 04/18/24 01/17/25 polyethylene glycol 3350 17 4 g PO QDAY 07/19/24 01/17/25 gram/dose oral powder (Miralax) zolpidem 10 mg tablet 10 mg PO QDAY 12/18/24 01/17/25 multivitamin 1 tab PO QDAY 01/17/25 01/17/25 Previous Rx's ?Medication ?Instructions ?Recorded ferrous sulfate 325 mg (65 mg 325 mg PO Q OTHER DAY 1 month #15 02/24/24 iron) tablet tabs ciprofloxacin HCl 500 mg tablet 500 mg PO QDAY #8 tabs 12/20/24 potas and sod citrate-citric acid 30 ml PO QDAY #473 mL 12/20/24 550 mg-500 mg-334 mg/5 mL oral soln Allergies Allergy/AdvReac Type Severity Reaction Status Date / Time vancomycin Allergy Severe RASH/ITCHIN Verified 02/27/25 15:50 G Review of Systems Review of Systems Narrative Review of Systems: GEN: No fever, no chills, no weight loss EYES: No discharge, no visual changes, no pain HEENT: No ear pain, no congestion, no sore throat PULM: No shortness of breath, no cough, no congestion CV: No chest pain, no dyspnea on exertion, no palpitations GI: No nausea, no vomiting, no diarrhea, no pain, no constipation : No frequency, no urgency, no dysuria MUSC/SKEL: No joint pain, no back pain SKIN: No rash PSYCH: No hallucinations, no depression HEME/LYMPH: No easy bleeding or bruising tendencies NEURO: No weakness, no headache Past Medical History Past Medical History NEUROLOGIC: Positive Neurological Disorders and Spina Bifida; Negative Seizures CARDIAC: Positive Cardiac Disorders (irregular heart rate), Cardiac Arrhythmia (yrs ago), Angina, Peripheral Vascular Disease and Cellulitis (past); Negative Congestive Heart Failure RESPIRATORY: Negative Chronic Obstructive Pulmonary Disease (COPD) or Asthma GASTROINTESTINAL: Positive Gastrointestinal Disorders, Obstructive Bowel, Gastroesophageal Reflux Disease and Obesity; Negative Hepatitis or Gall Bladder Disease GENITOURINARY: Positive Genitourinary Disorders and Kidney Stones; Negative Renal Disease REPRODUCTIVE: Negative Previous Pregnancies MUSCULOSKELETAL: Positive Musculoskeletal Disorders (open wound on buttocks) and Osteomyelitis (Right toes in the past) ENDOCRINE: Negative Endocrine Disorders, Diabetes Mellitus Type 1 or Diabetes Mellitus Type 2 HEMATOLOGIC: Positive Blood Disorders and Anemia; Negative Sickle Cell Disease PSYCHO/SOCIAL: Positive Anxiety OTHER HISTORY: Positive Hospitalization (surgery), Autoimmune Disease, MRSA (RIGHT HEEL 2007), Chicken Pox and Measles; Negative Shingles, Falls, Blood Transfusions, Blood Transfusion Reaction, Anesthesia Reactions, Chemotherapy, Radiation Therapy, Human Immunodeficiency Virus (HIV), Mumps, Rubella (Nigerien Measles), Pertussis, Clostridium Difficile or Cancer Family History FAMILY HISTORY: Positive Family Surgery; Negative Family Psychiatric Problems, Family Respiratory Disorders, Family Cardiac Disorders, Family Gastrointestinal Problems, Family Cancer or Family Anesthesia Reaction Surgical History SURGICAL: Positive Abdominal Surgery, Nephrectomy, Amputation, Brain Shunt, Lumpectomy (right breast) and Hysterectomy; Negative Oral Surgery Social History SMOKING STATUS: Never smoker SUBSTANCE USE: does not use ED Exam Narrative Physical exam: [General: Morbidly obese appears not in any acute distress Head normocephalic HEENT: Within acceptable limits Neck is supple nontender Chest equal chest rise nontender to palpation Respiratory: Clear to auscultation no wheezes crackles or rubs CV: Rate rhythm is regular no murmurs rubs or clicks Abdomen is distended secondary to body habitus soft nontender no masses positive bowel sounds all 4 quadrants Back: No CVA tenderness no spinous process tenderness from cervical spine thoracic and lumbar spine Skin: Intact no petechiae rash induration ulceration or crepitus Extremities: Moving all extremity against resistance cap refill less than 2 seconds neurosensory intact Neuro: Awake alert oriented x3 Glascow coma 15 no focal deficits] Course Course Course Narrative: Patient's case clinical presentation laboratory results was discussed with Dr. Cheung, urologist, at [facility], who states because the nephrostomy tube is so new we can attempt to flush it with sterile saline approximately 10 cc to see if it drains otherwise given the presentation on the ED CT the patient can follow-up outpatient in their clinic. Pt case discussed with Dr Vizcaino prior to disposition Quality Measures none Orders Category Date Time Status Bedside Blood Glucose NOW Care 03/17/25 20:21 Active EKG (ED ONLY) *Do not use* NOW Care 03/17/25 18:[address] abdomen pelvis wo con Stat Exams 03/17/25 17:28 Completed EKG (ED Only) Stat Exams 03/17/25 18:33 Draft CBC Stat Lab 03/17/25 17:48 Completed CMP [Comprehensive Metabolic Panel] Stat Lab 03/17/25 17:48 Completed Potassium Stat Lab 03/17/25 18:53 Completed Urinalysis, C/S if Indicated Stat Lab 03/17/25 19:31 Completed Urine Culture Stat Lab 03/17/25 19:31 Received Calcium Gluconate 10% Inj Med 03/17/25 20:10 Discontinued 1 gm IV X1 ONE Dextrose 50% Syr [D50w Syringe Abboject] Med 03/17/25 20:11 Discontinued 50 ml IVP X1 ONE Dextrose 50% Syr [D50w Syringe Abboject] Med 03/17/25 20:16 Discontinued 50 ml IVP X1 ONE Insulin Regular Med 03/17/25 20:11 Discontinued 5 unit IV X1 ONE Vital Signs Vital signs: Vital Signs Temperature 98.8 F 03/17/25 18:05 Pulse Rate 88 03/17/25 18:05 Respiratory Rate 18 03/17/25 18:05 Blood Pressure 133/83 H 03/17/25 18:05 Pulse Oximetry (%) 95 03/17/25 18:05 Oxygen Delivery Method Room Air 03/17/25 18:05 PROCEDURES: Procedure Comment Under sterile conditions, nephrostomy tube was flushed with 10 cc of sterile normal saline. Immediately there was return without complication of hazy urine. After 10 minutes observation the patient's bag is filling with yellow urine. Will discharge the patient home Discharge Plan Plan Patient Disposition: HOME (Self Care) Patient condition on transfer: Stable Prescriptions/Referrals Prescriptions/Med Rec: No Action polyethylene glycol 3350 [Miralax] 17 gram/dose powder 4 g PO QDAY multivitamin Tablet 1 tab PO QDAY albuterol sulfate 90 mcg/actuation Hfa Aerosol Inhaler 2 puff INHALATION Q4HR PRN (Reason: Shortness Of Breath) fluticasone propionate 50 mcg/actuation [place],Suspension 1 spray INTRANASAL BID Rx Instructions: administer into each nostril escitalopram oxalate [Lexapro] 20 mg Tablet 20 mg PO QDAY potassium chloride 15 mEq Tablet,Er Particles/Crystals 15 meq PO BID cholecalciferol (vitamin D3) [Vitamin D3] 125 mcg (5,000 unit) Tablet 125 mcg PO QDAY loratadine 10 mg Capsule 10 mg PO QDAY lactulose 10 gram/15 mL solution 15 - 30 ml PO PRN PRN (Reason: Constipation) Patient Comments: TAKE 15 ML TO 30 ML BY MOUTH DAILY NEEDED FOR CONSTIPATION docusate sodium 100 mg capsule 100 mg PO 1XD PRN (Reason: Constipation) Patient Comments: TAKE ONE CAPSULE BY MOUTH EVERY DAY NEEDED Linzess 145 mcg capsule 145 mcg PO QAM ferrous sulfate 325 mg (65 mg iron) Tablet 325 mg PO Q OTHER DAY 30 Days Qty: 15 0RF mupirocin 2 % ointment 1 applic TOPICAL DAILY Patient Comments: APPLY TO THE AFFECTED AREA(S) EVERY DAY FOR INFECTION Rx Instructions: calcium alginate, adaptic and ABD pad zolpidem 10 mg tablet 10 mg PO QDAY Patient Comments: TAKE ONE TABLET BY MOUTH AT BEDTIME FOR SLEEP pot,sodium citrate-citric acid 550-500-334 mg/5 mL solution 30 ml PO QDAY Qty: 473 0RF Rx Instructions: Take 30ml once daily ciprofloxacin HCl 500 mg tablet 500 mg PO QDAY Qty: 8 0RF Rx Instructions: Take 1 tablet once daily for 8 days Referrals: Jacobo Sher[facility]MD [Primary Care Provider, Family Practice] - In 1 week Problem List Clinical Impression: Attention to nephrostomy Patient/Caregiver Discharge Instructions Other Activity Instructions:: Make sure you right nephrostomy tube drains on a regular basis follow-up with urologist at [facility] who placed urostomy tubes. If you experience high fever or additional complications follow-up at the closest emergency room available. Education Materials: Percutaneous Nephrostomy Dc Print Language: Tanzanian Stand Alone Forms: Teresa Award Info., Patient Portal Info Letter TANK/STACIA Supervising Physician DACIA Supervising Physician: Ernie Mejia ENP [facility] Clinical Information Provided by: patient and EMS [facility] Meds/Rx considered, not ordered None Labs/Rad/Tests considered, not ordered None Chronic Illness/Social Conditions Explain: Spina bifida, nonambulatory renal calculus Labs Labs: interpreted by mo Lab(s) Interpretation(s): CBC shows no leukocytosis chronic but stable anemia with a hemoglobin of 10.8 hematocrit of 35.1. No thrombocytopenia CMP shows a sodium 135 potassium is 6.1 BUN of 24 creatinine 1.5 note: BUN and creatinine are unchanged from past draws. I am not sure the potassium is accurate we will redraw to confirm. No other transaminitis or T. bili elevation. Repeat potassium at 5.5. Urine is trace leukocyte esterase positive 4 RBCs, 18 WBCs. Rare bacteria no squamous epithelia nitrite negative. Imaging Imaging Interpretation(s): Abdomen pelvis without contrast shows the right nephrostomy tube within the renal pelvis and multiple stones. Medication Administration(s) Medication Administration History Discontinued Medications Calcium Gluconate (Calcium Gluconate 10% Inj 1 Gm/10 Ml Vial) 1 gm IV X1 ONE Stop: 03/17/25 20:11 Last Admin: 03/17/25 20:38 Dose: 1 gm Documented By: AIDA Dextrose (Dextrose 50%-Water Inj 50 Ml Syringe) 50 ml IVP X1 ONE Stop: 03/17/25 20:12 Last Admin: 03/17/25 20:50 Dose: Not Given Documented By: ROSIE Non-Admin Reason: Cancelled by Provider Dextrose (Dextrose 50%-Water Inj 50 Ml Syringe) 50 ml IVP X1 ONE Stop: 03/17/25 20:17 Last Admin: 03/17/25 20:38 Dose: 50 ml Documented By: AIDA Insulin Human Regular (Insulin Hum Regular 1 Unit/0.01 Ml (Per Unit)) 5 unit IV X1 ONE Stop: 03/17/25 20:12 Last Admin: 03/17/25 20:38 Dose: 5 unit Documented By: AIDA Co-signed By: ROSIE
[2025-03-17 17:54] LABS: Basophils # (Auto) 0.0 Thou/mm3 (0.0-0.2); Basophils % (Auto) 0 % (0-2.5); Eosinophils # (Auto) 0.3 Thou/mm3 (0.0-0.5); Eosinophils % (Auto) 4 % (0-10); Hematocrit 35.1 % (36.0-46.0); Hemoglobin 10.8 g/dL (12.0-16.0); Immature Granulocytes Auto 0.01 Thou/mm3 (0.00-0.00); Lymphocytes # (Auto) 1.5 Thou/mm3 (1.0-4.8); Lymphocytes % (Auto) 21 % (10-50); Mean Corpuscular HGB Conc 30.8 g/dl (31.0-37.0); Mean Corpuscular Hemoglobin 32.0 pg (25.0-35.0); Mean Corpuscular Volume 104 fL (80-100); Monocytes # (Auto) 0.4 Thou/mm3 (0.0-0.8); Monocytes % (Auto) 5 % (0-12); Neutrophils # (Auto) 5.0 Thou/mm3 (1.8-7.7); Neutrophils % (Auto) 70 % (37-80); Nucleated Red Blood Cell # 0.00 Thou/mm3 (0.00-0.00); Nucleated Red Blood Cell % 0 /100 WBC (0); Platelet Count 356 Thou/mm3 (140-440); RDW Standard Deviation 52.1 fL (36.4-46.3); Red Blood Count 3.38 Miln/mm3 (4.00-5.20); White Blood Count 7.1 Thou/mm3 (3.6-11.0)
[2025-03-17 18:05] VITALS: BP 133/83; PULSE 88; RESP 18; TEMP 37.1; O2SAT 95
[2025-03-17 18:21] VITALS: PULSE 83; RESP 16; O2SAT 100
[2025-03-17 18:29] LABS: Anion Gap 6 (7-16); BUN/Creatinine Ratio 16 Ratio (12-20); Blood Urea Nitrogen 24 mg/dL (9-23); Carbon Dioxide 25.1 mMol/L (20.0-31.0); Chloride 104 mMol/L (98-107); Creatinine (Component) 1.5 mg/dL (0.6-1.3); Glucose 91 mg/dL (74-106); Sodium 135 mMol/L (136-145); eGFR 42 See Note
[2025-03-17 18:30] LABS: Alanine Aminotransferase 9 U/L (10-49); Albumin, Serum 3.8 gm/dL (3.5-5.0); Albumin/Globulin Ratio 1.0 (1.2-2.2); Alkaline Phosphatase 104 U/L (46-116); Aspartate Amino Transferase < 8 U/L (0-34); Bilirubin,Total < 0.2 mg/dL (0.3-1.2); Calcium 9.2 mg/dL (8.3-10.6); Calcium (Corrected) 9.4 mg/dL (8.5-10.1); Globulin 3.7 gm/dL (2.3-3.5); Osmolality,Calculated 274 (275-295); Total Protein 7.5 gm/dL (5.7-8.2)
[2025-03-17 18:31] LABS: Potassium 6.1 mMol/L (3.4-5.1)
--- NOTE | 2025-03-17 18:33 | EKG_ITS ---
[facility] Test Date: 2025-03-17 Pat Name: KANWAL HAGAN Department: Room: - Gender: Female Anesthesia Associate: : 1975 Requested By: Ernie Levin Order Number: [id number] Reading MD: Ernie Levin Measurements Intervals [place] Rate: 70 P: 52 IL: 171 QRS: -19 QRSD: 93 T: 21 QT: 377 QTc: 407 Interpretive Statements SINUS RHYTHM LOW QRS VOLTAGE IN PRECORDIAL LEADS [QRS DEFLECTION < 1.0 mV IN CHEST LEADS] INCOMPLETE RIGHT BUNDLE BRANCH BLOCK [90+ ms QRS DURATION, TERMINAL R IN V1/V2, 40+ ms S IN I/aVL/V4/V5/V6] POSSIBLE ANTERIOR MYOCARDIAL INFARCTION , PROBABLY OLD [30 ms Q WAVE IN V3/V4, OR R < 0.2 mV IN V4] Compared to ECG 12/17/2024 23:05:40 No significant changes /store/S0/[id number].pdf
[2025-03-17 18:39] VITALS: BMI 52.7
[2025-03-17 19:23] LABS: Potassium 5.5 mMol/L (3.4-5.1)
[2025-03-17 19:37] LABS: Collection Type, Urine Catheter; Squamous Epithelial Cell,Urine 0 /hpf (0-5)
[2025-03-17 19:44] LABS: Bacteria,Urine Rare; Bilirubin,Urine Negative (Negative); Blood,Urine Trace (Negative); Clarity,Urine Clear (Clear/Hazy); Color,Urine Colorless (Lt Yel-Yel); Glucose, Urine Negative (Negative); Ketones,Urine Negative (Negative); Leukocyte Esterase,Urine Positive (Negative); Nitrite,Urine Negative (Negative); PH,Urine 7.0 (5.0-7.0); Protein,Urine Trace (Neg - Trace); RBC,Urine 4 /hpf (0-3); Specific Gravity,Urine 1.007 (1.001-1.035); Urobilinogen,Urine Negative mg/dL (0.0-1.0); WBC,Urine 18 /hpf (0-5)
[2025-03-17 19:54] VITALS: BP 126/74; PULSE 78; RESP 18; TEMP 37; O2SAT 95
[2025-03-17 20:03] LABS: Culture Indicated,Urine Yes
[2025-03-17] MEDS: INSULIN HUM REGULAR 1 UNIT/0.01 ML (PER UNIT) 5 UNIT IV (20:38)
[2025-03-17] MEDS: CALCIUM GLUCONATE 10% INJ 1 GM/10 ML VIAL IV (20:38)
[2025-03-17] MEDS: DEXTROSE 50%-WATER INJ 50 ML SYRINGE IVP (20:38)
[2025-03-17 22:00] VITALS: BP 140/88; PULSE 75; RESP 18; TEMP 36.8; O2SAT 96
[2025-03-17 22:18] VITALS: BP 140/88; PULSE 78; RESP 19; TEMP 36.9; O2SAT 96
== END 2025-03-18 00:01 | disposition home or self-care (01) ==
PROVIDERS: Registered Nurse General Practice; Emergency Provider Emergency Medicine; PCP Family Medicine
DX: T83.012A Breakdown (mechanical) of nephrostomy catheter, initial encounter (principal); Q05.9 Spina bifida, unspecified; E66.01 Morbid (severe) obesity due to excess calories; N20.0 Calculus of kidney; D64.9 Anemia, unspecified; Z90.5 Acquired absence of kidney; Z68.43 Body mass index [BMI] 50.0-59.9, adult; Z90.710 Acquired absence of both cervix and uterus; Z88.1 Allergy status to other antibiotic agents; Z93.6 Other artificial openings of urinary tract status; Y84.6 Urinary catheterization as the cause of abnormal reaction of the patient, or of later complication, without mention of misadventure at the time of the procedure
CPT/HCPCS: 36415; 74176; 80053; 81001; 84132; 85025; 87077; 87086; 87186; 93005; 99284; J0612; J1815

== ENCOUNTER 2025-03-25 12:54 | Outpatient (RCR) | payer MEDICARE, MEDICAID, SELFPAY | END 2025-03-25 23:59 | disposition home or self-care (01) | LOC: SCTC 12:54 | PROVIDERS: PCP Nurse Practitioner Family; Referring Provider Nurse Practitioner Family; Visit Provider Nurse Practitioner Family | DX: D50.9 Iron deficiency anemia, unspecified (principal); K59.00 Constipation, unspecified | CPT/HCPCS: 96365; 99212; J1756; J3490; J7040; G0463 ==

== ENCOUNTER 2025-03-25 16:02 | Emergency (ER) | payer MEDICARE, MEDICAID, SELFPAY ==
[2025-03-25 16:10] VITALS: BP 122/80; PULSE 87; RESP 18; TEMP 37.2; O2SAT 97
[2025-03-25 16:13] VITALS: BMI 52.7
[2025-03-25 17:33] VITALS: PULSE 90; RESP 18; O2SAT 99
--- NOTE | 2025-03-25 17:35 | PC.NURSE ---
IN TO ASSESS PT. PT BIBA FROM HOME WITH C/O LEFT NEPHROSTOMY TUBE NOT PROPERLY DRAINING. PT WITHOUT FURTHER COMPLAINTS AT THIS TIME. CALL LIGHT PLACED WITHIN REACH. PLAN OF CARE ONGOING.
--- NOTE | 2025-03-25 17:45 | PC.NURSE ---
PROVIDER AT BEDSIDE ATTEMPTING TO FLUSH LEFT NEPHROSTOMY TUBE. ATTEMPT UNSUCCESSFUL.
--- NOTE | 2025-03-25 17:47 | PD.EDADULT ---
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 The patient is well-known to me for having bilateral nephrostomy tubes the right side was partially obstructed and she was seen here 1 week ago at which time under the advice of the urologist I flushed the right nephrostomy tube with reestablishment of drainage. Patient denies fever left lower abdominal pain nausea vomiting headache shortness of breath or difficulty breathing. The patient's urostomy bag continues to drain clear yellow urine consistency. Left nephrostomy tube bag has approximately 20 mL in it. Right nephrostomy bag has approximately 100 mL in it. Patient is not in any acute distress. Related Data Home Medications ?Medication ?Instructions ?Recorded ?Confirmed albuterol sulfate 90 mcg/actuation 2 puff inhalation Q4HR PRN 05/25/23 01/17/25 aerosol inhaler Shortness Of Breath cholecalciferol (vitamin D3) 125 125 mcg PO QDAY 05/25/23 01/17/25 mcg (5,000 unit) tablet (Vitamin D3) escitalopram oxalate 20 mg tablet 20 mg PO QDAY 05/25/23 01/17/25 (Lexapro) fluticasone propionate 50 1 spray intranasal BID 05/25/23 01/17/25 mcg/actuation nasal spray,suspension loratadine 10 mg capsule 10 mg PO QDAY 05/25/23 01/17/25 potassium chloride 15 mEq 15 meq PO BID 05/25/23 01/17/25 tablet,extended release(part/cryst) docusate sodium 100 mg capsule 100 mg PO 1XD PRN Constipation 09/25/23 01/17/25 lactulose 10 gram/15 mL oral 15 - 30 ml PO PRN PRN Constipation 09/25/23 01/17/25 solution linaclotide 145 mcg capsule 145 mcg PO QAM 02/23/24 01/17/25 (Linzess) mupirocin 2 % topical ointment 1 applic topical DAILY 04/18/24 01/17/25 polyethylene glycol 3350 17 4 g PO QDAY 07/19/24 01/17/25 gram/dose oral powder (Miralax) zolpidem 10 mg tablet 10 mg PO QDAY 12/18/24 01/17/25 multivitamin 1 tab PO QDAY 01/17/25 01/17/25 Previous Rx's ?Medication ?Instructions ?Recorded ferrous sulfate 325 mg (65 mg 325 mg PO Q OTHER DAY 1 month #15 02/24/24 iron) tablet tabs ciprofloxacin HCl 500 mg tablet 500 mg PO QDAY #8 tabs 12/20/24 potas and sod citrate-citric acid 30 ml PO QDAY #473 mL 12/20/24 550 mg-500 mg-334 mg/5 mL oral soln Allergies Allergy/AdvReac Type Severity Reaction Status Date / Time vancomycin Allergy Severe RASH/ITCHIN Verified 02/27/25 15:50 G Review of Systems Review of Systems Narrative Review of Systems: GEN: No fever, no chills, no weight loss EYES: No discharge, no visual changes, no pain HEENT: No ear pain, no congestion, no sore throat PULM: No shortness of breath, no cough, no congestion CV: No chest pain, no dyspnea on exertion, no palpitations GI: No nausea, no vomiting, no diarrhea, no pain, no constipation : No frequency, no urgency, no dysuria MUSC/SKEL: No joint pain, no back pain SKIN: No rash PSYCH: No hallucinations, no depression HEME/LYMPH: No easy bleeding or bruising tendencies NEURO: No weakness, no headache Past Medical History Past Medical History NEUROLOGIC: Positive Neurological Disorders and Spina Bifida (PT HAS BRAIN SHUNT); Negative Seizures CARDIAC: Positive Cardiac Disorders, Cardiac Arrhythmia, Angina, Peripheral Vascular Disease and Cellulitis; Negative Congestive Heart Failure RESPIRATORY: Negative Chronic Obstructive Pulmonary Disease (COPD) or Asthma GASTROINTESTINAL: Positive Gastrointestinal Disorders, Obstructive Bowel, Gastroesophageal Reflux Disease and Obesity; Negative Hepatitis or Gall Bladder Disease GENITOURINARY: Positive Genitourinary Disorders and Kidney Stones; Negative Renal Disease REPRODUCTIVE: Negative Previous Pregnancies MUSCULOSKELETAL: Positive Musculoskeletal Disorders and Osteomyelitis ENDOCRINE: Negative Endocrine Disorders, Diabetes Mellitus Type 1 or Diabetes Mellitus Type 2 HEMATOLOGIC: Positive Blood Disorders and Anemia; Negative Sickle Cell Disease PSYCHO/SOCIAL: Positive Anxiety OTHER HISTORY: Positive Hospitalization, Autoimmune Disease, MRSA, Chicken Pox and Measles; Negative Shingles, Falls, Blood Transfusions, Blood Transfusion Reaction, Anesthesia Reactions, Chemotherapy, Radiation Therapy, Human Immunodeficiency Virus (HIV), Mumps, Rubella (Persian Measles), Pertussis, Clostridium Difficile or Cancer Family History FAMILY HISTORY: Positive Family Surgery; Negative Family Psychiatric Problems, Family Respiratory Disorders, Family Cardiac Disorders, Family Gastrointestinal Problems, Family Cancer or Family Anesthesia Reaction Surgical History SURGICAL: Positive Abdominal Surgery (UROSTOMY), Nephrectomy, Amputation, Brain Shunt, Lumpectomy and Hysterectomy; Negative Oral Surgery OTHER SURGICAL HX: BILAT NEPHROSTOMY TUBES Social History SMOKING STATUS: Never smoker SUBSTANCE USE: does not use ED Exam Narrative Physical exam: [General: Morbidly obese not in any acute distress Head normocephalic HEENT: Within acceptable limits Neck is supple nontender Chest equal chest rise nontender to palpation Respiratory: Clear to auscultation no wheezes crackles or rubs CV: Rate rhythm is regular no murmurs rubs or clicks Abdomen is grossly distended secondary to body habitus soft nontender no masses positive bowel sounds all 4 quadrants Back: No CVA tenderness no spinous process tenderness from cervical spine thoracic and lumbar spine Skin: Left nephrostomy tube site dressing clean dry and intact no erythema no edema. Otherwise patient has a decubitus, right nephrostomy tube dressing clean dry and intact as well. Intact no petechiae rash induration ulceration or crepitus Extremities: Moving upper extremities without complication lower extremities are flaccid. Neuro: Awake alert oriented x3 Course Course Course Narrative: Given the patient is afebrile nontoxic with no abdominal pain or abdominal tenderness and her urostomy bag continues to flush as well as the left nephrostomy tube continues to drain I have a low index of suspicion that there is any acute situation at this time that warrants immediate intervention to unblock the right nephrostomy tube. Patient advised to follow-up with urologist at [facility] where the nephrostomy tubes were placed. Or if she establishes any of the symptoms listed above to return immediately to the closest ER for further identification. If that said ER does not have urology the likelihood is he would be need to be transferred to another facility if another nephrostomy tube could not be placed at that time. Patient is aware of her condition and agrees she wants to be discharged home. Quality Measures none Vital Signs Vital signs: Vital Signs Temperature 98.9 F 03/25/25 16:10 Pulse Rate 87 03/25/25 16:10 Respiratory Rate 18 03/25/25 16:10 Blood Pressure 122/80 03/25/25 16:10 Pulse Oximetry (%) 97 03/25/25 16:10 Oxygen Delivery Method Room Air 03/25/25 16:10 PROCEDURES: Procedure Comment Nephrostomy tube flushing under sterile condition, right nephrostomy tube flushed easily with 10 cc of sterile saline however unable to draw back urine. Attempt only 1 flushing. Discharge Plan Plan Patient Disposition: HOME (Self Care) Prescriptions/Referrals Prescriptions/Med Rec: No Action polyethylene glycol 3350 [Miralax] 17 gram/dose powder 4 g PO QDAY multivitamin Tablet 1 tab PO QDAY albuterol sulfate 90 mcg/actuation Hfa Aerosol Inhaler 2 puff INHALATION Q4HR PRN (Reason: Shortness Of Breath) fluticasone propionate 50 mcg/actuation [place],Suspension 1 spray INTRANASAL BID Rx Instructions: administer into each nostril escitalopram oxalate [Lexapro] 20 mg Tablet 20 mg PO QDAY potassium chloride 15 mEq Tablet,Er Particles/Crystals 15 meq PO BID cholecalciferol (vitamin D3) [Vitamin D3] 125 mcg (5,000 unit) Tablet 125 mcg PO QDAY loratadine 10 mg Capsule 10 mg PO QDAY lactulose 10 gram/15 mL solution 15 - 30 ml PO PRN PRN (Reason: Constipation) Patient Comments: TAKE 15 ML TO 30 ML BY MOUTH DAILY NEEDED FOR CONSTIPATION docusate sodium 100 mg capsule 100 mg PO 1XD PRN (Reason: Constipation) Patient Comments: TAKE ONE CAPSULE BY MOUTH EVERY DAY NEEDED Linzess 145 mcg capsule 145 mcg PO QAM ferrous sulfate 325 mg (65 mg iron) Tablet 325 mg PO Q OTHER DAY 30 Days Qty: 15 0RF mupirocin 2 % ointment 1 applic TOPICAL DAILY Patient Comments: APPLY TO THE AFFECTED AREA(S) EVERY DAY FOR INFECTION Rx Instructions: calcium alginate, adaptic and ABD pad zolpidem 10 mg tablet 10 mg PO QDAY Patient Comments: TAKE ONE TABLET BY MOUTH AT BEDTIME FOR SLEEP pot,sodium citrate-citric acid 550-500-334 mg/5 mL solution 30 ml PO QDAY Qty: 473 0RF Rx Instructions: Take 30ml once daily ciprofloxacin HCl 500 mg tablet 500 mg PO QDAY Qty: 8 0RF Rx Instructions: Take 1 tablet once daily for 8 days Referrals: Jacobo hSer[facility]MD [Primary Care Provider, Family Practice] - In 1 week Problem List Clinical Impression: Obstructed nephrostomy tube Patient/Caregiver Discharge Instructions Other Activity Instructions:: Continue to monitor your nephrostomy tube. If the urostomy bag does not continue to drain urine and the left nephrostomy tube stops draining follow-up immediately with your urologist or go to the closest emergency room for reevaluation. As some hospitals do not have urology on-call you need to be aware that there is a potential you will be transferred to another facility where urology is available if it is warranted at the time. If you spike a high fever, please return for reevaluation. Print Language: Vietnamese Stand Alone Forms: Teresa Award Info., Work/School Release, Patient Portal Info Letter PA/STACIA Supervising Physician TANK/STACIA Supervising Physician: Ernie Mejia ENP
[2025-03-25 17:55] VITALS: BP 128/69; PULSE 74; RESP 18; TEMP 36.8; O2SAT 98
--- NOTE | 2025-03-25 18:30 | PC.NURSE ---
PER PROVIDER OKAY TO D/C PT HOME AT THIS TIME. PT INSTRUCTED TO F/UP WITH UROLOGIST AND RETURN TO ER SOON POSSIBLE IF SHE BECOMES SYMPTOMATIC WITH SYMPTOMS SUCH FEVER OR PAIN.
[2025-03-25 19:54] VITALS: BP 118/72; PULSE 71; RESP 20
== END 2025-03-25 19:56 | disposition home or self-care (01) ==
PROVIDERS: Emergency Provider Family Medicine; PCP Family Medicine
DX: T83.092A Other mechanical complication of nephrostomy catheter, initial encounter (principal); Y83.2 Surgical operation with anastomosis, bypass or graft as the cause of abnormal reaction of the patient, or of later complication, without mention of misadventure at the time of the procedure; Y92.89 Other specified places as the place of occurrence of the external cause
CPT/HCPCS: 99281

== ENCOUNTER 2025-03-27 12:02 | Emergency (ER) | payer MEDICARE, MEDICAID, SELFPAY ==
--- NOTE | 2025-03-27 | XR_ITS ---
Examination: Left nephrostogram Fluoroscopy AP abdomen single view Date and time: March 27, 2025, 1455 hours INDICATIONS: Nephrostomy tube not draining TECHNIQUE AND FINDINGS: Informed consent provided. Timeout performed. Hand injection 15 cc Cystografin with fluoroscopic imaging of the nephrostomy catheter Nephrostomy catheter is in satisfactory position and flushed 4 clearing of the sediment in the catheter Fluoroscopy 0.5 minutes radiation dose 56.35 milligray IMPRESSION: Left nephrostogram catheter is in satisfactory position
[2025-03-27 12:32] VITALS: BP 128/87; PULSE 84; RESP 16; TEMP 37.2; O2SAT 98
--- NOTE | 2025-03-27 12:33 | PD.EDRME ---
Rapid Medical Screening Exam RME Arrival date/time: 03/27/25 12:02 49-year-old female presents to the emergency department today for complaints of nephrostomy tube malfunction Chief Complaint: General Adult/Misc Complain Time Seen by Provider: 03/27/25 12:24 Vital signs: Vital Signs Temperature 98.9 F 03/27/25 12:32 Pulse Rate 84 03/27/25 12:32 Respiratory Rate 16 03/27/25 12:32 Blood Pressure 128/87 H 03/27/25 12:32 Pulse Oximetry (%) 98 03/27/25 12:32 Oxygen Delivery Method Room Air 03/27/25 12:32
[2025-03-27 13:18] LABS: Basophils # (Auto) 0.0 Thou/mm3 (0.0-0.2); Basophils % (Auto) 0 % (0-2.5); Eosinophils # (Auto) 0.1 Thou/mm3 (0.0-0.5); Eosinophils % (Auto) 2 % (0-10); Hematocrit 36.1 % (36.0-46.0); Hemoglobin 11.1 g/dL (12.0-16.0); Immature Granulocytes Auto 0.02 Thou/mm3 (0.00-0.00); Lymphocytes # (Auto) 1.0 Thou/mm3 (1.0-4.8); Lymphocytes % (Auto) 16 % (10-50); Mean Corpuscular HGB Conc 30.7 g/dl (31.0-37.0); Mean Corpuscular Hemoglobin 31.9 pg (25.0-35.0); Mean Corpuscular Volume 104 fL (80-100); Monocytes # (Auto) 0.5 Thou/mm3 (0.0-0.8); Monocytes % (Auto) 7 % (0-12); Neutrophils # (Auto) 4.5 Thou/mm3 (1.8-7.7); Neutrophils % (Auto) 73 % (37-80); Nucleated Red Blood Cell # 0.00 Thou/mm3 (0.00-0.00); Nucleated Red Blood Cell % 0 /100 WBC (0); Platelet Count 242 Thou/mm3 (140-440); RDW Standard Deviation 52.7 fL (36.4-46.3); Red Blood Count 3.48 Miln/mm3 (4.00-5.20); White Blood Count 6.2 Thou/mm3 (3.6-11.0)
[2025-03-27 13:54] LABS: Alanine Aminotransferase 10 U/L (10-49); Albumin, Serum 4.2 gm/dL (3.5-5.0); Albumin/Globulin Ratio 1.3 (1.2-2.2); Alkaline Phosphatase 99 U/L (46-116); Anion Gap 9 (7-16); Aspartate Amino Transferase 14 U/L (0-34); BUN/Creatinine Ratio 15 Ratio (12-20); Bilirubin,Total < 0.2 mg/dL (0.3-1.2); Blood Urea Nitrogen 22 mg/dL (9-23); Calcium 9.5 mg/dL (8.3-10.6); Calcium (Corrected) 9.5 mg/dL (8.5-10.1); Carbon Dioxide 25.3 mMol/L (20.0-31.0); Chloride 108 mMol/L (98-107); Creatinine (Component) 1.5 mg/dL (0.6-1.3); Globulin 3.3 gm/dL (2.3-3.5); Glucose 90 mg/dL (74-106); Osmolality,Calculated 286 (275-295); Potassium 5.1 mMol/L (3.4-5.1); Sodium 142 mMol/L (136-145); Total Protein 7.5 gm/dL (5.7-8.2); eGFR 42 See Note
[2025-03-27 13:59] LABS: HCG,Qualitative Serum Negative
--- NOTE | 2025-03-27 14:57 | PC.NURSE ---
PER DR CHAVES NO IV NECESSARY
[2025-03-27 15:15] VITALS: BP 143/84; PULSE 91; RESP 16; O2SAT 92
[2025-03-27 15:20] VITALS: BP 147/85; PULSE 16; PULSE 93; RESP 93; O2SAT 94
--- NOTE | 2025-03-27 15:57 | PC.NURSE ---
hand off report given to jimmie rn. patient brought back to er via personal wheelchair instructed by abrahan samuel to place in triage room. notified jimmie rn of md rae recommendation to return monday or monday of next week (04/01/2025-04/02/2025) if left nephrostomy tube still not draining.
--- NOTE | 2025-03-27 16:18 | PD.EDADULT ---
ED General RME/HPI General Chief complaint: General Adult/Misc Complain Stated complaint: LEFT NEPHROSTOMY NOT DRAINING Time Seen by Provider: 03/27/25 12:24 Arrival date/time: 03/27/25 12:02 RME / HPI RME / HPI narrative: 49-year-old female presents to the emergency department today for complaints of left nephrostomy tube malfunction. Patient told me that her left nephrostomy is not draining since this morning. Patient denies any fever denies any vomiting denies any abdominal pain. Patient had a nephrostomy done and vacation failed few months ago. Denies any other complaints. Related Data Home Medications ?Medication ?Instructions ?Recorded ?Confirmed albuterol sulfate 90 mcg/actuation 2 puff inhalation Q4HR PRN 05/25/23 01/17/25 aerosol inhaler Shortness Of Breath cholecalciferol (vitamin D3) 125 125 mcg PO QDAY 05/25/23 01/17/25 mcg (5,000 unit) tablet (Vitamin D3) escitalopram oxalate 20 mg tablet 20 mg PO QDAY 05/25/23 01/17/25 (Lexapro) fluticasone propionate 50 1 spray intranasal BID 05/25/23 01/17/25 mcg/actuation nasal spray,suspension loratadine 10 mg capsule 10 mg PO QDAY 05/25/23 01/17/25 potassium chloride 15 mEq 15 meq PO BID 05/25/23 01/17/25 tablet,extended release(part/cryst) docusate sodium 100 mg capsule 100 mg PO 1XD PRN Constipation 09/25/23 01/17/25 lactulose 10 gram/15 mL oral 15 - 30 ml PO PRN PRN Constipation 09/25/23 01/17/25 solution linaclotide 145 mcg capsule 145 mcg PO QAM 02/23/24 01/17/25 (Linzess) mupirocin 2 % topical ointment 1 applic topical DAILY 04/18/24 01/17/25 polyethylene glycol 3350 17 4 g PO QDAY 07/19/24 01/17/25 gram/dose oral powder (Miralax) zolpidem 10 mg tablet 10 mg PO QDAY 12/18/24 01/17/25 multivitamin 1 tab PO QDAY 01/17/25 01/17/25 Previous Rx's ?Medication ?Instructions ?Recorded ferrous sulfate 325 mg (65 mg 325 mg PO Q OTHER DAY 1 month #15 02/24/24 iron) tablet tabs ciprofloxacin HCl 500 mg tablet 500 mg PO QDAY #8 tabs 12/20/24 potas and sod citrate-citric acid 30 ml PO QDAY #473 mL 12/20/24 550 mg-500 mg-334 mg/5 mL oral soln Allergies Allergy/AdvReac Type Severity Reaction Status Date / Time vancomycin Allergy Severe RASH/ITCHIN Verified 03/27/25 12:04 G Review of Systems Review of Systems Narrative Review of Systems: Review of system reviewed and within normal limits except mentioned in HPI ED Exam Narrative Physical exam: VITAL SIGNS: Reviewed. GENERAL APPEARANCE: Alert and interactive, follows commands, no acute distress, HEAD AND FACE: Non-traumatic. ENT: PERRL, pink conjunctivitis, eyelid no trauma, Mucous membrane moist. NECK: Supple, nontender, no nuchal rigidity. CHEST: No tenderness, no crepitus, no paradoxical movement, no retractions. LUNGS: Clear, well ventilated, symmetric, no rales, no wheezing, no ronchi, no stridor, good breath sounds bilaterally. HEART: Regular rate, regular rhythm, no murmur, no gallops. ABDOMEN: Soft, positive bowel sounds, nondistended, no guarding, nontender, no rebound, no masses, bilateral nephrostomy tube noted, the left nephrostomy is dry no drainage RECTAL: Deferred. GENITAL: Deferred. NEUROLOGICAL: Gross motor function intact sensory function intact, Appropriate for age. MUSCULOSKELETAL: low back nontender, full range of motion. EXTREMITIES: Nontender, full range of motion bilateral upper extremity, bilateral lower extremity, minimal movement, atrophy noted SKIN: Color pink, dry, no rash, no lacerations, no abrasions, no contusions. LYMPHATICS: Deferred. Course Quality Measures none Orders Category Date Time Status IR nephrostogram LT Stat Exams 03/27/25 Completed IR nephrostomy tube change Stat Exams 03/27/25 Ordered CBC Stat Lab 03/27/25 13:07 Completed CMP [Comprehensive Metabolic Panel] Stat Lab 03/27/25 13:07 Completed HCG,Qualitative Serum Stat Lab 03/27/25 13:07 Completed Vital Signs Vital signs: Vital Signs Temperature 98.9 F 03/27/25 12:32 Pulse Rate 84 03/27/25 12:32 Respiratory Rate 16 03/27/25 12:32 Blood Pressure 128/87 H 03/27/25 12:32 Pulse Oximetry (%) 98 03/27/25 12:32 Oxygen Delivery Method Room Air 03/27/25 12:32 Discharge Plan Plan Patient Disposition: HOME (Self Care) Discharge Disposition comment: Stable Prescriptions/Referrals Prescriptions/Med Rec: No Action polyethylene glycol 3350 [Miralax] 17 gram/dose powder 4 g PO QDAY multivitamin Tablet 1 tab PO QDAY albuterol sulfate 90 mcg/actuation Hfa Aerosol Inhaler 2 puff INHALATION Q4HR PRN (Reason: Shortness Of Breath) fluticasone propionate 50 mcg/actuation [place],Suspension 1 spray INTRANASAL BID Rx Instructions: administer into each nostril escitalopram oxalate [Lexapro] 20 mg Tablet 20 mg PO QDAY potassium chloride 15 mEq Tablet,Er Particles/Crystals 15 meq PO BID cholecalciferol (vitamin D3) [Vitamin D3] 125 mcg (5,000 unit) Tablet 125 mcg PO QDAY loratadine 10 mg Capsule 10 mg PO QDAY lactulose 10 gram/15 mL solution 15 - 30 ml PO PRN PRN (Reason: Constipation) Patient Comments: TAKE 15 ML TO 30 ML BY MOUTH DAILY NEEDED FOR CONSTIPATION docusate sodium 100 mg capsule 100 mg PO 1XD PRN (Reason: Constipation) Patient Comments: TAKE ONE CAPSULE BY MOUTH EVERY DAY NEEDED Linzess 145 mcg capsule 145 mcg PO QAM ferrous sulfate 325 mg (65 mg iron) Tablet 325 mg PO Q OTHER DAY 30 Days Qty: 15 0RF mupirocin 2 % ointment 1 applic TOPICAL DAILY Patient Comments: APPLY TO THE AFFECTED AREA(S) EVERY DAY FOR INFECTION Rx Instructions: calcium alginate, adaptic and ABD pad zolpidem 10 mg tablet 10 mg PO QDAY Patient Comments: TAKE ONE TABLET BY MOUTH AT BEDTIME FOR SLEEP pot,sodium citrate-citric acid 550-500-334 mg/5 mL solution 30 ml PO QDAY Qty: 473 0RF Rx Instructions: Take 30ml once daily ciprofloxacin HCl 500 mg tablet 500 mg PO QDAY Qty: 8 0RF Rx Instructions: Take 1 tablet once daily for 8 days Referrals: No Primary/Family,Physician [Primary Care Provider] - In 1 week Problem List Clinical Impression: Nephrostomy complication Patient/Caregiver Discharge Instructions Discharge Activity: activity as tolerated Education Materials: Percutaneous Nephrostomy Additional Instructions: Thank you for the opportunity for serving you today. You are stable for discharged . You are advised to: Follow-up with your urologist who did the nephrostomy in [place] in 1 to 2 days Return to ED for worsening of symptoms Increase oral fluids Print Language: Urdu Stand Alone Forms: Teresa Award Info., Patient Portal Info Letter TANK/STACIA Supervising Physician TANK/STACIA Supervising Physician: mD Asad MDM Narrative MDM hospital course (for use when minimal MDM required): 49-year-old female presents to the emergency department today for complaints of left nephrostomy tube malfunction. Patient told me that her left nephrostomy is not draining since this morning. Patient denies any fever denies any vomiting denies any abdominal pain. Patient had a nephrostomy done and vacation failed few months ago. Denies any other complaints. Nephrostogram was done Informed consent provided. Timeout performed. Hand injection 15 cc Cystografin with fluoroscopic imaging of the nephrostomy catheter Nephrostomy catheter is in satisfactory position and flushed 4 clearing of the sediment in the catheter Fluoroscopy 0.5 minutes radiation dose 56.35 milligray IMPRESSION: Left nephrostogram catheter is in satisfactory position Results discussed with the patient. Patient was advised to closely follow-up with urologist in [place] for persistence of symptoms.
== END 2025-03-27 16:33 | disposition home or self-care (01) ==
PROVIDERS: Nurse Practitioner Primary Care; Emergency Provider Family Medicine
DX: N99.522 Malfunction of incontinent external stoma of urinary tract (principal); Y84.9 Medical procedure, unspecified as the cause of abnormal reaction of the patient, or of later complication, without mention of misadventure at the time of the procedure
CPT/HCPCS: 50431; 36415; 80053; 84703; 85025; 99283; Q9958

== ENCOUNTER 2025-03-30 11:55 | Emergency (ER) | payer MEDICARE, MEDICAID, SELFPAY ==
--- NOTE | 2025-03-30 12:05 | PD.EDADULT ---
ED General RME/HPI General Chief complaint: Urogenital-Female Stated complaint: BLOOD IN URINE Time Seen by Provider: 03/30/25 12:05 Arrival date/time: 03/30/25 11:55 CC: Blood in the right nephrostomy bag HPI onset yesterday afternoon. The patient finished her round of antibiotics last night. The patient has bilateral nephrostomy tubes in addition to a urostomy bag. Patient been seen here several times regarding blockage in her urostomy bags. Patient denies any fever chills chest pain shortness of breath difficulty breathing nausea vomiting or diarrhea in the past 48 hours. No other complaints vital signs upon initial assessment were stable. Related Data Home Medications ?Medication ?Instructions ?Recorded ?Confirmed albuterol sulfate 90 mcg/actuation 2 puff inhalation Q4HR PRN 05/25/23 01/17/25 aerosol inhaler Shortness Of Breath cholecalciferol (vitamin D3) 125 125 mcg PO QDAY 05/25/23 01/17/25 mcg (5,000 unit) tablet (Vitamin D3) escitalopram oxalate 20 mg tablet 20 mg PO QDAY 05/25/23 01/17/25 (Lexapro) fluticasone propionate 50 1 spray intranasal BID 05/25/23 01/17/25 mcg/actuation nasal spray,suspension loratadine 10 mg capsule 10 mg PO QDAY 05/25/23 01/17/25 potassium chloride 15 mEq 15 meq PO BID 05/25/23 01/17/25 tablet,extended release(part/cryst) docusate sodium 100 mg capsule 100 mg PO 1XD PRN Constipation 09/25/23 01/17/25 lactulose 10 gram/15 mL oral 15 - 30 ml PO PRN PRN Constipation 09/25/23 01/17/25 solution linaclotide 145 mcg capsule 145 mcg PO QAM 02/23/24 01/17/25 (Linzess) mupirocin 2 % topical ointment 1 applic topical DAILY 04/18/24 01/17/25 polyethylene glycol 3350 17 4 g PO QDAY 07/19/24 01/17/25 gram/dose oral powder (Miralax) zolpidem 10 mg tablet 10 mg PO QDAY 12/18/24 01/17/25 multivitamin 1 tab PO QDAY 01/17/25 01/17/25 Previous Rx's ?Medication ?Instructions ?Recorded ferrous sulfate 325 mg (65 mg 325 mg PO Q OTHER DAY 1 month #15 02/24/24 iron) tablet tabs ciprofloxacin HCl 500 mg tablet 500 mg PO QDAY #8 tabs 12/20/24 potas and sod citrate-citric acid 30 ml PO QDAY #473 mL 12/20/24 550 mg-500 mg-334 mg/5 mL oral soln Allergies Allergy/AdvReac Type Severity Reaction Status Date / Time vancomycin Allergy Severe RASH/ITCHIN Verified 03/27/25 12:04 G Review of Systems Review of Systems Narrative Review of Systems: GEN: No fever, no chills, no weight loss EYES: No discharge, no visual changes, no pain HEENT: No ear pain, no congestion, no sore throat PULM: No shortness of breath, no cough, no congestion CV: No chest pain, no dyspnea on exertion, no palpitations GI: No nausea, no vomiting, no diarrhea, no pain, no constipation : No frequency, no urgency, no dysuria MUSC/SKEL: No joint pain, no back pain SKIN: No rash PSYCH: No hallucinations, no depression HEME/LYMPH: No easy bleeding or bruising tendencies NEURO: No weakness, no headache Past Medical History Past Medical History NEUROLOGIC: Positive Neurological Disorders and Spina Bifida (PT HAS BRAIN SHUNT); Negative Seizures CARDIAC: Positive Cardiac Disorders, Cardiac Arrhythmia, Angina, Peripheral Vascular Disease and Cellulitis; Negative Congestive Heart Failure RESPIRATORY: Negative Chronic Obstructive Pulmonary Disease (COPD) or Asthma GASTROINTESTINAL: Positive Gastrointestinal Disorders, Obstructive Bowel, Gastroesophageal Reflux Disease and Obesity; Negative Hepatitis or Gall Bladder Disease GENITOURINARY: Positive Genitourinary Disorders and Kidney Stones; Negative Renal Disease REPRODUCTIVE: Negative Previous Pregnancies MUSCULOSKELETAL: Positive Musculoskeletal Disorders and Osteomyelitis ENDOCRINE: Negative Endocrine Disorders, Diabetes Mellitus Type 1 or Diabetes Mellitus Type 2 HEMATOLOGIC: Positive Blood Disorders and Anemia; Negative Sickle Cell Disease PSYCHO/SOCIAL: Positive Anxiety OTHER HISTORY: Positive Hospitalization, Autoimmune Disease, MRSA, Chicken Pox and Measles; Negative Shingles, Falls, Blood Transfusions, Blood Transfusion Reaction, Anesthesia Reactions, Chemotherapy, Radiation Therapy, Human Immunodeficiency Virus (HIV), Mumps, Rubella ([place] Measles), Pertussis, Clostridium Difficile or Cancer Family History FAMILY HISTORY: Positive Family Surgery; Negative Family Psychiatric Problems, Family Respiratory Disorders, Family Cardiac Disorders, Family Gastrointestinal Problems, Family Cancer or Family Anesthesia Reaction Surgical History SURGICAL: Positive Abdominal Surgery (UROSTOMY), Nephrectomy, Amputation, Brain Shunt, Lumpectomy and Hysterectomy; Negative Oral Surgery Social History SMOKING STATUS: Never smoker SUBSTANCE USE: does not use ED Exam Narrative Physical exam: [General: Morbidly obese not in any cute distress Head normocephalic HEENT: Within acceptable limits Neck is supple nontender Chest equal chest rise nontender to palpation Respiratory: Clear to auscultation no wheezes crackles or rubs CV: Rate rhythm is regular no murmurs rubs or clicks Abdomen is grossly distended secondary to body habitus soft nontender no masses positive bowel sounds all 4 quadrants both nephrostomy tube bags draining clear to cloudy yellow urine. Urostomy bag clear to cloudy urine. No visual blood appreciated in any of the 3 bags. Back: No CVA tenderness no spinous process tenderness from cervical spine thoracic and lumbar spine Skin: Bilateral nephrostomy tube sites dressing clean dry and intact. intact no petechiae rash induration ulceration or crepitus Extremities: Moving all extremity against resistance cap refill less than 2 seconds neurosensory intact Neuro: Awake alert oriented x3 Glascow coma 15 no focal deficits] Course Quality Measures none Orders Category Date Time Status CBC Stat Lab 03/30/25 15:18 Completed CMP [Comprehensive Metabolic Panel] Stat Lab 03/30/25 15:18 Completed Urinalysis, C/S if Indicated Stat Lab 03/30/25 13:15 Completed Urine Culture Stat Lab 03/30/25 13:15 Received Vital Signs Vital signs: Vital Signs Temperature 98.3 F 03/30/25 12:09 Pulse Rate 79 03/30/25 12:09 Respiratory Rate 17 03/30/25 12:09 Blood Pressure 130/70 03/30/25 12:09 Pulse Oximetry (%) 98 03/30/25 12:09 Oxygen Delivery Method Room Air 03/30/25 12:09 Discharge Plan Plan Patient Disposition: HOME (Self Care) Patient condition on transfer: Stable Prescriptions/Referrals Prescriptions/Med Rec: No Action polyethylene glycol 3350 [Miralax] 17 gram/dose powder 4 g PO QDAY multivitamin Tablet 1 tab PO QDAY albuterol sulfate 90 mcg/actuation Hfa Aerosol Inhaler 2 puff INHALATION Q4HR PRN (Reason: Shortness Of Breath) fluticasone propionate 50 mcg/actuation [place],Suspension 1 spray INTRANASAL BID Rx Instructions: administer into each nostril escitalopram oxalate [Lexapro] 20 mg Tablet 20 mg PO QDAY potassium chloride 15 mEq Tablet,Er Particles/Crystals 15 meq PO BID cholecalciferol (vitamin D3) [Vitamin D3] 125 mcg (5,000 unit) Tablet 125 mcg PO QDAY loratadine 10 mg Capsule 10 mg PO QDAY lactulose 10 gram/15 mL solution 15 - 30 ml PO PRN PRN (Reason: Constipation) Patient Comments: TAKE 15 ML TO 30 ML BY MOUTH DAILY NEEDED FOR CONSTIPATION docusate sodium 100 mg capsule 100 mg PO 1XD PRN (Reason: Constipation) Patient Comments: TAKE ONE CAPSULE BY MOUTH EVERY DAY NEEDED Linzess 145 mcg capsule 145 mcg PO QAM ferrous sulfate 325 mg (65 mg iron) Tablet 325 mg PO Q OTHER DAY 30 Days Qty: 15 0RF mupirocin 2 % ointment 1 applic TOPICAL DAILY Patient Comments: APPLY TO THE AFFECTED AREA(S) EVERY DAY FOR INFECTION Rx Instructions: calcium alginate, adaptic and ABD pad zolpidem 10 mg tablet 10 mg PO QDAY Patient Comments: TAKE ONE TABLET BY MOUTH AT BEDTIME FOR SLEEP pot,sodium citrate-citric acid 550-500-334 mg/5 mL solution 30 ml PO QDAY Qty: 473 0RF Rx Instructions: Take 30ml once daily ciprofloxacin HCl 500 mg tablet 500 mg PO QDAY Qty: 8 0RF Rx Instructions: Take 1 tablet once daily for 8 days Referrals: Jacobo Sher([facility])MD [Primary Care Provider, Family Practice] - In 1 week Problem List Clinical Impression: Hematuria, UTI (urinary tract infection) Patient/Caregiver Discharge Instructions Education Materials: ED Hematuria, ED CYSTITIS Female Adult Additional Instructions: Continue with your process to get an outpatient referral to the urology group that did your nephrostomy tubes. If is a worsening of symptoms return the emergency room for reevaluation. Print Language: Pashto Stand Alone Forms: Teresa Award Info., Patient Portal Info Letter PA/RISK MANAGEMENT MANAGER Supervising Physician PA/RISK MANAGEMENT MANAGER Supervising Physician: Ernie Mejia ENP [facility] Clinical Information Provided by: patient and EMS Medical Records reviewed [facility] and EMS Meds/Rx considered, not ordered None Labs/Rad/Tests considered, not ordered None Chronic Illness/Social Conditions Explain: Spina bifida bilateral nephrostomy tubes, urostomy bag. EKG EKG not done Labs Labs: interpreted by k[facility] Lab(s) Interpretation(s): CBC shows no acute leukocytosis H&H 10.3 and 34.0 respectively no thrombocytopenia CMP shows no significant electrolyte imbalances a significant improvement in the creatinine to 1.3 BUN of 21 no transaminitis T. bili elevation. Urine shows 2+ blood leukocyte esterase positive RBCs at 29 WBCs at 66 and no squamous epithelia no bacteria Imaging Imaging interpretation: none Medication Administration(s) Review of the last labs show that the patient last urine was positive for strep and sensitive to Macrobid and the patient will be discharged on Macrobid.
[2025-03-30 12:06] VITALS: PULSE 72; RESP 20; O2SAT 98; BMI 52.9
[2025-03-30 12:09] VITALS: BP 130/70; PULSE 79; RESP 17; TEMP 36.8; O2SAT 98; BMI 49.1
--- NOTE | 2025-03-30 12:13 | PC.NURSE ---
PATIENT ARRIVED ED VIA EMS SECONDARY TO BLOOD IN URINE THIS MORNING WHEN PATIENT WOKE UP. PATIENT WITH BILATERAL NEPHROSTOMY TUBES. PATIENT STATES SHE HAD BLOOD IN URINE BAG WHEN SHE WOKE UP THIS MORNING. NO OTHER COMPLAINTS AT THIS.
[2025-03-30 13:25] LABS: Collection Type, Urine Catheter; Squamous Epithelial Cell,Urine 0 /hpf (0-5)
[2025-03-30 13:44] LABS: Bilirubin,Urine Negative (Negative); Blood,Urine 2+ (Negative); Clarity,Urine Turbid (Clear/Hazy); Color,Urine Colorless (Lt Yel-Yel); Glucose, Urine Negative (Negative); Ketones,Urine Negative (Negative); Leukocyte Esterase,Urine Positive (Negative); Nitrite,Urine Positive (Negative); PH,Urine 6.5 (5.0-7.0); Protein,Urine 1+ (Neg - Trace); RBC,Urine 29 /hpf (0-3); Specific Gravity,Urine 1.008 (1.001-1.035); Urobilinogen,Urine Negative mg/dL (0.0-1.0); WBC,Urine 66 /hpf (0-5)
[2025-03-30 13:58] LABS: Culture Indicated,Urine Yes
[2025-03-30 15:31] LABS: Basophils # (Auto) 0.0 Thou/mm3 (0.0-0.2); Basophils % (Auto) 1 % (0-2.5); Eosinophils # (Auto) 0.2 Thou/mm3 (0.0-0.5); Eosinophils % (Auto) 4 % (0-10); Hematocrit 34.0 % (36.0-46.0); Hemoglobin 10.3 g/dL (12.0-16.0); Immature Granulocytes Auto 0.02 Thou/mm3 (0.00-0.00); Lymphocytes # (Auto) 1.3 Thou/mm3 (1.0-4.8); Lymphocytes % (Auto) 25 % (10-50); Mean Corpuscular HGB Conc 30.3 g/dl (31.0-37.0); Mean Corpuscular Hemoglobin 31.6 pg (25.0-35.0); Mean Corpuscular Volume 104 fL (80-100); Monocytes # (Auto) 0.4 Thou/mm3 (0.0-0.8); Monocytes % (Auto) 7 % (0-12); Neutrophils # (Auto) 3.4 Thou/mm3 (1.8-7.7); Neutrophils % (Auto) 63 % (37-80); Nucleated Red Blood Cell # 0.00 Thou/mm3 (0.00-0.00); Nucleated Red Blood Cell % 0 /100 WBC (0); Platelet Count 234 Thou/mm3 (140-440); RDW Standard Deviation 52.4 fL (36.4-46.3); Red Blood Count 3.26 Miln/mm3 (4.00-5.20); White Blood Count 5.3 Thou/mm3 (3.6-11.0)
[2025-03-30 15:54] LABS: Albumin, Serum 3.8 gm/dL (3.5-5.0); Albumin/Globulin Ratio 1.2 (1.2-2.2); Alkaline Phosphatase 89 U/L (46-116); Anion Gap 8 (7-16); Aspartate Amino Transferase 10 U/L (0-34); BUN/Creatinine Ratio 16 Ratio (12-20); Bilirubin,Total < 0.2 mg/dL (0.3-1.2); Blood Urea Nitrogen 21 mg/dL (9-23); Calcium 9.3 mg/dL (8.3-10.6); Calcium (Corrected) 9.5 mg/dL (8.5-10.1); Carbon Dioxide 24.4 mMol/L (20.0-31.0); Chloride 112 mMol/L (98-107); Creatinine (Component) 1.3 mg/dL (0.6-1.3); Estimated Creatinine Clearance 60.2 mL/min (>60); Globulin 3.1 gm/dL (2.3-3.5); Glucose 87 mg/dL (74-106); Osmolality,Calculated 288 (275-295); Potassium 4.2 mMol/L (3.4-5.1); Sodium 144 mMol/L (136-145); Total Protein 6.9 gm/dL (5.7-8.2); eGFR 50 See Note
[2025-03-30 15:59] LABS: Alanine Aminotransferase 7 U/L (10-49)
--- NOTE | 2025-03-30 17:24 | PC.CC ---
Clinic Assistant (SELENA) Christina contacted by Radha requesting transportation for patient to return home. SW verified address with patient. SW contacted [facility] and spoke to passenger service representative, Jojo. Patient has a tentative pick and shovel man time of [phone], reference number: [id number].
== END 2025-03-30 18:31 | disposition home or self-care (01) ==
PROVIDERS: Registered Nurse General Practice; Emergency Provider Emergency Medicine; PCP Family Medicine
DX: N39.0 Urinary tract infection, site not specified (principal); R31.9 Hematuria, unspecified
CPT/HCPCS: 36415; 80053; 81001; 85025; 87077; 87086; 87186; 99283

== ENCOUNTER → 2025-04-09 | Outpatient (CLI) | payer MEDICARE, MEDICAID, SELFPAY ==
[2025-04-09 12:10] LABS: Misc Send Out* See Sep Rpt
[2025-04-09 13:12] LABS: Alanine Aminotransferase 9 U/L (10-49); Albumin, Serum 4.2 gm/dL (3.5-5.0); Albumin/Globulin Ratio 1.2 (1.2-2.2); Alkaline Phosphatase 104 U/L (46-116); Anion Gap 11 (7-16); Aspartate Amino Transferase 13 U/L (0-34); BUN/Creatinine Ratio 25 Ratio (12-20); Bilirubin,Total < 0.2 mg/dL (0.3-1.2); Blood Urea Nitrogen 27 mg/dL (9-23); Calcium 9.4 mg/dL (8.3-10.6); Calcium (Corrected) 9.4 mg/dL (8.5-10.1); Carbon Dioxide 22.2 mMol/L (20.0-31.0); Chloride 109 mMol/L (98-107); Creatinine (Component) 1.1 mg/dL (0.6-1.3); Globulin 3.6 gm/dL (2.3-3.5); Glucose 88 mg/dL (74-106); Osmolality,Calculated 287 (275-295); Potassium 4.5 mMol/L (3.4-5.1); Sodium 142 mMol/L (136-145); Total Protein 7.8 gm/dL (5.7-8.2); eGFR > 60 See Note
[2025-04-15 06:28] LABS: ACTH, Plasma* 10 pg/mL (6-50)
[2025-04-21 06:36] LABS: Aldosterone* 15 ng/dL; Cortisol,total,LC/MS/MS* 11.1 mcg/dL; DHEA Sulfate* 28 mcg/dL (19-231)
== END | disposition home or self-care (01) ==
PROVIDERS: PCP Nurse Practitioner Family; Referring Provider Internal Medicine; Visit Provider Internal Medicine
DX: D35.00 Benign neoplasm of unspecified adrenal gland (principal)
CPT/HCPCS: 36415; 80053; 82024; 82088; 82533; 82627

== ENCOUNTER 2025-04-21 15:28 | Emergency (ER) | payer MEDICARE, MEDICAID, SELFPAY ==
[2025-04-21 15:37] VITALS: BP 138/79; PULSE 91; RESP 17; TEMP 36.8; O2SAT 96; BMI 52.7
--- NOTE | 2025-04-21 15:53 | PC.NURSE ---
Patient to er via ems, h/o spina bifida, has deena. nephrostomy tubes and left was accidently cut by home health nurseErnie at bedside to evaluate, patiet denies pain and all othere symptoms.
--- NOTE | 2025-04-21 16:01 | PD.EDADULT ---
ED General RME/HPI General Chief complaint: Urogenital-Female Stated complaint: DEVICE MALFUNCTION Time Seen by Provider: 04/21/25 16:00 Arrival date/time: 04/21/25 15:28 CC: Accidental cutting of nephrostomy tube HPI patient presents to the ER via EMS with stable vital signs after home health nurse accidentally cut her nephrostomy tube leading to the bag. The patient states that nephrostomy tube has been draining without complication. The patient [place] well[place] to [place] has bilateral nephrostomy tubes and a urostomy bag secondary to chronic urolithiasis. The patient is morbidly obese and nonambulatory patient is awake alert has no complaints and states in the last several days she has had no complaints including shortness of breath difficulty breathing fever rigors nausea or vomiting. Related Data Home Medications ?Medication ?Instructions ?Recorded ?Confirmed albuterol sulfate 90 mcg/actuation 2 puff inhalation Q4HR PRN 05/25/23 01/17/25 aerosol inhaler Shortness Of Breath cholecalciferol (vitamin D3) 125 125 mcg PO QDAY 05/25/23 01/17/25 mcg (5,000 unit) tablet (Vitamin D3) escitalopram oxalate 20 mg tablet 20 mg PO QDAY 05/25/23 01/17/25 (Lexapro) fluticasone propionate 50 1 spray intranasal BID 05/25/23 01/17/25 mcg/actuation nasal spray,suspension loratadine 10 mg capsule 10 mg PO QDAY 05/25/23 01/17/25 potassium chloride 15 mEq 15 meq PO BID 05/25/23 01/17/25 tablet,extended release(part/cryst) docusate sodium 100 mg capsule 100 mg PO 1XD PRN Constipation 09/25/23 01/17/25 lactulose 10 gram/15 mL oral 15 - 30 ml PO PRN PRN Constipation 09/25/23 01/17/25 solution linaclotide 145 mcg capsule 145 mcg PO QAM 02/23/24 01/17/25 (Linzess) mupirocin 2 % topical ointment 1 applic topical DAILY 04/18/24 01/17/25 polyethylene glycol 3350 17 4 g PO QDAY 07/19/24 01/17/25 gram/dose oral powder (Miralax) zolpidem 10 mg tablet 10 mg PO QDAY 12/18/24 01/17/25 multivitamin 1 tab PO QDAY 01/17/25 01/17/25 Previous Rx's ?Medication ?Instructions ?Recorded ferrous sulfate 325 mg (65 mg 325 mg PO Q OTHER DAY 1 month #15 02/24/24 iron) tablet tabs ciprofloxacin HCl 500 mg tablet 500 mg PO QDAY #8 tabs 12/20/24 potas and sod citrate-citric acid 30 ml PO QDAY #473 mL 12/20/24 550 mg-500 mg-334 mg/5 mL oral soln Allergies Allergy/AdvReac Type Severity Reaction Status Date / Time vancomycin Allergy Severe RASH/ITCHIN Verified 04/21/25 15:54 G Review of Systems Review of Systems Narrative Review of Systems: GEN: No fever, no chills, no weight loss EYES: No discharge, no visual changes, no pain HEENT: No ear pain, no congestion, no sore throat PULM: No shortness of breath, no cough, no congestion CV: No chest pain, no dyspnea on exertion, no palpitations GI: No nausea, no vomiting, no diarrhea, no pain, no constipation : No frequency, no urgency, no dysuria MUSC/SKEL: No joint pain, no back pain SKIN: No rash PSYCH: No hallucinations, no depression HEME/LYMPH: No easy bleeding or bruising tendencies NEURO: No weakness, no headache Past Medical History Past Medical History NEUROLOGIC: Positive Neurological Disorders and Spina Bifida; Negative Seizures CARDIAC: Positive Cardiac Disorders, Cardiac Arrhythmia, Angina, Peripheral Vascular Disease and Cellulitis; Negative Congestive Heart Failure RESPIRATORY: Negative Chronic Obstructive Pulmonary Disease (COPD) or Asthma GASTROINTESTINAL: Positive Gastrointestinal Disorders, Obstructive Bowel, Gastroesophageal Reflux Disease and Obesity; Negative Hepatitis or Gall Bladder Disease GENITOURINARY: Positive Genitourinary Disorders and Kidney Stones; Negative Renal Disease REPRODUCTIVE: Negative Previous Pregnancies MUSCULOSKELETAL: Positive Musculoskeletal Disorders and Osteomyelitis ENDOCRINE: Negative Endocrine Disorders, Diabetes Mellitus Type 1 or Diabetes Mellitus Type 2 HEMATOLOGIC: Positive Blood Disorders and Anemia; Negative Sickle Cell Disease PSYCHO/SOCIAL: Positive Anxiety OTHER HISTORY: Positive Hospitalization, Autoimmune Disease, MRSA, Chicken Pox and Measles; Negative Shingles, Falls, Blood Transfusions, Blood Transfusion Reaction, Anesthesia Reactions, Chemotherapy, Radiation Therapy, Human Immunodeficiency Virus (HIV), Mumps, Rubella ([place] Measles), Pertussis, Clostridium Difficile or Cancer Family History FAMILY HISTORY: Positive Family Surgery; Negative Family Psychiatric Problems, Family Respiratory Disorders, Family Cardiac Disorders, Family Gastrointestinal Problems, Family Cancer or Family Anesthesia Reaction Surgical History SURGICAL: Positive Abdominal Surgery, Nephrectomy, Amputation, Brain Shunt, Lumpectomy and Hysterectomy; Negative Oral Surgery Social History SMOKING STATUS: Never smoker SUBSTANCE USE: does not use ED Exam Narrative Physical exam: [General: Morbidly obese not in any acute distress Head normocephalic HEENT: Within acceptable limits Neck is supple nontender Chest equal chest rise nontender to palpation Respiratory: Clear to auscultation no wheezes crackles or rubs CV: Rate rhythm is regular no murmurs rubs or clicks Abdomen is distended secondary to body habitus soft nontender no masses positive bowel sounds all 4 quadrants urostomy bag draining clear yellow urine. Back: Right nephrostomy site clean dry and intact with the tube leading to a brown bag draining cloudy yellow urine. Left nephrostomy tube at approximately 6 cm protruding from the back, currently sterilely taped. No active draining. Skin: Intact no petechiae rash induration ulceration or crepitus Extremities: Deconditioned. Flaccid lower extremities secondary to underlying chronic disease full range of motion of the upper extremities. Neuro: Awake alert oriented x3 Glascow coma 15 no focal deficits] Course Course Course Narrative: Patient will need to return in 24 hours for new nephrostomy tube to be replaced the nephrostomy tube that was cut. Quality Measures none Vital Signs Vital signs: Vital Signs Temperature 98.3 F 04/21/25 15:37 Pulse Rate 91 04/21/25 15:37 Respiratory Rate 17 04/21/25 15:37 Blood Pressure 138/79 H 04/21/25 15:37 Pulse Oximetry (%) 96 04/21/25 15:37 Oxygen Delivery Method Room Air 04/21/25 15:37 PROCEDURES: Procedure Comment Under sterile conditions in the left nephrostomy tube Stubb was removed from its sterile occlusive dressing. It was able to insert it into the drainage tube for a new sterile drainage bag without complication there is no active draining at that time. A closing address of applied patient tolerated the procedure well. Discharge Plan Plan Patient Disposition: HOME (Self Care) Patient condition on transfer: Stable Prescriptions/Referrals Prescriptions/Med Rec: No Action polyethylene glycol 3350 [Miralax] 17 gram/dose powder 4 g PO QDAY multivitamin Tablet 1 tab PO QDAY albuterol sulfate 90 mcg/actuation Hfa Aerosol Inhaler 2 puff INHALATION Q4HR PRN (Reason: Shortness Of Breath) fluticasone propionate 50 mcg/actuation [place],Suspension 1 spray INTRANASAL BID Rx Instructions: administer into each nostril escitalopram oxalate [Lexapro] 20 mg Tablet 20 mg PO QDAY potassium chloride 15 mEq Tablet,Er Particles/Crystals 15 meq PO BID cholecalciferol (vitamin D3) [Vitamin D3] 125 mcg (5,000 unit) Tablet 125 mcg PO QDAY loratadine 10 mg Capsule 10 mg PO QDAY lactulose 10 gram/15 mL solution 15 - 30 ml PO PRN PRN (Reason: Constipation) Patient Comments: TAKE 15 ML TO 30 ML BY MOUTH DAILY NEEDED FOR CONSTIPATION docusate sodium 100 mg capsule 100 mg PO 1XD PRN (Reason: Constipation) Patient Comments: TAKE ONE CAPSULE BY MOUTH EVERY DAY NEEDED Linzess 145 mcg capsule 145 mcg PO QAM ferrous sulfate 325 mg (65 mg iron) Tablet 325 mg PO Q OTHER DAY 30 Days Qty: 15 0RF mupirocin 2 % ointment 1 applic TOPICAL DAILY Patient Comments: APPLY TO THE AFFECTED AREA(S) EVERY DAY FOR INFECTION Rx Instructions: calcium alginate, adaptic and ABD pad zolpidem 10 mg tablet 10 mg PO QDAY Patient Comments: TAKE ONE TABLET BY MOUTH AT BEDTIME FOR SLEEP pot,sodium citrate-citric acid 550-500-334 mg/5 mL solution 30 ml PO QDAY Qty: 473 0RF Rx Instructions: Take 30ml once daily ciprofloxacin HCl 500 mg tablet 500 mg PO QDAY Qty: 8 0RF Rx Instructions: Take 1 tablet once daily for 8 days Problem List Clinical Impression: Malfunction of nephrostomy tube Patient/Caregiver Discharge Instructions Other Activity Instructions:: Return in 24 hours for nephrostomy tube replacement. Education Materials: ED Mckeon Catheter, Care Print Language: Swedish Stand Alone Forms: Teresa Award Info., Patient Portal Info Letter PA/[employer] CONSULTANT Supervising Physician PA/[employer] CONSULTANT Supervising Physician: Ernie Mejia [facility] Clinical Information Provided by: patient and EMS Medical Records reviewed [facility] and EMS Meds/Rx considered, not ordered None Labs/Rad/Tests considered, not ordered None Chronic Illness/Social Conditions Explain: Spina bifida lower extremity flaccidity
--- NOTE | 2025-04-21 16:57 | PC.NURSE ---
300ml drained from right nephrostomy tube, no drainage noted in left nephrostom tube after RADIATOR FITTER attached new bag, Provider made aware.
[2025-04-21 18:17] VITALS: BP 126/81; PULSE 97; RESP 16; TEMP 36.9; O2SAT 95
--- NOTE | 2025-04-21 18:21 | PC.NURSE ---
Patient discharged, awaiting transport back home, transport set up via ems at 2100 or sooner per dispatch. Charge nurse Praveen made aware.
[2025-04-21 19:27] VITALS: BP 142/85; PULSE 98; RESP 17; TEMP 37; O2SAT 95
[2025-04-21 20:30] VITALS: BP 142/85; PULSE 92; RESP 16; TEMP 37.5; O2SAT 98
== END 2025-04-21 20:32 | disposition home or self-care (01) ==
PROVIDERS: Emergency Provider Family Medicine; PCP Family Medicine
DX: T83.012A Breakdown (mechanical) of nephrostomy catheter, initial encounter (principal); Y73.2 Prosthetic and other implants, materials and accessory gastroenterology and urology devices associated with adverse incidents; E66.01 Morbid (severe) obesity due to excess calories
CPT/HCPCS: 50435; 99281

== ENCOUNTER 2025-04-22 12:21 | Emergency (ER) | payer MEDICARE, MEDICAID, SELFPAY ==
[2025-04-22 12:40] VITALS: BP 134/75; PULSE 84; RESP 16; TEMP 36.6; O2SAT 95
[2025-04-22 12:42] VITALS: BMI 52.7
--- NOTE | 2025-04-22 12:50 | PD.EDRME ---
Rapid Medical Screening Exam RME Arrival date/time: 04/22/25 12:21 49-year-old female with a history of a nephrostomy tube due 2 kidney stones presents to the emergency room with a chief complaint of an accidental cutting of her nephrostomy tube by her wound care nurse. I have greeted and performed a focused initial assessment of this patient. A comprehensive ED assessment and evaluation of the patient, analysis of all test results, and completion of the medical decision making process will be conducted by additional ED providers. Chief Complaint: General Adult/Misc Complain Time Seen by Provider: 04/22/25 12:28 Vital signs: Vital Signs Temperature 97.9 F 04/22/25 12:40 Pulse Rate 84 04/22/25 12:40 Respiratory Rate 16 04/22/25 12:40 Blood Pressure 134/75 H 04/22/25 12:40 Pulse Oximetry (%) 95 04/22/25 12:40 Oxygen Delivery Method Room Air 04/22/25 12:40 Vital signs reviewed by provider: Yes Exam: Soft nontender abdomen. Soft nontender bladder Clear bilateral lung sounds GCS of 15 alert and oriented x 3 Clinical Impression: Accidental dislodgment of nephrostomy tube
[2025-04-22 16:03] LABS: Basophils # (Auto) 0.0 Thou/mm3 (0.0-0.2); Basophils % (Auto) 0 % (0-2.5); Eosinophils # (Auto) 0.2 Thou/mm3 (0.0-0.5); Eosinophils % (Auto) 4 % (0-10); Hematocrit 38.2 % (36.0-46.0); Hemoglobin 11.8 g/dL (12.0-16.0); Immature Granulocytes Auto 0.01 Thou/mm3 (0.00-0.00); Lymphocytes # (Auto) 1.2 Thou/mm3 (1.0-4.8); Lymphocytes % (Auto) 19 % (10-50); Mean Corpuscular HGB Conc 30.9 g/dl (31.0-37.0); Mean Corpuscular Hemoglobin 31.6 pg (25.0-35.0); Mean Corpuscular Volume 102 fL (80-100); Monocytes # (Auto) 0.4 Thou/mm3 (0.0-0.8); Monocytes % (Auto) 6 % (0-12); Neutrophils # (Auto) 4.3 Thou/mm3 (1.8-7.7); Neutrophils % (Auto) 70 % (37-80); Nucleated Red Blood Cell # 0.00 Thou/mm3 (0.00-0.00); Nucleated Red Blood Cell % 0 /100 WBC (0); Platelet Count 249 Thou/mm3 (140-440); RDW Standard Deviation 52.0 fL (36.4-46.3); Red Blood Count 3.74 Miln/mm3 (4.00-5.20); White Blood Count 6.1 Thou/mm3 (3.6-11.0)
[2025-04-22 16:20] LABS: Alanine Aminotransferase 29 U/L (10-49); Albumin, Serum 4.6 gm/dL (3.5-5.0); Albumin/Globulin Ratio 1.4 (1.2-2.2); Alkaline Phosphatase 118 U/L (46-116); Anion Gap 11 (7-16); Aspartate Amino Transferase 19 U/L (0-34); BUN/Creatinine Ratio 28 Ratio (12-20); Bilirubin,Total 0.2 mg/dL (0.3-1.2); Blood Urea Nitrogen 37 mg/dL (9-23); Calcium 9.5 mg/dL (8.3-10.6); Calcium (Corrected) 9.5 mg/dL (8.5-10.1); Carbon Dioxide 23.6 mMol/L (20.0-31.0); Chloride 109 mMol/L (98-107); Creatinine (Component) 1.3 mg/dL (0.6-1.3); Estimated Creatinine Clearance 63.0 mL/min (>60); Globulin 3.4 gm/dL (2.3-3.5); Glucose 88 mg/dL (74-106); Osmolality,Calculated 294 (275-295); Potassium 4.3 mMol/L (3.4-5.1); Sodium 144 mMol/L (136-145); Total Protein 8.0 gm/dL (5.7-8.2); eGFR 50 See Note
[2025-04-22 16:36] LABS: INR 1.0 (0.9-1.3); Partial Thromboplastin Time 31.7 Seconds (22.0-36.0); Prothrombin Time 10.8 Seconds (9.0-12.2)
[2025-04-22 17:38] VITALS: BP 147/84; PULSE 83; RESP 15; TEMP 36.6; O2SAT 98
--- NOTE | 2025-04-22 18:21 | PD.EDADULT ---
ED General RME/HPI General Chief complaint: General Adult/Misc Complain Stated complaint: REPLACE NEPHROSTROMY TUBE BY IR; HERE YESTERDAY Time Seen by Provider: 04/22/25 12:28 Arrival date/time: 04/22/25 12:21 CC: Here for nephrostomy tube replacement. Patient sat in the waiting room for 4-1/2 hours once she was brought back it was determined that the interventional radiologist has left for the day. The patient is exceedingly upset as she was seen yesterday for an accidental cut off of a nephrostomy tube. She reports that the nephrostomy tube cut off which was attached to a nephrostomy bag with a very continues to drain however the tube needs to be replaced patient denies fever chills chest pain shortness of breath or difficulty breathing. Patient is awake and alert. RME / HPI RME / HPI narrative: 04/22/25 12:21 49-year-old female with a history of a nephrostomy tube due 2 kidney stones presents to the emergency room with a chief complaint of an accidental cutting of her nephrostomy tube by her wound care nurse. I have greeted and performed a focused initial assessment of this patient. A comprehensive ED assessment and evaluation of the patient, analysis of all test results, and completion of the medical decision making process will be conducted by additional ED providers. Exam: Soft nontender abdomen. Soft nontender bladder Clear bilateral lung sounds GCS of 15 alert and oriented x 3 Impression: Accidental dislodgment of nephrostomy tube Related Data Home Medications ?Medication ?Instructions ?Recorded ?Confirmed albuterol sulfate 90 mcg/actuation 2 puff inhalation Q4HR PRN 05/25/23 01/17/25 aerosol inhaler Shortness Of Breath cholecalciferol (vitamin D3) 125 125 mcg PO QDAY 05/25/23 01/17/25 mcg (5,000 unit) tablet (Vitamin D3) escitalopram oxalate 20 mg tablet 20 mg PO QDAY 05/25/23 04/23/25 (Lexapro) fluticasone propionate 50 1 spray intranasal BID 05/25/23 04/23/25 mcg/actuation nasal spray,suspension loratadine 10 mg capsule 10 mg PO QDAY 05/25/23 04/23/25 potassium chloride 15 mEq 15 meq PO BID 05/25/23 01/17/25 tablet,extended release(part/cryst) docusate sodium 100 mg capsule 100 mg PO 1XD PRN Constipation 09/25/23 01/17/25 lactulose 10 gram/15 mL oral 15 - 30 ml PO PRN PRN Constipation 09/25/23 01/17/25 solution linaclotide 145 mcg capsule 145 mcg PO QAM 02/23/24 04/23/25 (Linzess) mupirocin 2 % topical ointment 1 applic topical DAILY 04/18/24 01/17/25 polyethylene glycol 3350 17 4 g PO QDAY 07/19/24 01/17/25 gram/dose oral powder (Miralax) zolpidem 10 mg tablet 10 mg PO QDAY 12/18/24 01/17/25 multivitamin 1 tab PO QDAY 01/17/25 04/23/25 potassium citrate 15 mEq (1,620 1,620 mg PO BID 04/23/25 04/23/25 mg) tablet,extended release Previous Rx's ?Medication ?Instructions ?Recorded ferrous sulfate 325 mg (65 mg 325 mg PO Q OTHER DAY 1 month #15 02/24/24 iron) tablet tabs ciprofloxacin HCl 500 mg tablet 500 mg PO QDAY #8 tabs 12/20/24 pot[place] and sod citrate-citric acid 30 ml PO QDAY #473 mL 12/20/24 550 mg-500 mg-334 mg/5 mL oral soln cefdinir 300 mg capsule 300 mg PO BID #14 caps 04/23/25 Allergies Allergy/AdvReac Type Severity Reaction Status Date / Time vancomycin Allergy Severe RASH/ITCHIN Verified 04/22/25 12:25 G Review of Systems Review of Systems Narrative Review of Systems: GEN: No fever, no chills, no weight loss EYES: No discharge, no visual changes, no pain HEENT: No ear pain, no congestion, no sore throat PULM: No shortness of breath, no cough, no congestion CV: No chest pain, no dyspnea on exertion, no palpitations GI: No nausea, no vomiting, no diarrhea, no pain, no constipation : No frequency, no urgency, no dysuria MUSC/SKEL: No joint pain, no back pain SKIN: No rash PSYCH: No hallucinations, no depression HEME/LYMPH: No easy bleeding or bruising tendencies NEURO: No weakness, no headache Past Medical History Past Medical History NEUROLOGIC: Positive Neurological Disorders and Spina Bifida; Negative Seizures CARDIAC: Positive Cardiac Disorders, Cardiac Arrhythmia, Angina, Peripheral Vascular Disease and Cellulitis; Negative Congestive Heart Failure RESPIRATORY: Negative Chronic Obstructive Pulmonary Disease (COPD) or Asthma GASTROINTESTINAL: Positive Gastrointestinal Disorders, Obstructive Bowel, Gastroesophageal Reflux Disease and Obesity; Negative Hepatitis or Gall Bladder Disease GENITOURINARY: Positive Genitourinary Disorders and Kidney Stones; Negative Renal Disease REPRODUCTIVE: Negative Previous Pregnancies MUSCULOSKELETAL: Positive Musculoskeletal Disorders and Osteomyelitis ENDOCRINE: Negative Endocrine Disorders, Diabetes Mellitus Type 1 or Diabetes Mellitus Type 2 HEMATOLOGIC: Positive Blood Disorders and Anemia; Negative Sickle Cell Disease PSYCHO/SOCIAL: Positive Anxiety OTHER HISTORY: Positive Hospitalization, Autoimmune Disease, MRSA, Chicken Pox and Measles; Negative Shingles, Falls, Blood Transfusions, Blood Transfusion Reaction, Anesthesia Reactions, Chemotherapy, Radiation Therapy, Human Immunodeficiency Virus (HIV), Mumps, Rubella (Thai Measles), Pertussis, Clostridium Difficile or Cancer Family History FAMILY HISTORY: Positive Family Surgery; Negative Family Psychiatric Problems, Family Respiratory Disorders, Family Cardiac Disorders, Family Gastrointestinal Problems, Family Cancer or Family Anesthesia Reaction Surgical History SURGICAL: Positive Abdominal Surgery, Nephrectomy, Amputation, Brain Shunt, Lumpectomy and Hysterectomy; Negative Oral Surgery Social History SMOKING STATUS: Never smoker SUBSTANCE USE: does not use ED Exam Narrative Physical exam: [General: Morbidly obese not in any acute distress Head normocephalic HEENT: Within acceptable limits Neck is supple nontender Chest equal chest rise nontender to palpation Respiratory: Clear to auscultation no wheezes crackles or rubs CV: Rate rhythm is regular no murmurs rubs or clicks Abdomen is grossly distended secondary to body habitus soft nontender no masses positive bowel sounds all 4 quadrants Back: No CVA tenderness no spinous process tenderness from cervical spine thoracic and lumbar spine Skin: Urostomy bag and nephrostomy tube sites are clean dry intact both nephrostomy bags in the urostomy bag are draining yellow urine. Buttock decubitus. Otherwise skin is intact no petechiae rash induration ulceration or crepitus Extremities: Lower extremities are flaccid secondary to paralysis due to spina bifida moving upper extremities without complication. Neuro: Awake alert oriented x3 Glascow coma 15 no focal deficits] Course Course Course Narrative: Patient has an order in now for nephrostomy tube in the right side to be replaced. The patient's care clinical presentation presented to Dr. Hamilton who will assume care of the patient Quality Measures none Orders Category Date Time Status NPO NOW Care 04/22/25 12:50 Completed Saline [Insert IV] NOW Care 04/23/25 07:25 Completed Diet NPO (NOW) Diet 04/22/25 12:50 Active IR nephrostomy Stat Exams 04/22/25 Ordered IR nephrostomy Stat Exams 04/23/25 Completed CBC Stat Lab 04/22/25 15:23 Completed CMP [Comprehensive Metabolic Panel] Stat Lab 04/22/25 15:23 Completed PT [Prothrombin Time with INR] Stat Lab 04/22/25 15:23 Completed PTT [Partial Thromboplastin Time] Stat Lab 04/22/25 15:23 Completed UA, C/S IF [Urinalysis, C/S if Indicated] Stat Lab 04/22/25 21:35 Completed Urine Culture Stat Lab 04/22/25 21:35 Received Lidocaine 1% Pf 30 ml [Xylocaine 1% Pf 30 ml] Med 04/23/25 13:38 Discontinued 14 ml EPID X1 ONE Lidocaine 1% Pf 30 ml [Xylocaine 1% Pf 30 ml] Med 04/23/25 12:31 Discontinued 30 ml .ROUTE .STK-MED ONE Linzess Med 04/23/25 09:00 Discontinued 145 mcg PO DAILY NALOXONE INJ (Vial) [Narcan Inj (Vial)] Med 04/23/25 12:31 Discontinued 0.4 mg .ROUTE .STK-MED ONE Ondansetron Inj [Zofran Inj] Med 04/23/25 12:31 Discontinued 4 mg .ROUTE .STK-MED ONE Patient's Own Med [Patient's Own Medication] 1 ea Med 04/23/25 12:30 Discontinued Pre-Mixed Bottle [Pre-mixed Bottle] 1 btl PO QD Sodium Chloride 0.9% 1000 ml [Ns] 1,000 ml Med 04/23/25 07:25 Discontinued IV 999 mls/hr Zolpidem [Ambien] Med 04/22/25 22:56 Discontinued 10 mg PO X1 ONE cefTRIAXone/D5w 1gm IV premix [Rocephin/D5w 1gm IV Med 04/23/25 07:25 Discontinued premix] 1 gm in 50 ml IV X1 fentaNYL INJ [Sublimaze Inj] Med 04/23/25 12:31 Discontinued 100 mcg .ROUTE .STK-MED ONE fentaNYL INJ [Sublimaze Inj] Med 04/23/25 13:23 Discontinued 100 mcg .ROUTE .STK-MED ONE fentaNYL INJ [Sublimaze Inj] Med 04/23/25 13:38 Discontinued 100 mcg IVP X1 ONE Late Tray Request Routine Oth 04/22/25 18:29 Active Vital Signs Vital signs: Vital Signs Temperature 97.9 F 04/22/25 12:40 Pulse Rate 84 04/22/25 12:40 Respiratory Rate 16 04/22/25 12:40 Blood Pressure 134/75 H 04/22/25 12:40 Pulse Oximetry (%) 95 04/22/25 12:40 Oxygen Delivery Method Room Air 04/22/25 12:40 Discharge Plan Plan Patient Disposition: HOME (Self Care) Prescriptions/Referrals Prescriptions/Med Rec: New cefdinir 300 mg capsule 300 mg PO BID Qty: 14 0RF No Action polyethylene glycol 3350 [Miralax] 17 gram/dose powder 4 g PO QDAY multivitamin Tablet 1 tab PO QDAY albuterol sulfate 90 mcg/actuation Hfa Aerosol Inhaler 2 puff INHALATION Q4HR PRN (Reason: Shortness Of Breath) fluticasone propionate 50 mcg/actuation [place],Suspension 1 spray INTRANASAL BID Rx Instructions: administer into each nostril escitalopram oxalate [Lexapro] 20 mg Tablet 20 mg PO QDAY potassium chloride 15 mEq Tablet,Er Particles/Crystals 15 meq PO BID cholecalciferol (vitamin D3) [Vitamin D3] 125 mcg (5,000 unit) Tablet 125 mcg PO QDAY loratadine 10 mg Capsule 10 mg PO QDAY lactulose 10 gram/15 mL solution 15 - 30 ml PO PRN PRN (Reason: Constipation) Patient Comments: TAKE 15 ML TO 30 ML BY MOUTH DAILY NEEDED FOR CONSTIPATION docusate sodium 100 mg capsule 100 mg PO 1XD PRN (Reason: Constipation) Patient Comments: TAKE ONE CAPSULE BY MOUTH EVERY DAY NEEDED potassium citrate 15 mEq tablet extended release 1,620 mg PO BID Patient Comments: TAKE 1 TABLET BY MOUTH TWICE A DAY Linzess 145 mcg capsule 145 mcg PO QAM ferrous sulfate 325 mg (65 mg iron) Tablet 325 mg PO Q OTHER DAY 30 Days Qty: 15 0RF mupirocin 2 % ointment 1 applic TOPICAL DAILY Patient Comments: APPLY TO THE AFFECTED AREA(S) EVERY DAY FOR INFECTION Rx Instructions: calcium alginate, adaptic and ABD pad zolpidem 10 mg tablet 10 mg PO QDAY Patient Comments: TAKE ONE TABLET BY MOUTH AT BEDTIME FOR SLEEP pot,sodium citrate-citric acid 550-500-334 mg/5 mL solution 30 ml PO QDAY Qty: 473 0RF Rx Instructions: Take 30ml once daily ciprofloxacin HCl 500 mg tablet 500 mg PO QDAY Qty: 8 0RF Rx Instructions: Take 1 tablet once daily for 8 days Referrals: Carol Crowe [Primary Care Provider] - In 1 week Problem List Clinical Impression: Displacement of nephrostomy tube, UTI (urinary tract infection) Patient/Caregiver Discharge Instructions Discharge Activity: activity as tolerated Education Materials: Percutaneous Nephrostomy, ED CYSTITIS Female Adult Additional Instructions: Discharge instructions from Dr. Crowe: 1.? Fortunately, your left nephrostomy tube was successfully replaced. 2.? Take cefdinir to kill the germs causing your severe urine infection. 3.? For good hydration, increase oral fluid and maintain clear urine.? If dark or yellow, increase oral fluid. 4.? See a private doctor on 04/26/2025 for recheck. Ask to check the final urine culture results from today to make sure cefdinir doesn't need to be changed due to resistance. 5.? Seek immediate medical care with worsening, fever, or with any concerns. Print Language: Luxembourger Stand Alone Forms: Teresa Award Info., Patient Portal Info Letter MDM Clinical Information Provided by: patient Medical Records reviewed [facility] Meds/Rx considered, not ordered None Labs/Rad/Tests considered, not ordered None Chronic Illness/Social Conditions Explain: Spina bifida's lower extremity paralysis Labs Labs: interpreted by ia Lab(s) Interpretation(s): CBC shows no acute leukocytosis mild anemia no thrombocytopenia Coags within acceptable limits CMP shows no significant electrolyte imbalances a BUN of 37 creatinine 1.3. Imaging Imaging interpretation: none Medication Administration(s) Medication Administration History Discontinued Medications Linzess 145 Mcg (Capsule) 0 ea PO QD CARLOS Stop: 05/23/25 12:29 Last Admin: 04/23/25 14:09 Dose: 1 capsule Documented By: BY Fentanyl Citrate (Fentanyl Cit Inj 50 Mcg/Ml Amp 2ml) Confirm Administered Dose 100 mcg .ROUTE .STK-MED ONE Stop: 04/23/25 12:32 Last Admin: 04/23/25 13:02 Dose: Not Given Documented By: DL Non-Admin Reason: Duplicate Medication on eMAR Fentanyl Citrate (Fentanyl Cit Inj 50 Mcg/Ml Amp 2ml) Confirm Administered Dose 100 mcg .ROUTE .STK-MED ONE Stop: 04/23/25 13:24 Last Admin: 04/23/25 13:50 Dose: Not Given Documented By: DL Non-Admin Reason: Duplicate Medication on eMAR Fentanyl Citrate (Fentanyl Cit Inj 50 Mcg/Ml Amp 2ml) 100 mcg IVP X1 ONE Stop: 04/23/25 13:39 Last Admin: 04/23/25 13:39 Dose: 100 mcg Documented By: DL Ceftriaxone Sodium/Dextrose (Rocephin/D5w 1gm Iv Premix) 1 gm in 50 mls @ 100 mls/hr IV X1 ONE Stop: 04/23/25 07:54 Last Infusion: 04/23/25 09:15 Dose: Infused Documented By: Admin: 04/23/25 08:45 Dose: 100 mls/hr Documented By: BY Sodium Chloride (Ns) 1,000 mls @ 999 mls/hr IV .Q1H1M ONE Stop: 04/23/25 08:25 Last Infusion: 04/23/25 09:00 Dose: Infused Documented By: Admin: 04/23/25 08:46 Dose: 999 mls/hr Documented By: BY Lidocaine HCl (Lidocaine Inj Pf 1% 30 Ml Vial) Confirm Administered Dose 30 ml .ROUTE .STK-MED ONE Stop: 04/23/25 12:32 Last Admin: 04/23/25 13:02 Dose: Not Given Documented By: DL Non-Admin Reason: Duplicate Medication on eMAR Lidocaine HCl (Lidocaine Inj Pf 1% 30 Ml Vial) 14 ml EPID X1 ONE Stop: 04/23/25 13:39 Last Admin: 04/23/25 13:39 Dose: 14 ml Documented By: DL Comments: given by Dr Worthington Naloxone HCl (Naloxone Inj 0.4 Mg/Ml Vial) Confirm Administered Dose 0.4 mg .ROUTE .STK-MED ONE Stop: 04/23/25 12:32 Last Admin: 04/23/25 13:02 Dose: Not Given Documented By: DL Non-Admin Reason: Duplicate Medication on eMAR Non-Formulary Medication (Linzess) 145 mcg PO DAILY CARLOS Stop: 05/23/25 08:59 Last Admin: 04/23/25 14:10 Dose: Not Given Documented By: BY Non-Admin Reason: Duplicate Medication on eMAR Ondansetron HCl (Ondansetron Inj 2 Mg/Ml Inj 2 Ml) Confirm Administered Dose 4 mg .ROUTE .STK-MED ONE Stop: 04/23/25 12:32 Last Admin: 04/23/25 13:03 Dose: Not Given Documented By: DL Non-Admin Reason: Duplicate Medication on eMAR Zolpidem Tartrate (Zolpidem 5 Mg Tablet) 10 mg PO X1 ONE Stop: 04/22/25 22:57 Last Admin: 04/22/25 23:38 Dose: 10 mg Documented By: JOEL
[2025-04-22 18:32] VITALS: BP 130/75; PULSE 88; RESP 18; TEMP 36.7; O2SAT 96
[2025-04-22 19:26] VITALS: BP 121/92; PULSE 94; RESP 15; O2SAT 95
[2025-04-22 22:04] LABS: Collection Type, Urine Catheter; Squamous Epithelial Cell,Urine 0 /hpf (0-5)
[2025-04-22 22:24] LABS: Bacteria,Urine 4+; Bilirubin,Urine Negative (Negative); Blood,Urine 2+ (Negative); Glucose, Urine Negative (Negative); Ketones,Urine Negative (Negative); Leukocyte Esterase,Urine Positive (Negative); Nitrite,Urine Negative (Negative); PH,Urine 8.0 (5.0-7.0); Protein,Urine 1+ (Neg - Trace); RBC,Urine 32 /hpf (0-3); Specific Gravity,Urine 1.007 (1.001-1.035); Urobilinogen,Urine Negative mg/dL (0.0-1.0); WBC,Urine 243 /hpf (0-5)
[2025-04-22 22:25] LABS: Clarity,Urine Turbid (Clear/Hazy); Color,Urine Lt-Yellow (Lt Yel-Yel); Culture Indicated,Urine Yes
[2025-04-22] MEDS: ZOLPIDEM 5 MG TABLET 10 MG PO (23:38)
[2025-04-23] VITALS (10 sets, daily range): BP systolic 101–161; BP diastolic 66–95; PULSE 80–99; RESP 17–18; TEMP 36.6–36.8; O2SAT 94–98
--- NOTE | 2025-04-23 | XR_ITS ---
EXAMINATION: IR nephrostomy tube exchange Fluoroscopy AP abdomen 2 views Nephrostogram Date and time: April 23, 2025, 12:43 p.m. INDICATIONS: The patient's left nephrostomy tube was lacerated and transected requiring replacement TECHNIQUE AND FINDINGS: Informed consent provided Timeout performed. Skin prepped over the entrance site of the damaged left nephrostomy catheter 1% lidocaine administered for local anesthesia Successful placement of a 035 wire guided through the damaged nephrostomy catheter down the left ureter Replacement with an 8 Vietnamese pigtail nephrostomy drainage catheter in proper position in the renal calyces with hand-injection 10 cc Gastrografin Estimated blood loss 2 cc IMPRESSION: Successful IR nephrostomy tube exchange, new nephrostomy tube in satisfactory position Fluoroscopy 0.8-minute radiation dose 46.65 mGy 2 spot fluoroscopic abdomen films
--- NOTE | 2025-04-23 06:10 | PD.EDADDENDU ---
Emergency Room Addendum Addendum Narrative: 2300: Care assumed from Ernie Mejia NP (emergency mid-level provider). Past medical, surgical, social and family history reviewed. Vitals and home medications reviewed. Results and treatment plan discussed. I will assume the care of the patient at this time and will follow the patient, pending nephrostomy replacement. The following addendum documentation note is intended to reflect any pending information, findings, or radiology results not included in the patient?s initial chart by the previous shift scribe. 0600: Care assumed by Dr. Crowe (emergency physician). Past medical, surgical, social and family history reviewed. Vitals and home medications reviewed. Results and treatment plan discussed. They will assume the care of the patient at this time and will follow the patient, pending nephrostomy replacement.
--- NOTE | 2025-04-23 08:04 | PD.EDADDENDU ---
Emergency Room Addendum <Maldonado Crowe MD - Last Filed: 04/23/25 15:19> Addendum Narrative: I took over the care from previous shift physician at 06:00 AM on 04/23/2025.? See previous notes for complete H & P and ED course.?? I reviewed all diagnostic test results. Blood tests are unremarkable. UA showed positive leukocyte esterase, 32 RBC, 243 WBC, and 4+ bacteria. Diagnoses include: Displacement of nephrostomy tube UTI Treatment here included: Successful nephrostomy tube replacement IVF Rocephin 1 gram IV Recommend outpatient management. Based on my best medical judgment, made decision no further evaluation or treatment indicated at this time.? Patient understands and agrees to the discharge instructions customized and printed, see below. Discharge instructions from Dr. Crowe: 1.? Fortunately, your left nephrostomy tube was successfully replaced. 2.? Take cefdinir to kill the germs causing your severe urine infection. 3.? For good hydration, increase oral fluid and maintain clear urine.? If dark or yellow, increase oral fluid. 4.? See a private doctor on 04/26/2025 for recheck. Ask to check the final urine culture results from today to make sure cefdinir doesn't need to be changed due to resistance. 5.? Seek immediate medical care with worsening, fever, or with any concerns. Maldonado Crowe MD <Amberly Lonnie - Last Filed: 04/23/25 14:14> Addendum Narrative: I took over the care from previous shift physician at 06:00 AM on 04/23/2025.? See previous notes for complete H & P and ED course.?? I reviewed all diagnostic test results. Blood tests are unremarkable. Urine tests?show urinary tract infection with 243 WBC, positive leukocyte esterase, 4+ bacteria. Diagnoses include: Displacement of nephrostomy tube UTI Treatment here included: IV fluids Rocephin 1gm IV Based on my best medical judgment, made decision no further evaluation or treatment indicated at this time.? Patient understands and agrees to the discharge instructions customized and printed, see below. Discharge instructions from Dr. Crowe: 1.? Fortunately, your left nephrostomy tube was successfully replaced. 2.? Take cefdinir to kill the germs causing your severe urine infection. 3.? For good hydration, increase oral fluid and maintain clear urine.? If dark or yellow, increase oral fluid. 4.? See a private doctor on 04/26/2025 for recheck. Ask to check the final urine culture results from today to make sure cefdinir doesn't need to be changed due to resistance. 5.? Seek immediate medical care with worsening, fever, or with any concerns. Maldonado Crowe MD
[2025-04-23] MEDS: cefTRIAXone/D5w 1gm IV premix 1 GM/50 ML BAG IV (08:45)
[2025-04-23] MEDS: SODIUM CHLORIDE 0.9% 1000 ML 1,000 ML 999 ML IV (08:46)
--- NOTE | 2025-04-23 12:59 | PC.NURSE ---
patient taken to IR for procedure
[2025-04-23] MEDS: fentaNYL CIT INJ 50 mCg/ML AMP 2ML 100 MCG IVP (13:39)
[2025-04-23] MEDS: LIDOCAINE INJ PF 1% 30 ML VIAL 14 ML EPID (13:39)
--- NOTE | 2025-04-23 14:02 | PC.NURSE ---
patient returned from IR , patient states she is feeling ok, vitals within normal
[2025-04-23] MEDS: LINZESS 145 MCG CAPSULE PO (14:09)
--- NOTE | 2025-04-23 14:13 | PC.NURSE ---
report obtained from Amsita DICKSON patient was picked up from ER room 18 via gurney patient was then taken to IR Called for consent, DR Worthington explained the procedure to patient, DR and patient both signed consent patient prepped and draped Time out was completed with entire team present (SEE MAR for medications given) procedure completed without any complications, patient is stable report given to Asmita DICKSON over the phone and i will personally take patient back to ER
--- NOTE | 2025-04-23 14:30 | PC.CC ---
1430-AGRICULTURAL EQUIPMENT SALES MANAGER Hand Nailer Shantelle Granados attempted to pts sister, Person to Notify, but no answer. AGRICULTURAL EQUIPMENT SALES MANAGER then contacted Marleny, pt family member to inform the family that pt will be d/c and transported home. AGRICULTURAL EQUIPMENT SALES MANAGER confirmed with Marleny that someone will be home to accept the pt. AGRICULTURAL EQUIPMENT SALES MANAGER contacted [facility] to make transport arrangements for pt to return home. [facility] was able to schedule the appointment for a p/u eta of 1511.
--- NOTE | 2025-04-23 14:38 | PC.SS ---
This RIP SAW OPERATOR spring intern schedule transportation with city transport for patient. blooming mill supervisor time will be 1511 charge nurse notified, Friend Marleny Dietz called and was notified of patient return home via city transport.
== END 2025-04-23 15:12 | disposition home or self-care (01) ==
PROVIDERS: Nurse Practitioner Family; Emergency Provider Emergency Medicine; PCP Nurse Practitioner Family
DX: Z43.6 Encounter for attention to other artificial openings of urinary tract (principal)
CPT/HCPCS: 50435; 36415; 74425; 80053; 81001; 85025; 85610; 85730; 87077; 87086; 87186; 96365; 96375; 99283; C1729; C1769; J0696; J3010; J3490; J7030; J7050; Q9958; A9270

== ENCOUNTER → 2025-04-25 | Outpatient (CLI) | payer MEDICARE, MEDICAID, SELFPAY ==
--- NOTE | 2025-04-25 10:00 | XR_ITS ---
Examination: Breast ultrasound complete, bilateral Date and time of exam: April 25, 2025, 0931 hours INDICATIONS: Screening examination, family history breast cancer Technique: Real-time grayscale ultrasonographic imaging bilateral breasts, including all 4 quadrants as well as nipple retroareolar and axillary regions. Findings: Sonographic images right breast No cystic or solid mass Sonographic images left breast 3:00 mass irregular margins with ductal extension, 13 x 9 x 11 mm IMPRESSION: BI-RADS Category 4: Suspicious for malignancy Suspicious mass 3 o'clock position left breast, biopsy is needed to exclude breast carcinoma, this mass is amenable to ultrasound-guided breast biopsy for diagnosis Also recommend diagnostic mammography follow-up
[2025-04-25 11:02] LABS: Basophils # (Auto) 0.0 Thou/mm3 (0.0-0.2); Basophils % (Auto) 1 % (0-2.5); Eosinophils # (Auto) 0.3 Thou/mm3 (0.0-0.5); Eosinophils % (Auto) 5 % (0-10); Hematocrit 37.3 % (36.0-46.0); Hemoglobin 11.5 g/dL (12.0-16.0); Immature Granulocytes Auto 0.01 Thou/mm3 (0.00-0.00); Immature Reticulocyte Fraction 14.0 % (3.0-15.9); Lymphocytes # (Auto) 1.1 Thou/mm3 (1.0-4.8); Lymphocytes % (Auto) 21 % (10-50); Mean Corpuscular HGB Conc 30.8 g/dl (31.0-37.0); Mean Corpuscular Hemoglobin 31.3 pg (25.0-35.0); Mean Corpuscular Volume 101 fL (80-100); Monocytes # (Auto) 0.4 Thou/mm3 (0.0-0.8); Monocytes % (Auto) 7 % (0-12); Neutrophils # (Auto) 3.5 Thou/mm3 (1.8-7.7); Neutrophils % (Auto) 67 % (37-80); Nucleated Red Blood Cell # 0.00 Thou/mm3 (0.00-0.00); Nucleated Red Blood Cell % 0 /100 WBC (0); Platelet Count 230 Thou/mm3 (140-440); RDW Standard Deviation 51.4 fL (36.4-46.3); Red Blood Count 3.68 Miln/mm3 (4.00-5.20); Reticulocyte % (Auto) 1.9 % (0.5-1.5); Reticulocyte Absolute Auto 71.4 Biln/L (25.0-75.0); Reticulocyte Hgb Content 30.2 pg (28.0-35.0); White Blood Count 5.2 Thou/mm3 (3.6-11.0)
[2025-04-25 11:28] LABS: Alanine Aminotransferase 20 U/L (10-49); Albumin, Serum 4.6 gm/dL (3.5-5.0); Albumin/Globulin Ratio 1.4 (1.2-2.2); Alkaline Phosphatase 115 U/L (46-116); Anion Gap 10 (7-16); Aspartate Amino Transferase 13 U/L (0-34); BUN/Creatinine Ratio 19 Ratio (12-20); Bilirubin,Total < 0.2 mg/dL (0.3-1.2); Blood Urea Nitrogen 23 mg/dL (9-23); Calcium 10.0 mg/dL (8.3-10.6); Calcium (Corrected) 10.0 mg/dL (8.5-10.1); Carbon Dioxide 20.9 mMol/L (20.0-31.0); Chloride 110 mMol/L (98-107); Creatinine (Component) 1.2 mg/dL (0.6-1.3); Folate > 24.00 ng/mL (>5.38); Globulin 3.4 gm/dL (2.3-3.5); Glucose 92 mg/dL (74-106); LDH (Lactate Dehydrogenase) 166 U/L (120-246); Osmolality,Calculated 284 (275-295); Potassium 4.4 mMol/L (3.4-5.1); Sodium 141 mMol/L (136-145); Total Protein 8.0 gm/dL (5.7-8.2); Vitamin B12 543 pg/mL (211-911); eGFR 55 See Note
[2025-04-25 11:59] LABS: Ferritin 403 ng/mL (7.3-270.7); Iron 42 mcg/dL (50-170); Percent Iron Saturation 16 % (20-55); Total Iron Binding Capacity 250 mcg/dL (250-425); Unsaturated Iron Binding 208 (225-295)
[2025-05-02 06:34] LABS: Haptoglobin* 328 mg/dL (43-212)
== END | disposition home or self-care (01) ==
LOC: CDIM 09:10 → COPL 09:53
PROVIDERS: PCP Nurse Practitioner Family; Referring Provider Nurse Practitioner Family; Visit Provider Radiology Diagnostic Radiology
DX: R92.8 Other abnormal and inconclusive findings on diagnostic imaging of breast (principal); D50.0 Iron deficiency anemia secondary to blood loss (chronic)
CPT/HCPCS: 36415; 76641; 80053; 82607; 82728; 82746; 83010; 83540; 83550; 83615; 85025; 85046

== ENCOUNTER 2025-05-01 10:49 | Outpatient (RCR) | payer MEDICARE, MEDICAID, SELFPAY | END 2025-05-25 23:59 | disposition home or self-care (01) | LOC: SCTC 10:49 | PROVIDERS: PCP Nurse Practitioner Family; Referring Provider Nurse Practitioner Family; Visit Provider Nurse Practitioner Family | DX: D50.9 Iron deficiency anemia, unspecified (principal); K59.00 Constipation, unspecified; Z87.442 Personal history of urinary calculi | CPT/HCPCS: 99212; G0463 ==

== ENCOUNTER → 2025-05-05 | Outpatient (BNVA) | payer MEDICARE, MEDICAID, SELFPAY | END | disposition home or self-care (01) | PROVIDERS: PCP Family Medicine; Referring Provider Family Medicine; Visit Provider Urology | DX: Z43.6 Encounter for attention to other artificial openings of urinary tract (principal); L89.90 Pressure ulcer of unspecified site, unspecified stage; N31.9 Neuromuscular dysfunction of bladder, unspecified; E66.9 Obesity, unspecified | CPT/HCPCS: 99212; G0463 ==

== ENCOUNTER 2025-05-08 11:03 | Emergency (ER) | payer MEDICARE, MEDICAID, SELFPAY ==
--- NOTE | 2025-05-08 | XR_ITS ---
EXAMINATION: IR removal nephrostomy tube AP abdomen single view INDICATIONS: Order for removal of nephrostomy tube Date and time: May 08, 2025, 1459 hours TECHNIQUE AND FINDINGS: Prepping the patient the nephrostomy tube fell out IMPRESSION: Prepping the patient, the nephrostomy tube fell out
[2025-05-08 11:04] VITALS: BP 162/85; PULSE 80; RESP 17; TEMP 36.8; O2SAT 97
[2025-05-08 11:25] VITALS: PULSE 82; PULSE 84; RESP 17; O2SAT 96; BMI 52.7
--- NOTE | 2025-05-08 11:25 | PC.NURSE ---
Pt. here from home to room 17, pt. states her left nephrostomy tube was on the ground this morning when she woke up, pt. states her right nephrostomy tube is not draining. Pt. states her urostomy tube is draining. Pt. states nephrostomy tubes were placed in February in [facility]. Pt. states she has been trying to get them taken out but told she needs a referrral. Pt. states her primary Doctor is [facility].
--- NOTE | 2025-05-08 11:29 | XR_ITS ---
EXAMINATION: AP chest single view TECHNIQUE: AP portable upright chest single view Date and time: May 08, 2025, 1206 hours INDICATIONS: Chest pain shortness of breath coughing beginning 2 days ago. FINDINGS: Poor inspiratory effort chest Normal heart size No gross pneumonia or pulmonary edema IMPRESSION: Poor inspiratory effort chest exam
--- NOTE | 2025-05-08 11:29 | EKG_ITS ---
[facility] Test Date: 2025-05-08 Pat Name: KANWAL HAGAN Department: Room: - Gender: Female Head Nurse: : 1975 Requested By: Amari Gustafson Order Number: [id number] Reading MD: Amari Gustafson Measurements Intervals [place] Rate: 81 P: 43 DC: 149 QRS: -26 QRSD: 86 T: 18 QT: 348 QTc: 406 Interpretive Statements SINUS RHYTHM POSSIBLE ANTERIOR MYOCARDIAL INFARCTION , PROBABLY OLD [30 ms Q WAVE IN V3/V4, OR R < 0.2 mV IN V4] Compared to ECG 03/17/2025 19:14:35 Incomplete right bundle-branch block no longer present Myocardial infarct finding still present /store/S0/[id number]
--- NOTE | 2025-05-08 11:37 | PD.EDFMALE ---
ED Female Urogenital RME/HPI General Chief complaint: Urogenital-Female Stated complaint: NEPHROSTOMY TUBE OUT Time Seen by Provider: 05/08/25 11:09 Arrival date/time: 05/08/25 11:03 Limitations: no limitations RME / HPI RME / HPI Narrative: 49 year old female with history of spina bifida, neurogenic bladder s/p urostomy, kidney stones, s/p nephrostomy tube placement presents to the ED BIBA from home for nephrostomy tube replacement. Patient states she had the nephrostomy tubes placed at [facility] recently. However, states they have not drained and reportedly they wont see her again without a referral. No other associated symptoms reported. Related Data Home Medications ?Medication ?Instructions ?Recorded ?Confirmed albuterol sulfate 90 mcg/actuation 2 puff inhalation Q4HR PRN 05/25/23 05/05/25 aerosol inhaler Shortness Of Breath cholecalciferol (vitamin D3) 125 125 mcg PO QDAY 05/25/23 05/05/25 mcg (5,000 unit) tablet (Vitamin D3) escitalopram oxalate 20 mg tablet 20 mg PO QDAY 05/25/23 05/05/25 (Lexapro) fluticasone propionate 50 1 spray intranasal BID 05/25/23 05/05/25 mcg/actuation nasal spray,suspension loratadine 10 mg capsule 10 mg PO QDAY 05/25/23 05/05/25 potassium chloride 15 mEq 15 meq PO BID 05/25/23 05/05/25 tablet,extended release(part/cryst) docusate sodium 100 mg capsule 100 mg PO 1XD PRN Constipation 09/25/23 05/05/25 lactulose 10 gram/15 mL oral 15 - 30 ml PO PRN PRN Constipation 09/25/23 05/05/25 solution linaclotide 145 mcg capsule 145 mcg PO QAM 02/23/24 05/05/25 (Linzess) mupirocin 2 % topical ointment 1 applic topical DAILY 04/18/24 05/05/25 polyethylene glycol 3350 17 4 g PO QDAY 07/19/24 05/05/25 gram/dose oral powder (Miralax) zolpidem 10 mg tablet 10 mg PO QDAY 12/18/24 05/05/25 multivitamin 1 tab PO QDAY 01/17/25 05/05/25 potassium citrate 15 mEq (1,620 1,620 mg PO BID 04/23/25 05/05/25 mg) tablet,extended release cranberry extract 250 mg capsule 250 mg PO QDAY 05/05/25 05/05/25 Previous Rx's ?Medication ?Instructions ?Recorded ferrous sulfate 325 mg (65 mg 325 mg PO Q OTHER DAY 1 month #15 02/24/24 iron) tablet tabs ciprofloxacin HCl 500 mg tablet 500 mg PO QDAY #8 tabs 12/20/24 [place] and [place] citrate-citric acid 30 ml PO QDAY #473 mL 12/20/24 550 mg-500 mg-334 mg/5 mL oral soln cefdinir 300 mg capsule 300 mg PO BID #14 caps 04/23/25 Allergies Allergy/AdvReac Type Severity Reaction Status Date / Time vancomycin Allergy Severe RASH/ITCHIN Verified 05/08/25 11:47 G Review of Systems Review of Systems Systems Reviewed: All systems reviewed, normal except as documented Past Medical History Past Medical History NEUROLOGIC: Positive Neurological Disorders and Spina Bifida CARDIAC: Positive Cardiac Disorders, Cardiac Arrhythmia, Angina, Peripheral Vascular Disease and Cellulitis GASTROINTESTINAL: Positive Gastrointestinal Disorders, Obstructive Bowel, Gastroesophageal Reflux Disease and Obesity GENITOURINARY: Positive Genitourinary Disorders and Kidney Stones MUSCULOSKELETAL: Positive Musculoskeletal Disorders and Osteomyelitis HEMATOLOGIC: Positive Blood Disorders and Anemia PSYCHO/SOCIAL: Positive Anxiety OTHER HISTORY: Positive Hospitalization, Autoimmune Disease, MRSA, Chicken Pox and Measles Family History FAMILY HISTORY: Positive Family Surgery Surgical History SURGICAL: Positive Abdominal Surgery, Nephrectomy, Amputation, Brain Shunt, Lumpectomy and Hysterectomy Social History SMOKING STATUS: Never smoker SUBSTANCE USE: does not use ED Exam General Limitations: Present no limitations General appearance: Present alert, in no apparent distress and obese Head Head exam: Present atraumatic, normocephalic and normal inspection Eye Eye exam: Present normal appearance, PERRL and EOMI ENT ENT exam: Present normal exam, normal oropharynx and mucous membranes moist Neck Neck exam: Present normal inspection, full ROM and trachea midline Chest Chest inspection: Present normal inspection and symmetric chest wall rise Respiratory Respiratory exam: Present normal lung sounds bilaterally Cardiovascular Cardiovascular exam: Present regular rate, normal rhythm and normal heart sounds Abdominal Exam Abdominal exam: Present soft and normal bowel sounds Extremities Exam Extremities exam: Present normal inspection and full ROM Back Exam Back exam: Present full ROM and other (Right nephrostomy tube is in, the left nephrostomy tube is out) Neurological Exam Neurological exam: Present alert, oriented X3 and CN II-XII intact Psychiatric Psychiatric exam: Present normal affect and normal mood Skin Skin exam: Present warm, dry, intact and normal color Course Quality Measures none Orders Category Date Time Status Customer Consultant NOW Care 05/08/25 11:29 Active Continuous Pulse Oximetry NOW Care 05/08/25 11:29 Completed EKG (ED ONLY) *Do not use* NOW Care 05/08/25 11:29 Completed Insert IV NOW Care 05/08/25 11:29 Active EKG (ED Only) Stat Exams 05/08/25 11:29 Draft IR nephrostomy tube removal Stat Exams 05/08/25 Completed XR chest 1V portable Stat Exams 05/08/25 11:29 Completed CBC Stat Lab 05/08/25 11:58 Completed Comprehensive Metabolic Panel Stat Lab 05/08/25 12:18 Completed HCG Qualitative,Urine Stat Lab 05/08/25 12:08 Completed Partial Thromboplastin Time Stat Lab 05/08/25 11:58 Completed Prothrombin Time with INR Stat Lab 05/08/25 11:58 Completed Urinalysis, C/S if Indicated Stat Lab 05/08/25 12:08 Completed Urine Culture Stat Lab 05/08/25 12:08 Received Lidocaine 1% Pf 30 ml [Xylocaine 1% Pf 30 ml] Med 05/08/25 15:26 Discontinued 30 ml .ROUTE .STK-MED ONE Morphine* Inj Med 05/08/25 11:55 Discontinued 4 mg IVP X1 ONE Ondansetron Inj [Zofran Inj] Med 05/08/25 11:55 Discontinued 4 mg IVP X1 ONE Sodium Chloride 0.9% 1000 ml [Ns] 1,000 ml Med 05/08/25 11:29 Active IV 100 mls/hr Oxygen Delivery NOW RT 05/08/25 11:29 Active Vital Signs Vital signs: Vital Signs Temperature 98.2 F 05/08/25 11:04 Pulse Rate 80 05/08/25 11:04 Respiratory Rate 17 05/08/25 11:04 Blood Pressure 162/85 H 05/08/25 11:04 Pulse Oximetry (%) 97 05/08/25 11:04 Oxygen Delivery Method Room Air 05/08/25 11:04 Pulse ox is 97% on room air which is adequate. Urogenital - Female MDM Narrative MDM Narrative:: Amberly Jones am scribing for and in the presence of Dr. Correa. Patient data External records reviewed:: [facility] previous records and EMS form Clinical information provided by:: patient and EMS Social determinants that could affect healthcare access:: none Patient has the following chronic illnesses:: spina bifida, neurogenic bladder s/p urostomy, kidney stones, s/p nephrostomy tube placement How is presenting disease/condition affected by chronic disease/condition?: exacerbated by Evaluation data The following diagnostics were reviewed and interpreted by me:: lab results, radiology exam(s) and EKG tracing(s) (EKG @ 06:13 am, interpreted by me, sinus rhythm, rate 81, no STEMI. ) Lab and/or radiology exams considered but not ordered:: None Interpretation Summary: Ordering Physician: Amari Correa MD Date of Service: 05/08/25 Procedure(s): XR chest 1V portable Accession Number(s): [id number] cc: Amari Correa MD; Lm Worthington MD; Jacobo Sher MD~ EXAMINATION: AP chest single view TECHNIQUE: AP portable upright chest single view Date and time: May 08, 2025, 1206 hours INDICATIONS: Chest pain shortness of breath coughing beginning 2 days ago. FINDINGS: Poor inspiratory effort chest Normal heart size No gross pneumonia or pulmonary edema IMPRESSION: Poor inspiratory effort chest exam Dictated By: Lm Worthington MD Signed By: <Electronically signed by Lm Worthington MD in OV> 05/08/25 Ordering Physician: Amari Correa MD Date of Service: 05/08/25 Procedure(s): IR nephrostomy tube removal Accession Number(s): [id number] cc: Amari Correa MD; Lm Worthington MD; Jacobo Sher MD~ EXAMINATION: IR removal nephrostomy tube AP abdomen single view INDICATIONS: Order for removal of nephrostomy tube Date and time: May 08, 2025, 1459 hours TECHNIQUE AND FINDINGS: Prepping the patient the nephrostomy tube fell out IMPRESSION: Prepping the patient, the nephrostomy tube fell out Dictated By: Lm Worthington MD Signed By: <Electronically signed by Lm Worthington MD in OV> 05/08/25 1552 Medications / Prescriptions Medications or Prescriptions considered but not ordered:: None Medication administrations:: Medication Administration History Sodium Chloride (Ns) 1,000 mls @ 100 mls/hr IV .Q10H ONE Stop: 05/08/25 21:28 Last Admin: 05/08/25 12:27 Dose: 100 mls/hr Documented By: ED Discontinued Medications Lidocaine HCl (Lidocaine Inj Pf 1% 30 Ml Vial) Confirm Administered Dose 30 ml .ROUTE .STK-MED ONE Stop: 05/08/25 15:27 Morphine Sulfate (Morphine Sulf Inj 4 Mg/Ml Vial) 4 mg IVP X1 ONE Stop: 05/08/25 11:56 Last Admin: 05/08/25 15:12 Dose: 4 mg Documented By: ED Comments: Given prior to pt. going to IR for removal of nephrostomy tube. Ondansetron HCl (Ondansetron Inj 2 Mg/Ml Inj 2 Ml) 4 mg IVP X1 ONE; Protocol Stop: 05/08/25 11:56 Last Admin: 05/08/25 15:08 Dose: 4 mg Documented By: ED Comments: Given prior to pt. going to IR for nephrostomy tube removal. See above Consultations Consultation(s) initiated? (list below): Yes Consultation #1 (Physician, Specialty, Details): I spoke with IR about replacing nephrostomy tube Diagnosis Urogenital Female Differential Diagnosis: other (nephrostomy dislodgement, nephrostomy tube complication ) Most likely diagnosis given after review of the tests above:: Displacement of nephrostomy tube Admission Indicated Admission indicated?: not indicated Admission Request Was there a request for admission?: No Disposition Plan Disposition Plan: Discharge Discharge Attestation Discharge Attestation: The patient and all family members were given an opportunity to ask questions and understood the discharge instructions. Discharge instructions specifically effects, indications for sooner follow up or return to the emergency department, and the expected course of current diagnosis. Patient condition: Stable Discharge Plan Plan Patient Disposition: HOME (Self Care) Patient condition on transfer: Stable Prescriptions/Referrals Prescriptions/Med Rec: No Action cranberry extract 250 mg capsule 250 mg PO QDAY Rx Instructions: administer with a meal polyethylene glycol 3350 [Miralax] 17 gram/dose powder 4 g PO QDAY multivitamin Tablet 1 tab PO QDAY albuterol sulfate 90 mcg/actuation Hfa Aerosol Inhaler 2 puff INHALATION Q4HR PRN (Reason: Shortness Of Breath) fluticasone propionate 50 mcg/actuation [place],Suspension 1 spray INTRANASAL BID Rx Instructions: administer into each nostril escitalopram oxalate [Lexapro] 20 mg Tablet 20 mg PO QDAY potassium chloride 15 mEq Tablet,Er Particles/Crystals 15 meq PO BID cholecalciferol (vitamin D3) [Vitamin D3] 125 mcg (5,000 unit) Tablet 125 mcg PO QDAY loratadine 10 mg Capsule 10 mg PO QDAY lactulose 10 gram/15 mL solution 15 - 30 ml PO PRN PRN (Reason: Constipation) Patient Comments: TAKE 15 ML TO 30 ML BY MOUTH DAILY NEEDED FOR CONSTIPATION docusate sodium 100 mg capsule 100 mg PO 1XD PRN (Reason: Constipation) Patient Comments: TAKE ONE CAPSULE BY MOUTH EVERY DAY NEEDED potassium citrate 15 mEq tablet extended release 1,620 mg PO BID Patient Comments: TAKE 1 TABLET BY MOUTH TWICE A DAY cefdinir 300 mg capsule 300 mg PO BID Qty: 14 0RF Linzess 145 mcg capsule 145 mcg PO QAM ferrous sulfate 325 mg (65 mg iron) Tablet 325 mg PO Q OTHER DAY 30 Days Qty: 15 0RF mupirocin 2 % ointment 1 applic TOPICAL DAILY Patient Comments: APPLY TO THE AFFECTED AREA(S) EVERY DAY FOR INFECTION Rx Instructions: calcium alginate, adaptic and ABD pad zolpidem 10 mg tablet 10 mg PO QDAY Patient Comments: TAKE ONE TABLET BY MOUTH AT BEDTIME FOR SLEEP pot,sodium citrate-citric acid 550-500-334 mg/5 mL solution 30 ml PO QDAY Qty: 473 0RF Rx Instructions: Take 30ml once daily ciprofloxacin HCl 500 mg tablet 500 mg PO QDAY Qty: 8 0RF Rx Instructions: Take 1 tablet once daily for 8 days Ref[facility]: [facility]MD [Primary Care Provider, Family Practice] - In 1 week Problem List Clinical Impression: Displacement of nephrostomy tube Patient/Caregiver Discharge Instructions Discharge Activity: activity as tolerated Additional Instructions: Follow-up with your urologist as scheduled. Continue your same medications. Print Language: Bhutanese Stand Alone Forms: Teresa Award Info., Patient Portal Info Letter
[2025-05-08 12:04] LABS: Basophils # (Auto) 0.0 Thou/mm3 (0.0-0.2); Basophils % (Auto) 0 % (0-2.5); Eosinophils # (Auto) 0.2 Thou/mm3 (0.0-0.5); Eosinophils % (Auto) 2 % (0-10); Hematocrit 37.0 % (36.0-46.0); Hemoglobin 11.8 g/dL (12.0-16.0); Immature Granulocytes Auto 0.02 Thou/mm3 (0.00-0.00); Lymphocytes # (Auto) 1.1 Thou/mm3 (1.0-4.8); Lymphocytes % (Auto) 14 % (10-50); Mean Corpuscular HGB Conc 31.9 g/dl (31.0-37.0); Mean Corpuscular Hemoglobin 31.8 pg (25.0-35.0); Mean Corpuscular Volume 100 fL (80-100); Monocytes # (Auto) 0.5 Thou/mm3 (0.0-0.8); Monocytes % (Auto) 7 % (0-12); Neutrophils # (Auto) 6.2 Thou/mm3 (1.8-7.7); Neutrophils % (Auto) 77 % (37-80); Nucleated Red Blood Cell # 0.00 Thou/mm3 (0.00-0.00); Nucleated Red Blood Cell % 0 /100 WBC (0); Platelet Count 258 Thou/mm3 (140-440); RDW Standard Deviation 51.7 fL (36.4-46.3); Red Blood Count 3.71 Miln/mm3 (4.00-5.20); White Blood Count 8.1 Thou/mm3 (3.6-11.0)
[2025-05-08 12:14] LABS: Collection Type, Urine Clean Catch
[2025-05-08] MEDS: SODIUM CHLORIDE 0.9% 1000 ML 1,000 ML 100 ML IV (12:27)
[2025-05-08 12:38] LABS: HCG Qualitative,Urine Negative
[2025-05-08 12:49] LABS: Alanine Aminotransferase < 7 U/L (10-49); Albumin, Serum 4.2 gm/dL (3.5-5.0); Albumin/Globulin Ratio 1.2 (1.2-2.2); Alkaline Phosphatase 121 U/L (46-116); Anion Gap 9 (7-16); Aspartate Amino Transferase < 8 U/L (0-34); BUN/Creatinine Ratio 24 Ratio (12-20); Bilirubin,Total 0.2 mg/dL (0.3-1.2); Blood Urea Nitrogen 29 mg/dL (9-23); Calcium 9.6 mg/dL (8.3-10.6); Calcium (Corrected) 9.6 mg/dL (8.5-10.1); Carbon Dioxide 19.2 mMol/L (20.0-31.0); Chloride 114 mMol/L (98-107); Creatinine (Component) 1.2 mg/dL (0.6-1.3); Estimated Creatinine Clearance 68.3 mL/min (>60); Globulin 3.6 gm/dL (2.3-3.5); Glucose 80 mg/dL (74-106); Osmolality,Calculated 287 (275-295); Potassium 4.5 mMol/L (3.4-5.1); Sodium 142 mMol/L (136-145); Total Protein 7.8 gm/dL (5.7-8.2); eGFR 55 See Note
[2025-05-08 13:00] LABS: INR 1.0 (0.9-1.3); Partial Thromboplastin Time 31.5 Seconds (22.0-36.0); Prothrombin Time 11.0 Seconds (9.0-12.2)
[2025-05-08 14:08] LABS: Bacteria,Urine 1+; Bilirubin,Urine Negative (Negative); Blood,Urine 1+ (Negative); Color,Urine Yellow (Lt Yel-Yel); Glucose, Urine Negative (Negative); Ketones,Urine Negative (Negative); Leukocyte Esterase,Urine Positive (Negative); Nitrite,Urine Positive (Negative); PH,Urine 7.5 (5.0-7.0); Protein,Urine 1+ (Neg - Trace); RBC,Urine 18 /hpf (0-3); Specific Gravity,Urine 1.010 (1.001-1.035); Squamous Epithelial Cell,Urine 1 /hpf (0-5); Urobilinogen,Urine Negative mg/dL (0.0-1.0); WBC,Urine 406 /hpf (0-5)
[2025-05-08 14:10] LABS: Clarity,Urine Turbid (Clear/Hazy); Culture Indicated,Urine Yes
[2025-05-08] MEDS: ONDANSETRON INJ 2 MG/ML INJ 2 ML 4 MG IVP (15:08)
[2025-05-08] MEDS: MORPHINE SULF INJ 4 MG/ML VIAL IVP (15:12)
--- NOTE | 2025-05-08 15:15 | PC.NURSE ---
Pt. to IR to have right nephrostomy tube removed, pt. taken with Dian DICKSON.
--- NOTE | 2025-05-08 15:28 | PC.NURSE ---
Patient in IR from ED. Nephrostomy tube fell off when prepping skin around the site. Stitch was already out. Patient did not complain of any discomfort. Will take patient back to ER room 17.
--- NOTE | 2025-05-08 15:35 | PC.NURSE ---
report given to Anabella DICKSON.
--- NOTE | 2025-05-08 15:48 | PC.NURSE ---
PATIENT RETURNED FROM SURGERY DEPT, PATIENT HAD NO PROCEDURE DONE, TUBE CAME OUT ON OWN, WITH NO COMPLIATIONS
[2025-05-08 15:49] VITALS: BP 132/79; PULSE 80; PULSE 81; RESP 18; RESP 94; O2SAT 93; O2SAT 94
--- NOTE | 2025-05-08 16:04 | PC.SS ---
Patient to d/c home. SS arranged Amdal gurschurz transport. Amdal will picker between 5-5:30pm. Floor nurse aware.
[2025-05-08 17:09] VITALS: BP 127/96; PULSE 89; RESP 20; TEMP 37.2; O2SAT 96
== END 2025-05-08 18:21 | disposition home or self-care (01) ==
PROVIDERS: Emergency Provider Family Medicine; PCP Family Medicine
DX: Z43.6 Encounter for attention to other artificial openings of urinary tract (principal); Z93.6 Other artificial openings of urinary tract status; N31.9 Neuromuscular dysfunction of bladder, unspecified; Q05.9 Spina bifida, unspecified; Z87.442 Personal history of urinary calculi
CPT/HCPCS: 50435; 36415; 71045; 80053; 81001; 81025; 85025; 85610; 85730; 87086; 93005; 96374; 96375; 99284; J2270; J2405; J7030

== ENCOUNTER → 2025-06-11 | Outpatient (CLI) | payer MEDICARE, MEDICAID, SELFPAY | END | disposition home or self-care (01) | LOC: SLDO 15:38 | PROVIDERS: PCP Hospitalist; Referring Provider Hospitalist; Visit Provider Hospitalist | DX: N39.0 Urinary tract infection, site not specified (principal) | CPT/HCPCS: 87077; 87086; 87186 ==

== ENCOUNTER → 2025-06-24 | Outpatient (CLI) | payer MEDICARE, MEDICAID, SELFPAY ==
[2025-06-24 11:33] LABS: Collection Type, Urine Clean Catch
[2025-06-24 12:00] LABS: Basophils # (Auto) 0.0 Thou/mm3 (0.0-0.2); Basophils % (Auto) 0 % (0-2.5); Eosinophils # (Auto) 0.2 Thou/mm3 (0.0-0.5); Eosinophils % (Auto) 3 % (0-10); Hematocrit 36.8 % (36.0-46.0); Hemoglobin 11.6 g/dL (12.0-16.0); Immature Granulocytes Auto 0.01 Thou/mm3 (0.00-0.00); Lymphocytes # (Auto) 1.0 Thou/mm3 (1.0-4.8); Lymphocytes % (Auto) 19 % (10-50); Mean Corpuscular HGB Conc 31.5 g/dl (31.0-37.0); Mean Corpuscular Hemoglobin 31.6 pg (25.0-35.0); Mean Corpuscular Volume 100 fL (80-100); Monocytes # (Auto) 0.4 Thou/mm3 (0.0-0.8); Monocytes % (Auto) 7 % (0-12); Neutrophils # (Auto) 3.8 Thou/mm3 (1.8-7.7); Neutrophils % (Auto) 70 % (37-80); Nucleated Red Blood Cell # 0.00 Thou/mm3 (0.00-0.00); Nucleated Red Blood Cell % 0 /100 WBC (0); Platelet Count 242 Thou/mm3 (140-440); RDW Standard Deviation 53.4 fL (36.4-46.3); Red Blood Count 3.67 Miln/mm3 (4.00-5.20); White Blood Count 5.4 Thou/mm3 (3.6-11.0)
[2025-06-24 12:07] LABS: Bilirubin,Urine Negative (Negative); Blood,Urine 2+ (Negative); Glucose, Urine Negative (Negative); Ketones,Urine Negative (Negative); Leukocyte Esterase,Urine Positive (Negative); Nitrite,Urine Positive (Negative); PH,Urine 7.0 (5.0-7.0); Protein,Urine 2+ (Neg - Trace); RBC,Urine 11 /hpf (0-3); Specific Gravity,Urine 1.010 (1.001-1.035); Squamous Epithelial Cell,Urine < 1 /hpf (0-5); Urobilinogen,Urine Negative mg/dL (0.0-1.0); WBC,Urine 3 /hpf (0-5)
[2025-06-24 12:16] LABS: Albumin, Serum 3.9 gm/dL (3.5-5.0); Anion Gap 11 (7-16); BUN/Creatinine Ratio 25 Ratio (12-20); Blood Urea Nitrogen 38 mg/dL (9-23); Calcium 8.6 mg/dL (8.3-10.6); Calcium (Corrected) 8.7 mg/dL (8.5-10.1); Carbon Dioxide 17.4 mMol/L (20.0-31.0); Chloride 116 mMol/L (98-107); Creatinine (Component) 1.5 mg/dL (0.6-1.3); Glucose 121 mg/dL (74-106); Osmolality,Calculated 296 (275-295); Phosphorous 3.6 mg/dL (2.4-5.1); Potassium 4.4 mMol/L (3.4-5.1); Sodium 144 mMol/L (136-145); Uric Acid 5.8 mg/dL (3.1-7.8); eGFR 42 See Note
[2025-06-24 12:18] LABS: Vitamin D 25 Hydroxy Total 56.8 ng/mL (7.3-40.2)
[2025-06-24 12:23] LABS: Clarity,Urine Turbid (Clear/Hazy); Color,Urine Yellow (Lt Yel-Yel)
== END | disposition home or self-care (01) ==
LOC: COPL 10:59
PROVIDERS: PCP Family Medicine; Referring Provider Internal Medicine; Visit Provider Internal Medicine
DX: N18.30 Chronic kidney disease, stage 3 unspecified (principal); N20.0 Calculus of kidney
CPT/HCPCS: 36415; 80069; 81001; 82306; 84550; 85025